=== PATIENT | female | born 1990 | race Caucasian/White ===

== ENCOUNTER 2021-11-27 08:00 | Outpatient (RCR) | payer OTHER, MEDICAID, SELFPAY ==
--- NOTE | 2021-11-27 10:10 | BH.SGPN.GN ---
Behaviors/Verbalizations/Mental Status: [] Eye contact is good. Motor activity is appropriate. Appearance is casual. Speech is Appropriate. Mood is anxious. Affect is congruent. Thoughts are linear and logical. No evidence of psychosis. Client Response/Progress/Benefit: [] Pt did not participate in group discussions. Attentive AEB by note taking during psychoeducation on the types cognitive distortions, the CBT triangle, and automatic thoughts. This group was very information heavy as group was introduced to the various cognitive distortions. Attentive during interactive discussions amongst peers in which they gave examples of certain cognitive distortions. Benefited from increased awareness and education on cognitive distortions and how they impact mental health. Will continue in IOP to prevent decompensation, maintain safety, and improve functioning. Narrative Note: []
--- NOTE | 2021-11-27 11:10 | BH.SGPN.GN ---
Behaviors/Verbalizations/Mental Status: []Eye contact is fair. Motor activity is appropriate. Appearance is casual. hygiene is fair. Speech is Appropriate. Mood is anxious. Affect is constricted. Thoughts are linear and logical. No evidence of psychosis. Client Response/Progress/Benefit: []Pt was semi-engaged participant AEB lmited contributions throughout group, but did appear to listen attentively to psychoeducation and others.Questions were posed in the fashion of Jeopardeshawn and the categories included; Identifying the Cognitive Distortion, Ways to reframe cognitive distortions, Examples of cognitive distortions, and other areas related to cognitive distortions. This was an engaging way to help reinforce psychoeducation and to help client retain the information through examples and practicing. Pt was more passive in the coming up with answers to the questions, but did appear to listen to the material. Benefited from rehearsing ways to challenge/reframe cognitive distortions and by gaining increased insight into examples/definitions of 10 most common cognitive distortions. Will continue in IOP to increase healthy coping, increase socialization, and prevent decompensation.
--- NOTE | 2021-11-27 12:15 | BH.COMM ---
Communication Note - Communication with Client Communication Note: Met with patient after IOP today to address and concerns. Pt is very hesitant to meet with program psychiatrist Dr. Wong this week. Meeting with an unfamiliar psychiatrist is trigger for patient as she is fearful psychiatrist will diagnose her with something new and disrupt her current treatment with established providers (new dx or try to change medications). Pt is aware that meeting with program psychiatrist is requirement for the program. Due to this causing significant distress pt's concerns were discussed with treatment team and we problem-solved ways to adjust requirements so as not to cause decompensation and encourage continued participation in the program. Pt agrees to meet with program psychiatrist for initial assessment only.
--- NOTE | 2021-11-27 14:00 | BH.COMM_ITS ---
Communication Note - Communication with Client Communication Note: Met with patient to complete initial paperwork. No sig nificant changes since pre-admission screening. Completed [place] Suicide Screening. Moderate risk. Pt has hx of one prior suicide attempt, resulting in hospitalization approx. 12 years ago in which pt attempted to overdose on her psychiatric medications. Hx of prior preparatory behavior in which pt gathered her pills with plans to overdose, but denies this happening in the past 2-3 years. Endorses passive thoughts of not caring if something happened to her or if she did not wake up, but not for the past 2 weeks. Denies any current plan or intent and reports ?I?ve worked really hard on getting into a good place with that. I?m doing really well in that area right now?. Hx of self-harm via superficial lacerations, last occurring 5 years ago. Denies access to lethal means and reports her mother helps to cyber security manager her medications. Pt denies hx of HI, plan or intent. Case discussed with Dr. Fitzgerald with plan to admit to IOP level of care with dx of Bipolar 2 disorder F31.81
--- NOTE | 2021-11-27 14:08 | BH.MTP_ITS ---
[facility] Treatment Plan - Patient Information Program Physician:: Dr. Tammie Fitzgerald Primary Therapist:: SHRUTHI Lua - Psychiatric Diagnoses Psychiatric Diagnoses:: Bipolar II Disorder Diagnosis Code(s):: F31.81 - Estimated LOS Estimated LOS (in weeks):: 6 Problem/Goal #1 - Problem/Goal #1 Stated Goal:: Client will reduce depression and worthlessness due to Bipolar Disorder through IOP Services. Description of Barriers: Client's negative thinking, distorted thoughts, difficulties opening up to others, anhedonia, and suspicion of others are potential barriers to treatment. Functional Impact: The patient is a 31-year-old single, female with a history of bipolar 2 disorder and post-concussion syndrome who was referred to the [facility] intensive outpatient program by her current therapist due to intrusive, negative thoughts, depression and anxiety. Pt reports difficulty trusting new providers, though reports trusting her current providers and is satisfied with their care. She has fear of talking about her past as it triggers bad memories, and therefore provided limited information. At time of intake, pt endorsed hopelessness, worthlessness, isolation, loss of enjoyment, low energy and concentration, ruminating thoughts, anxiety, fleeting, passive suicidal ideation but denies active suicidal ideation, plan for suicide, homicidal ideation, hallucinations or delusions. She denies a history of OCD, eating disorder and is not comfortable discussing trauma or possible PTSD. Pt reports current sx are impacting occupational and social functioning. - Objectives Objective #1 Stated Objective: Client will learn and utilize 2-3 healthy coping strategies to manage depressive symptoms as shown by reduced DSM-5 cross-cutting symptom measure score. Interventions: Therapist will utilize CBT techniques to assist client with understanding the connection between thoughts, feelings and behaviors. Education will be provided on behavioral activation. Therapist will assist client in learning internal coping strategies to manage depressive symptoms, along with helping client identify triggers. Discharge Criteria: Client will have achieved this goal when can verbalize and has practiced at least 2 healthy coping strategies and pt?s score on the DSM 5 cross cutting measure for depression has been decreased and per pt?s report daily functioning has improved. Target Date: 01/08/22 Review Date: 12/18/21 Objective #2 Stated Objective: Client will identify and replace 2-3 negative thinking patterns that reinforce depressive symptoms. Interventions: Therapist will assist client in developing an awareness of the cognitive messages that reinforce depressive thinking. Therapist will also assist client in challenging negative thinking patterns. Discharge Criteria: Client will have achieved this goal when can identify at least 2 negative thinking patterns, replace negative thinking with more positive, affirmative messages. Target Date: 01/08/22 Review Date: 12/18/21 Problem/Goal #2 - Problem/Goal #2 Stated Goal:: Stabilize anxiety level while increasing ability to function on a daily basis. Description of Barriers: Client's negative thinking, distorted thoughts, difficulties opening up to others, anhedonia, and suspicion of others are potential barriers to treatment. Functional Impact: The patient is a 31-year-old single, female with a history of bipolar 2 disorder and post-concussion syndrome who was referred to the [facility] intensive outpatient program by her current therapist due to intrusive, negative thoughts, depression and anxiety. Pt reports difficulty trusting new providers, though reports trusting her current providers and is satisfied with their care. She has fear of talking about her past as it triggers bad memories, and therefore provided limited information. At time of intake, pt endorsed hopelessness, worthlessness, isolation, loss of enjoyment, low energy and concentration, ruminating thoughts, anxiety, fleeting, passive suicidal ideation but denies active suicidal ideation, plan for suicide, homicidal ideation, hallucinations or delusions. She denies a history of OCD, eating disorder and is not comfortable discussing trauma or possible PTSD. Pt reports current sx are impacting occupational and social functioning. - Objectives Objective #1 Stated Objective: Client will increase social interactions and learn 2-3 strategies to improve interpersonal effectiveness skills. Interventions: Therapist will use cognitive restructuring techniques and help client gain awareness of negative thoughts that reinforce avoidance behaviors and fear of judgement. Therapist will help client incorporate mindfulness, opposite action, and self-talk strategies to manage anxiety. Discharge Criteria: Pt will report increased social interactions and use of at least two interpersonal effectiveness skills to reduce anxiety in these situations. Target Date: 01/08/22 Review Date: 12/18/21 Objective #2 Stated Objective: Pt will decrease anxious symptoms AEB pt?s score on the DSM 5 cross-cutting measure improve pt?s daily functioning. Interventions: Through groups and individual therapy, pt will be provided education about anxiety?s impact on body and common physiological reaction to anxiety. Therapist will teach pt appropriate breathing techniques and build healthy coping skills to manage daily anxieties. Discharge Criteria: Pt will have met this goal when pt?s score on the DSM 5 cross cutting measure for anxiety has been decreased and per pt?s report daily functioning has improved. Target Date: 01/08/22 Review Date: 12/18/21
--- NOTE | 2021-11-27 14:08 | BH.MDN ---
Multi-Disciplinary Note - Note 30-min Individual Time Started:: 08:53 Date: 11/27/21 Purpose of session/treatment goals addressed:: To gather information on client's current stressors, symptoms, triggers, and tx goals. Another goal was to build rapport, provide psychoeducation, and provide emotional support. Eye Contact:: Good Motor Activity:: Appropriate, Restless Appearance:: Casual Speech:: Pressured Mood:: Anxious, Depressed Affect:: Constricted Thoughts:: Linear, Logical, Racing, No evidence of hallucinations/delusions noted Staff Interventions:: psychoeducation on: - learned behaviors, coping skill development, rapport building, strengths perspective, treatment planning, goal setting Client Response:: Pt responded well to session, open to meeting with therapist. Pt reports she has been struggling with her mental health for much of her life, but that her symptoms have gotten much worse in the past two years. Shared struggling to cope throughout the pandemic and found that she spent a majority of her time isolated, watching television, or stress eating. Pt noted that she has struggled with maintaining healthy supports as she engages in social activities but does not remember or think about keeping in touch with the people she meets. States she does have on friend she made through an [employer] group help by her outpatient mental health providers, [facility] in [place]. Pt has worked with this agency for the last 2 years and was in counseling for 10 years at another agency prior to that. Reports counseling has been helpful in learning to better manage her emotions and cope with depression and suicidal thoughts in the past. Pt stated her primary stressor is coping with post-concussion syndrome as well as developing more independence. Pt has had 2 concussions in the past year with the first requiring hospitalization. She noted struggling to decipher whether her fatigue is mental health or physical health related at times and would like to develop strategies for better checking-in with herself. Pt would also like to improve self-confidence, improve social network, and better manage her anxiety. She indicated not wanting to focus on her depressive sx as she is working on this in outpatient tx and finds it upsetting to revisit past depressive episodes. Reports feeling encouraged and excited to begin the IOP tx process. Risks/Concerns:: Pt denies any active suicidal ideations, plan, or intent as of 11/27/21. denies any HI. future oriented and motivated. Progress Toward Goals/Plan:: Pt's first day of IOP tx. Pt shared she has social anxiety, so group therapy is out of her comfort zone, but pt is hoping to improve anxiety and find skills through the groups?. Pt currently endorses a depressed mood, low confidence, racing and ruminating thoughts, anxiety, guilt, and history of fleeting passive SI. Pt reports her symptoms are causing her to rely heavily on supports and she would like to improve her ability to cope independently. Pt has outpatient counseling at [facility] services already established. Pt will continue IOP tx to prevent decompensation, increase healthy coping skills, and improve overall functioning. Time Stopped:: 09:30
--- NOTE | 2021-11-29 08:55 | BH.SGPN.GN ---
Behaviors/Verbalizations/Mental Status: []Eye contact fair to good, casually dressed, motor activity appropriate, speech normal rate and tone, mood anxious and depressed, constricted affect, thoughts linear and intact, no evidence of delusions or hallucinations. Reviewed pt's symptom tracker, denies suicidal ideation, plan, or intent as of this date 11/29/21. Client Response/Progress/Benefit: []Pt responded well to session, attentive and nodding at times as other?s shared throughout. Pt reports feeling irritated this morning and shared that she has recently had an influx in physical health sx. Noted that her physical health has been taking longer than she had expected to heal and that this has been impacting her mood in turn. Noted trying to remind herself to slow down and continue to practice gratitude daily which has been helpful. Benefited from structure and support of group setting. Recommended continued IOP tx to continue to improve healthy coping skills, reduce depressive sx, and further improve mood stability. Narrative Note: []
--- NOTE | 2021-11-29 10:00 | BH.SGPN.GN ---
Behaviors/Verbalizations/Mental Status: []Pt alert and oriented, neatly dressed and groomed. Eye contact stares. Motor activity appropriate. Speech within normal limits. Affect constricted, mood anxious. Thoughts linear, logical, no signs of hallucinations or delusions. Client Response/Progress/Benefit: []Pt responded well to session AEB sharing when prompted and listening attentively to others. Pt ?was quiet throughout group, but she appeared to be taking notes and nodding at times. Pt appeared to connect to psychoeducation on types of boundaries, including physical, emotional, and intellectual. Pt listened attentively and nodding throughout discussion in which group members shared personal examples of different types of boundaries. Pt appeared to benefit from increased knowledge of the types of boundaries and increased self-awareness of personal boundaries. Will continue IOP tx to prevent decompensation, reduce intensity of symptoms, and improve daily functioning. ? Narrative Note: []
--- NOTE | 2021-11-29 10:10 | BH.NA_ITS ---
Physical Data - Vital Signs Pulse Rate: 86 Blood Pressure: 122/81 - Height/Weight Height: 1.7 m Weight:: 71.214 kg Weight in Pounds: 157.0 lbs Current Medication Compliance - Medication Compliance Do you take your medication as prescribed?: Yes Nutritional History - Appetite Nutritional Instructions:: If client shows signs of a swallowing problem, weight change of 10 pounds or more in the last month, or is on a diabetic diet, the physician will review and request a dietitian consult, as appropriate. All unintentional weight loss will be referred to the physician for decision on need for dietitian consult. Describe your appetite:: Good - Client states she gained weight during COVID lockdown but states she has since lost it all. Functional Assessment - Sleep Pattern Describe any problems with sleeping: Client states she prioritizes sleep and sleeps about 8 hours per night. - Activities Motor Activity:: Functional Sensory/Communication Assess - Communication Problems Do you have difficulty understanding what people are saying?: No Medical Problems/History - Neurological Conditions Neurological: Other (See comments) - had concussions in 2019 and 2020 and had post-concussive syndrome - Pain Assessment Do you have acute or chronic pain?: No Surgical History - Surgical History Have you had any surgeries? If so, list type and date:: Yes - wisdom teeth removal Substance Abuse - Substance Abuse Please describe substance abuse in the last 30 days:: Client reports past social alcohol use but denies at this time. Client denies tobacco or substance use. Client reports rare caffeine use. Mental Status Summary - Mental Status Significant Findings/Observations on Appearance and Mood:: Client is alert and oriented x 4. Client is cooperative with assessment and makes fair eye contact. Client is casually groomed with good hygiene. Client's voice has normal rate and volume. Client has normal processing and makes logical associations. Client denies delusions/hallucinations. Client reports some passive SI, denies intent/plan at this time, but does states sometimes SI worsens around when her menstrual cycle starts. Suicide Assessment - Suicidal Ideation Are you currently or have you been suicidal in the past?: Yes - passive SI at times, denies at this time Suicidal Intentional Rating Scale (SIRS): Suicidal thoughts (past) Physician Notification: If Active suicidal thoughts/Will not contract for safety is checked, contact physician and document in the Physician Notification section below. Assault History/Potential Past Psychiatric History - MH Treatment Hx Past Psychiatric Medications:: Client states lots Age of first mental health symptoms: Client was diagnosed with bipolar 2 at age 19 and has been on medication for mental health since then. Describe (age, circumstance, etc) any past hospitalizations: Several hospitalizations, but none since 2011. Client had a suicide attempt by overdose in 2009. Current providers for mental health treatment (counselor, psychiatrist, medical case manager, etc.): counselor Nehemias Wick at [facility]. Psychiatrist- Dr. Archie House in [place]. Fall Risk Assessment - Age Age: Less than 60 - Mental Status Mental Status: Willing & able to ask for assistance when needed - Physical Status Physical Status: No problems - Impairments Impairments: None - Elimination Elimination: Continent AND independent - Gait or Balance Gait or Balance: Walks independently - Hx of Falls History of falls in the past 6 months: No known history - Medications/Substances Psychotropics:: Antidepressants, Antipsychotics Medications/substances used within the past 24 hours or ordered to administer: 1-2 of the medications/substances listed above - Total Score Total Points:: 1 RN Summary of Impressions - Impressions Recommendations: Include psychiatric and medical issues, treatment planning recommendations, and discharge planning needs. Impressions: Psychiatric Issues: bipolar 2 disorder - Level of Care How do the client's current symptoms and functional deficits support need for this level of care?: Client was referred to IOP by therapist for worsening intrusive thoughts and fleeting SI. Client states her anxiety and depression have worsened since her concussions in 2019 and 2020 and having post-concussive syndrome and COVID happening with a lockdown which increased her isolation. Client states since 2019, she has found it harder to cope with things. Client also reports a lot of intrusive negative thinking and feeling hopeless. Client reports passive SI at times, stating she feels she has more SI thoughts around when her menses cycle starts. IOP will promote gains and prevent further decompensation while providing social support and skills training.
[2021-11-29 10:30] VITALS: BP 122/81; PULSE 86
--- NOTE | 2021-11-29 11:05 | BH.SGPN.GN ---
Behaviors/Verbalizations/Mental Status: [] Client alert and oriented, casually dressed and fairly groomed. Eye contact fair. Motor activity normal. Speech within normal limits. Affect constricted, mood anxious. Thoughts linear and intact. no signs of delusions or hallucinations. Client Response/Progress/Benefit: [] Client passive participant AEB no contributions throughout group discussion. However, client did appear to listen to psychoeducation about boundary styles and listen attentively to others. Group discussed the different boundary setting styles which included rigid, porous, and flexible. Client worked in small group discussion of identifying the pros and cons of each boundary setting style. As a group discussed various strategies to set boundaries. Client did not share which boundary style she connects with the most. Seemed to benefit from increased awareness of how different boundary styles can impact mental health. Client will continue IOP tx to increase ability to regulate emotions, challenge distortions, and increase application of learned skills.
--- NOTE | 2021-11-29 12:27 | BH.PSY.EVA_ITS ---
Psychiatric Evaluation Initial Evaluation Initial Evaluation: History of Present Illness: [] The patient is a 31-year-old single, female with a history of bipolar 2 disorder who was referred to the [facility] intensive outpatient program by her current therapist due to intrusive, negative thoughts, depression and anxiety. Records were reviewed including a letter from the patient's therapist and the patient has a history of negative past experience with psychiatric providers inpatient and outpatient and has difficulty trusting new providers. She trusts her current providers and is very satisfied with their care. She has fear of talking about her past as it triggers bad memories. In the past talk of the patient's deficits has often led to decompensation. For this reason the patient was given the option of refusing to discuss certain topics during the evaluation. The patient endorses being somewhat down and sad. She endorses hopelessness, worthlessness but denies guilt. She had some decompensation and extreme isolation during the COVID pandemic and has been continuing to isolating herself. She describes a history of 2 concussions in 2019 in 2020 which did not involve loss of consciousness. The patient states that she was diagnosed with postconcussive syndromes after those and this has caused her mental health symptoms to also worsen. She spends a lot of time worrying and ruminating negatively fully about the possibility of postconcussive syndrome worsening. Her appetite is okay and she is sleeping 8 hours a night. She enjoys a few things she does but not many. Energy level is low and concentration has been decreased since her concussions in 2019. She is a worrier by nature and worries a lot. She is fearful that her mental health symptoms could worsen. She has had panic attacks but she has not had any had any for several years now. She does have a history of self-harm but she does not wish to elaborate any further on that. She denies a history of OCD, eating disorder and is not comfortable discussing trauma or possible PTSD. She admits to passive thoughts that she would not care if she . She admits to fleeting, passive suicidal ideation but denies active suicidal ideation, plan for suicide, homicidal ideation, hallucinations or delusions. She has had hypomania in the past but she states that it is not very often and has not had it recently. Primary support she has her mom and her sister. Current Psychiatric Medications: [] Seroquel 100 mg p.o. nightly and 25 mg p.o. 3 times daily as needed; Wellbutrin XL 150 mg p.o. every morning; Lamictal 300 mg p.o. nightly Past Psychiatric History: [] The patient has had several prior psychiatric admissions with the most recent one being at [facility] in 2011. She had a suicide attempt in 2009 but does not wish to go into detail about this. She has a counselor or therapist name Nehemias Wick and gets weekly counseling which she feels has been helpful. She also has a psychiatrist currently. Substance Use History: [] She is a non-smoker and no vaping. No marijuana use. No alcohol use and no drug use. No rehab ever. Allergies: [] No known allergies Medications: [] Vitamins and psych meds as dictated above. Past Medical History: [] History of concussions where the patient stood up in a car and hit her head on the ceiling in 2019. No loss of consciousness ever. Patient describes postconcussive syndrome being diagnosed with decreased concentration and other symptoms including worsening of her mental health symptoms since the concussion. [place] teeth surgery and no other surgery. She is a 0 para 0 female with regular menstrual periods and is not on any control. She does have some symptoms of PMS. Family Psychiatric History: [] Mother and father both in their 60s. Paternal grandfather and paternal aunt have a history of depression. No completed suicides in the family. No substance issues in the family. Personal/Social History: [] The patient refuses to give a developmental or social history as talking about her past sometimes triggers her to feel worse. Legal History: [] No arrests. 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 No DUIs. Review of Systems: [] Negative except as noted in present illness but could be incomplete as the patient did not want to elaborate on certain questions. Vital Signs: [] Vital signs and exam were reviewed in the records and in the nurses notes and updated and the patient is deemed medically able to participate in the IOP program. Mental Status Examination: [] The patient is a 31-year-old female who appears normal for stated age and is casually dressed and groomed with good hygiene. She is ambulatory with a normal gait and has no psychomotor agitation or retardation. She is cooperative but somewhat reticent during the interview. Speech is normal rate and rhythm and fluent with no pressure. Eye contact is somewhat poor as the patient looks down or away during most of the interview. Mood is depressed. Affect is constricted. Thought process is goal-directed and organized. Thought content: There is evidence of passive thoughts of and fleeting, passive suicidal ideation. There is evidence of mistrust of psychiatric providers. There is no evidence of active suicidal ideation, plan for suicide, homicidal ideation, hallucinations, delusions or symptoms of elise. Reality testing is intact. Intelligence is average or above. Judgment is in tact. Insight is fair to good. Impulsivity is moderate. Diagnoses: [] 1. Bipolar 2 disorder Plan: [] The patient will start the IOP program at [facility] as the structure, support, education and group therapy will hopefully prevent worsening of the patient's symptoms which could lead to hospitalization. She felt safe during the interview and if it anytime she does not feel safe she will let us know or go to the emergency room. The risk, options and possible complications and side effects of the medications were discussed with the patient and she understands and accepts these. The patient had questions about possible symptoms of PMS and the various treatments of PMS were discussed with the patient and she understands the options and possible side effects of those treatments including control pills or taking a low-dose of an SSRI in the luteal phase of her menstrual cycle. This was not discussed with the patient but Lamictal can cause cognitive symptoms at 300 mg and possibly could be considered to be decreased to possibly help with some of the postconcussive symptoms or prevent their exacerbation. No medication changes were made today. The patient wishes to have her outpatient providers to manage her medications. The patient will continue to follow-up with outpatient providers and I will see the patient in follow-up as needed and on a regular basis while she is in the IOP program.
--- NOTE | 2021-11-29 12:39 | BH.DR.ITP ---
Initial Treatment Plan Patient Information Visit Information: ADMISSION DATE: EXPECTED LOS: 4-6 weeks Problems/Symptoms Problem #1:: Depression Symptom:: Sadness, hopelessness, worthlessness, anhedonia, low energy, decreased concentration, passive thoughts of , fleeting, passive suicidal ideation Problem #2:: Anxiety Symptom:: Worry, rumination
--- NOTE | 2021-12-01 09:05 | BH.SGPN.GN ---
Behaviors/Verbalizations/Mental Status: [] Eye contact is poor. Motor activity is appropriate. Appearance is casual. Speech is Appropriate. Mood is anxious. Affect is congruent. Thoughts are linear and logical. No evidence of psychosis. Reviewed daily check in sheet and no reports of SI. Client Response/Progress/Benefit: [] Pt participated at times during the group discussion. Attentive. Daily symptom tracker notes / for anxiety and irritability. He check-in was very brief and concise. States that a mental health win was increased awareness and insight identifying when she is using the cognitive distortion of ?mental filter?. Discussed how this is helpful to her mental health. Also shared that she called support when it was appropriate. Stressor is ?relationship conflict? which she did not elaborate. Emotion for today is ?tired and anxious?. Benefited from group support, encouragement, and feedback. Will continue in IOP to prevent decompensation, increase healthy coping, and decrease negative thoughts. Narrative Note: []
--- NOTE | 2021-12-01 10:13 | BH.SGPN.GN ---
Behaviors/Verbalizations/Mental Status: []Client alert and oriented, casually dressed and groomed. Eye contact good. Motor activity WNL. Speech appropriate rate/tone, providing limited input unless prompted. Affect congruent, mood dysthymic and anxious. Thoughts linear, logical, no signs of hallucinations or delusions.?? Client Response/Progress/Benefit: []Pt responded well to session, provided input when prompted and listening attentively throughout. Pt participated in group discussion regarding mental health benefits of change. Noted that change can result in improved perspective. Pt identified three small personal changes to improve their mental health as: increased confidence, decreased all or nothing thinking, and more gratitude. Identified current barriers keeping pt from making those changes to be avoidance. Pt appeared to benefit from gaining awareness of personal changes that would improve mental health and the barriers keeping client stuck. Progress noted in pt increased comfort and engagement in the group setting. Pt to continue IOP tx to further increase healthy coping skills, improve anxiety management, and maintain current gains.? Narrative Note: []
--- NOTE | 2021-12-01 11:14 | BH.SGPN.GN ---
Behaviors/Verbalizations/Mental Status: []Client alert and oriented, casually dressed and groomed. Eye contact good. Motor activity appropriate. Speech within normal limits, quiet. Affect congruent, mood anxious. Thoughts linear, logical, no signs of hallucinations or delusions. Client Response/Progress/Benefit: []Pt responded well to session, participating in activity, and providing input when prompted. Did well to process the activity and identify how barriers and skills used in accomplishing the task related to making healthy changes in one?s own life. Pt selected one change they would like to make and created a SMART goal to help make this change. Shared she wants to work on increasing her ability to have more of an ?attitude of gratitude?. Discussed that this change would help client have more confidence and hope. Client?s goal was to start actively identifying small positives she notices throughout the day and writing these down. Client benefited from working with group to identify strategies to overcome barriers to change and create a plan for implementing one small change promoting personal growth. Client recommended to continue IOP tx to reduce anxiety and improve interpersonal effectiveness skills. Narrative Note: []
--- NOTE | 2021-12-04 09:05 | BH.SGPN.GN ---
Behaviors/Verbalizations/Mental Status: [] Client alert and oriented, casually dressed and groomed. Eye contact normal. Motor activity appropriate. Speech normal. Affect congruent, mood euthymic. Thoughts linear, logical, no signs of hallucinations or delusions. Reviewed client?s symptom tracker, no risk for suicidal ideation, plan, or intent as of 12/04/21 Client Response/Progress/Benefit: [] Client responded well to session, offering ideas to peers and providing encouragement. Client reports feeling overwhelmed this morning with indicated that she cannot pin point the cause for her feeling this wa, but experiencing a general sense of it. Client shared her recent wins which included confronting conflict she had with a friend prosocially with positive communication. Cient indicated that felt freeing to be able to deal with conflict in a healthy way that ended positively for her. Client also shared reaching out to a support instead of ruminating on her thoughts. Client appeared to benefit from reflecting on her growth. Client will continue IOP tx to increase overall functioning. Narrative Note: []
--- NOTE | 2021-12-04 10:10 | BH.SGPN.GN ---
Behaviors/Verbalizations/Mental Status: [] Client alert and oriented, casually dressed and groomed. Eye contact good. Motor activity appropriate. Speech within normal limits. Affect congruent, mood euthymic. Thoughts linear, logical, no signs of hallucinations or delusions. Client Response/Progress/Benefit: [] Client responded well to session, attentive and providing input throughout. Participated in discussion of things that can keep people feeling trapped or stuck in life including; avoidance, unhealthy coping, isolation, inconsistent boundaries, and surrounding self with toxic people. Group discussed the connection between thoughts, emotions, and behaviors as well as how negative thinking can keep a person stuck. Client attentive during psychoeducation on maintenance cycles. Client able to identify negative thoughts that have kept client stuck which included ?I am broken. =Client identified these thoughts lead her to be afraid of constant failure. Appeared to benefit from gaining awareness of how negative thoughts reinforce mental health symptoms and keep people stuck. Will continue IOP tx to prevent decompensation and increase overall functioning. Narrative Note: []
--- NOTE | 2021-12-04 11:10 | BH.SGPN.GN ---
Behaviors/Verbalizations/Mental Status: []Client alert and oriented, casually dressed and groomed. Eye contact good. Motor activity appropriate. Speech within normal limits. Affect congruent, mood euthymic and anxious. Thoughts linear, logical, no signs of hallucinations or delusions. Client Response/Progress/Benefit: [] Client responded well to session, contributing to discussion and providing supportive feedback. Client identified a negative thought that has kept her stuck. Client's thought was I can't do it. Client reported when she thinks this way, she becomes overly dependent on others, avoids, and is in denial. Client worked to reframe the thought by finding more rational, realistic ways to look at the thoughts and then processed within group setting. Client reframed the thought to ?I can do some thing well, I can learn how and it's okay to need support? Client stated she will use positive self-talk to continue challenging negative self-talk. Client appeared to benefit from practicing challenging negative thinking. Client will continue IOP tx to increase self worth and utalize postive coping skills.
--- NOTE | 2021-12-06 09:00 | BH.SGPN.GN ---
Behaviors/Verbalizations/Mental Status: [] Eye contact is good. Motor activity is appropriate. Appearance is casual. Speech is Appropriate. Mood is anxious. Affect is congruent. Thoughts are linear and logical. No evidence of psychosis. Reviewed daily check in sheet and no reports of SI Client Response/Progress/Benefit: [] pt was an active participant in group discussions on skills to combat negative thoughts. Attentive. Provided appropriate feedback. Daily symptom tracker notes 3/5 for irritability and 2/5 for depression. Mental health wins include going for a walk for self-care and following through with an appt yesterday. Improved communication with support. She briefly discussed stressors in her life. Emotion for today is ?stressed?. Able to identify skills to utilize today to manage emotions and stress. Benefited from group support, encouragement, and feedback. Will continue in IOP to maintain safety, increase healthy coping, and prevent decompensation. Narrative Note: []
--- NOTE | 2021-12-06 10:05 | BH.SGPN.GN ---
Behaviors/Verbalizations/Mental Status: [] Client alert and oriented, neatly dressed and groomed. Eye contact good. Motor activity appropriate. Speech within normal limits. Affect congruent, mood euthymic. Thoughts linear, logical, no signs of hallucinations or delusions. Client Response/Progress/Benefit: [] Client was an active participant in group discussions. Attentive during psychoeducation on 4 types of conflict styles (Competing, Collaborating, Avoiding, and Accommodating). Worked with group to define conflict and identify how conflict is helpful. With peers identified barriers to addressing or managing conflict which included: wanting to avoid difficult feelings/emotions, lack of communication skills, and cognitive distortions. Client believes they use the cooperative style the most. Client discussed how they used to use the avoidance, but sees more benefit in being cooperative.. Benefited from group due to increase insight and awareness of benefits to conflict, conflict styles, and obstacles to managing conflict. Will continue in IOP to prevent decompensation, increase self esteem, and increase positive coping skills. Narrative Note: []
--- NOTE | 2021-12-06 14:45 | BH.MDN_ITS ---
Multi-Disciplinary Note - Note 30-min Individual Time Started:: 11:25 Date: 12/06/21 Purpose of session/treatment goals addressed:: To work on goal #1 of pt's treatment plan. Another goal was to discuss radical acceptance and self- compassion. Eye Contact:: Good - at times tearful when discussing self-talk Motor Activity:: Appropriate Appearance:: Casual Speech:: Appropriate Mood:: Anxious, Depressed Affect:: Congruent Thoughts:: Linear, Logical, No evidence of hallucinations/delusions noted Staff Interventions:: thought challenging, motivational interviewing, psychoeducation on: - dialectical thinking and self-gratitude, strengths perspective, taught coping skills - rehearsed reframing skills Client Response:: Pt responded well to session, open to meeting with therapist. Pt reports feeling kind of stressed out and overwhelmed lately, citing a resurgence of post-concussive sx as the cause. Pt shared struggling to accept her physical limitations related to her post-concussive dx and often tell herself she?s ?making things seem worse than they are? or ?it?s just all in my head and I should be doing better by now?. Expressed increased frustration and negative self-talk following a physical therapy appointment as she was not able to meet with her regular provider and felt her sx were being dismissed and invalidated by the provider who was filling in. Reports struggling to advocate for herself during the exercise portion of the appt. when believing she was being pushed past her physical limitations, resulting in pt collapsing from dizziness. Shared increased negative self-talk and hopelessness afterward, i dentifying thoughts of ?Now I?m disabled both with physical and mental health? and ?When am I ever going to be back to ?normal??. Receptive of discussion regarding her expectations for herself and her idea of what ?normal? and ?successful? look like. Pt appeared to connect well with components of radical acceptance and developing a ?new normal?. Worked to identify people she knows or has heard of who have been successful and maintained ?normal? lives despite physical or mental health issues, which pt reports was helpful. Reported interest in developing more gratitude for herself and what she is capable of doing and accomplishing rather than focusing on self-critical thoughts. Receptive of creating a daily self-gratitude practice and journaling at least one thing she about herself that she is grateful for or has accomplished. Risks/Concerns:: Pt denies any suicidal ideations, plan, or intent as of 12/06/21. Pt denies any HI. Progress Toward Goals/Plan:: Pt continues to report stressors with managing and accepting her post-concussion syndrome, Appears to struggle with negative self- talk and unrealistic expectations of what she ?should? be capable of doing which is impacting her mood and self-esteem. Reports increased irritability, depression, and anxiety as a result. Can identify distortions she is struggling with and receptive of discussion on radical acceptance. Reports continuing to engage in healthy coping and self-care skills on a consistent basis. Pt is progressing AEB her self-report of improved mood overall, however, pt continues to struggle with confidence. Pt will continue IOP tx to promote emotional regulation skills, increase self-confidence, and improve ability to challenge negative thoughts. Time Stopped:: 11:58
--- NOTE | 2021-12-11 10:10 | BH.SGPN.GN ---
Behaviors/Verbalizations/Mental Status: [] Client alert and oriented, casually dressed and appropriately groomed. Eye contact fair. Motor activity appropriate. Speech within normal limits. Affect constricted, mood anxious.. Thoughts linear, logical, no signs of hallucinations or delusions. Client Response/Progress/Benefit: [] Client connected with topic of anxiety and participated throughout, providing input and taking notes. Attentive during psychoeducation on different anxiety disorders and participated throughout interactive discussion defining anxiety and identifying cognitive and physiological symptoms of anxiety. Common cognitive symptoms identified by group included: ?what if thoughts?, all or nothing thinking, and predicting the future type thoughts. Physiological symptoms reported by patient included: tension, upset stomach, fidgety, holding breath, and shaking. Benefited from increased awareness and insight on anxiety and its impact. Will continue IOP tx to increase healthy coping and thought challenge skills and prevent decompensation.
--- NOTE | 2021-12-11 11:15 | BH.SGPN.GN ---
Behaviors/Verbalizations/Mental Status: []Pt alert and oriented, neatly dressed and groomed. Eye contact good. Motor activity appropriate. Speech within normal limits. Affect constricted, mood anxious. Thoughts linear, logical, no signs of hallucinations or delusions. Client Response/Progress/Benefit: []Pt was an active participant in group discussion and providing good insight to peers. Reviewed safety behaviors she engages in that reinforce anxiety. Attentive during psychoeducation on mindfulness coping skills and their impact on mental health wellness. The group worked together to brainstorm anxiety reduction strategies. Pt participated as group practiced two mindfulness strategies. Pt selected using deep breathing today to practice mindfulness. Pt seemed to benefit from increased repertoire of anxiety reduction skills. ?Pt will continue IOP tx to improve daily functioning, reduce negative thinking patterns, and increase self-confidence. ? Narrative Note: []
--- NOTE | 2021-12-13 09:05 | BH.SGPN.GN ---
Behaviors/Verbalizations/Mental Status: []Pt alert and oriented, neatly dressed, hair appeared unwashed. Eye contact good. Motor activity appropriate. Speech within normal limits. Affect constricted, mood calm. Thoughts linear, logical, no signs of hallucinations or delusions. Reviewed pt?s symptom tracker, no risk for suicidal ideation, plan, or intent as of 12/13/21 Client Response/Progress/Benefit: [] Pt responded well to session, asking for feedback and ideas. Pt reports feeling hopeful this morning after hearing ideas and encouragement from peers. Pt has a wedding this weekend and pt feels anxious to be in a social situation. Pt asked peers for advice and pt expressed gratitude for the ideas. Pt identified her mental health wins today as consistently reaching out to her support person and consistently writing in her gratitude journal. Pt appeared to benefit from advice and reflecting on her wins. Pt will continue IOP tx to improve emotional regulation skills, increase self-confidence, and reduce avoidance. Narrative Note: []
--- NOTE | 2021-12-13 11:10 | BH.SGPN.GN ---
Behaviors/Verbalizations/Mental Status: []Pt alert and oriented, casually dressed and appropriately groomed. Eye contact fair. Motor activity appropriate. Speech within normal limits. Affect constricted, mood anxious. Thoughts linear, logical, no signs of hallucinations or delusions. Client Response/Progress/Benefit: []Pt responded well to session as evidenced by Pt listening attentively to others and providing strategies during discussion.? Pt identified personal warning signs for crisis and gained further awareness of earliest warning signs. Pt created a crisis action plan to help better manage warning signs for crisis. Pt able to create action plan for warning sign of decrease in self-care. Pt's action plan included: set small goals, remind self of positive outcome, reach out to support person, and positive affirmations. Pt appeared to benefit from creating a crisis action plan and increasing self-awareness. Pt will continue IOP tx to improve emotion regulation, increase healthy coping and prevent decompensation.
--- NOTE | 2021-12-13 12:00 | BH.MDN_ITS ---
Multi-Disciplinary Note - Note 45-min Individual Time Started:: 10:16 Date: 12/13/21 Purpose of session/treatment goals addressed:: To work on goal #2 of pt's treatment plan. Another goal was to create a plan for managing social anxiety at an upcoming event. Eye Contact:: Good Motor Activity:: Appropriate Appearance:: Casual Speech:: Appropriate Mood:: Euthymic, Anxious Affect:: Congruent Thoughts:: Linear, Logical, No evidence of hallucinations/delusions noted Staff Interventions:: thought challenging, CBT techniques, strengths perspective, taught coping skills - socialization skill building Client Response:: Pt receptive of session, actively engaged in discussion and providing insights throughout. Shared feeling she is making progress in treatment and has learned several coping and thought challenge skills she has f ound helpful. Pt discussed continuing to work on improving her view of self through the use of positive affirmations. Pt went on to discuss a current stressor as her cousin?s upcoming wedding. Shared anxiety about driving their with her parents as her father struggles with road rage, as well as worrying about socializing with other guests. Pt discussed not knowing what to say during times she is supposed to engage in small talk, or how to respond when asked the question ?What have you been up to?. Expressed several negative self-talk messages and distorted thoughts associated with her current state in life. Did well to work with therapist on identifying and challenging related distortions, as well as recognizing positive responses she could give/activities she deserves credit for engaging in right now. Discussed strategies for managing anxiety while at the wedding, which included walking around the venue, having something to do with her hands, engaging in conversation with her mother, and deep breathing. Session was additionally focused on coping strategies for the car. Pt identified listening to music or inspirational podcasts, not engaging with her father when he appears upset, looking out the window, and beep breathing. Risks/Concerns:: Pt denies any suicidal ideations, plan, or intent as of 12/13/21. Pt denies any HI. Progress Toward Goals/Plan:: Pt continues to report stress related to navigating social situations; however, is improving in her ability to identify appropriate responses/coping skills she can use in these moments. Reports an overall improved mood and more positive outlook. Continues to struggle with negative self-talk and unrealistic expectations of self, which pt has insight into. Pt will continue IOP tx to promote independent decision making and healthy coping, reduce distortions, and prevent decompensation. Time Stopped:: 11:05
--- NOTE | 2021-12-20 11:15 | BH.SGPN.GN ---
Behaviors/Verbalizations/Mental Status: []Pt alert and oriented, neatly dressed and groomed. Eye contact good. Motor activity appropriate. Speech within normal limits. Affect constricted, mood anxious. Thoughts linear, logical, no signs of hallucinations or delusions Client Response/Progress/Benefit: []Pt responded well to session, engaged in the experiential activity and attentive throughout group processing. Pt reported fear of failure has kept pt from trying to be social. ?Pt completed fear of failure worksheet and was able to identify thoughts and behaviors that reinforce personal fear of failure including negative thinking, avoidance, and relying on motivation from others. ?Pt participated in small group discussion regarding strategies to overcome fear of failure. Identified wanting to work on setting realistic goals and thinking through what would happen if she failed. Appeared to benefit from increased knowledge of strategies to combat fear of failure and gaining self-awareness. Pt will continue IOP tx to improve interpersonal effectiveness skills, improve self-esteem, and reduce negative self-talk. ? Narrative Note: []
--- NOTE | 2021-12-20 14:19 | BH.MDN_ITS ---
Multi-Disciplinary Note - Note 60-min Individual Time Started:: 08:38 Date: 12/20/21 Purpose of session/treatment goals addressed:: To review progress made in IOP tx, address current stressors, and review new strategies to improve self- compassion and reduce anxiety in group social settings. Eye Contact:: Good Motor Activity:: Appropriate Appearance:: Neat, Casual Speech:: Appropriate Mood:: Anxious Affect:: Congruent Thoughts:: Linear, Logical, No evidence of hallucinations/delusions noted Staff Interventions:: thought challenging, motivational interviewing, strengths perspective, reviewed DSM-5, goal setting - small self-compassion goals Client Response:: Pt responded well to session, reports feeling she has made some improvements overall, but is struggling with continuing to criticize her progress and feel pressure that she ?should? be doing better in tx. Discussed struggling with beliefs that her mental health would take 1-2 years to address and that she would then go ?back to normal?, but that it has been 12 years and she is still struggling. Progress continues to be impacted by pt?s post- concussion syndrome and difficulties in accepting the ongoing physical limitations she is experiencing associated with that. Able to challenge unfair expectations of self and recognize distortions reinforcing negative self-talk. Worked with therapist to identify specific areas of progress pt deserves credit for. Pt identified improved ability to challenge negative thoughts, more consistent use of affirmations, and an overall reduction in duration of anxious thoughts. Discussed working to improve socialization as well and has recently developed a new friendship with someone from her [employer]. Shared this is a positive but has recently been a stressor as she is anxious about maintaining the friendship and irritated that they may have different expectations for the friendship. Receptive of using a DBT ?isaacs mind? approach to challenging and reframing thoughts associated. Additionally, pt discussed wanting to improve her comfort engaging in social settings where she is interacting with multiple people at a time. Shared anxiety about knowing what to say or who to speak to and often finds it easier to interact one-on-one as a result, but would like to develop improved group social skills to improve her comfort levels when in small groups within her outside support groups. Reports wanting to work on applying the skills she learns in the IOP group setting to continue to increase overall comfort levels. Risks/Concerns:: Pt denies any suicidal ideations, plan, or intent as of 12/20. Pt denies any HI. Progress Toward Goals/Plan:: Pt is progressing in IOP AEB self-report of improved mood and sense of accomplishment regarding application of the skills s he is learning. Pt DSM-5 scores for anxiety, depression, and irritability saw an overall increase. Pt indicates this is related to frustrations related to trying to navigate expanding her social network and developing new adult friendships. Pt discussed anxiety about ?messing up? or embarrassing herself, which has resulted in feeling more agitated and hopeless at times. Pt overall positive and encouraged by the progress she has made and recognizes she is capable of continuing to see improvements with her mental health. Additional increased DSM scores may be related to ongoing difficulties with accepting her physical limitations associated with post concussion syndrome. Pt continues to endorse distorted thoughts, negative self-talk, and moderate depressive and anxiety symptoms. Pt will continue IOP tx to promote gains, further improve self-esteem, and improve overall functioning.
--- NOTE | 2021-12-20 15:30 | BH.MTP_ITS ---
Treatment Plan Review Date of Admission:: 11/27/21 Date of Treatment Plan Review:: 12/20/21 Admitting Diagnoses:: Bipolar II Current Diagnoses:: F31.81 Patient's Response to Treatment:: Pt has had consistent attendance while in IOP. She is engaged in both individual and group counseling. Appears motivated and reports implementing skills learned in the program. Self-reports decrease in panic anxiety and improved confidence in her skills. Denies any suicidal ideations in the past two week. Reports decreased intensity, frequency, and duration of depressive sx. Pt has had a recent stressor impacting her anxiety and irritability levels but is actively working to better manage these. This may contribute to recent influx in DSM-5 scores. Reports continued difficulties in challenging self-critical statements, but has seen some progress in overall ability to do so. Reports improved socialization as well. Pt verbalized that she is learning new coping skills and insight which has been helpful. Status of Current Problems and Symptoms: Pt continues to report daily negative and self-critical thoughts reinforcing her depression, as well as distorted thoughts about physical health and progress she believes she ?should? be making which reinforces anxiety. She reports that on days she needs to take additional rest periods due to her post-concussion syndrome she struggles with guilt and worthlessness. Recognizes these are distortions but reports struggling significantly with self-criticism. She does however report improved ability to identify and work on challenging and replacing self-critical thoughts with more positive statements. Reports improved socialization as well. Problem #1 Problem Name:: Depression Status of Goals:: Ob1- (In progress) pt has reported learning internal and external coping skills in group counseling to implement when overwhelmed emotionally. While she is able to identify skills, she continues to struggle with active, consistent application and depressive sx are often maintained by negative thought patterns. Ob2- Not complete (in progress). Pt reports improved awareness of her negative and self-critical thoughts; however, continues to struggle with effectively challenging and replacing these thoughts with affirmations and more self-compassionate language. Team Recommendations:: Continue with current goals. The more we get to know patient it is evident her depression is often related to unrealistic expectations of herself and self-criticism. Will continue to focus on self- compassion. Problem #2 Problem Name:: Anxiety Status of Goals:: Pt reports increased socialization and has started attending two new support groups, however continues to struggle with second guessing herself or feeling awkward in social settings. This often reinforces feelings of irritability and negative self-talk. obj2- (in progress). Pt can list several coping skills, mindfulness skills, and CBT skills to utilize in times of distress; however, continues to struggle with consistent application. Team Recommendations:: Continue with current plan.
--- NOTE | 2021-12-21 10:10 | BH.SGPN.GN ---
Behaviors/Verbalizations/Mental Status: []Pt alert and oriented, casually dressed and groomed. Eye contact good. Motor activity appropriate. Speech within normal limits. Affect constricted, mood dysthymic. Thoughts linear, logical, no signs of hallucinations or delusions. Client Response/Progress/Benefit: []Pt responded well to session AEB contributing to discussion, taking notes, and listening attentively to others. Group discussed the benefits of managed anger and anger as a secondary emotion. Pt shared perspective on negatives from acting out in anger as stress and more mental health issues.? Pt completed worksheet on anger triggers and personal warning signs of anger. Pt identified her biggest triggers as being disrespected, driving, and having to talk on the phone about insurance. Appeared to benefit from increased knowledge of the anger cycle as well as personal triggers. Will continue IOP tx to improve distress tolerance skills, reduce depressive symptoms, and improve overall functioning. Narrative Note: []
--- NOTE | 2021-12-21 11:10 | BH.SGPN.GN ---
Behaviors/Verbalizations/Mental Status: []Client alert and oriented, casually dressed and groomed. Eye contact fair. Motor activity appropriate. Speech within normal limits. Affect constricted, mood anxious. Thoughts linear, logical, no signs of hallucinations or delusions. Client Response/Progress/Benefit: []Pt was engaged throughout AEB her taking notes and listening attentively to others. Did share when elicited by therapist.. Group finished processing cues to anger worksheet. Pt identified behavioral cues to anger include: dirty look/glare, aggressive body language, cursing a lot, passive aggressive, throwing things, and raising voice.. Pt contributed as group brainstormed healthy coping skills for better managing anger which included: music, walking/exercise, changing the environment, communicating with supports, and journaling. Pt appeared to benefit from identifying different techniques to manage anger as well as gaining awareness of potential consequences of unmanaged anger. Will continue IOP tx to continue use of healthy coping, challenge distorted thoughts, and prevent decompensation.
== END 2021-12-25 23:59 ==
LOC: BHIOP 08:00
PROVIDERS: Referring Provider Psychiatry & Neurology Psychiatry; Visit Provider Psychiatry & Neurology Psychiatry
DX: F31.81 Bipolar II disorder (principal)
CPT/HCPCS: S9480; 90832; 90834; 90837; 90853

== ENCOUNTER 2021-12-26 08:09 | Outpatient (RCR) | payer OTHER, MEDICAID, SELFPAY ==
[2021-12-26 00:40] VITALS: BP 122/81; PULSE 86
--- NOTE | 2021-12-26 09:00 | BH.SGPN.GN ---
Behaviors/Verbalizations/Mental Status: []Eye contact fair casually dressed, motor activity appropriate, speech normal rate and tone, mood anxious, constricted affect, thoughts linear and intact, no evidence of delusions or hallucinations. Reviewed pt's symptom tracker pt denies any SI plan, or intent as of this date 12/26/21. Client Response/Progress/Benefit: [] Pt responded well to session, contributing and offering supportive statements. Pt reports feeling anxious this morning as pt wants to address a conflict within a relationship and this requires pt to communicate rather than avoid. Pt has made progress with conflict resolution skills and she is avoiding much less, and pt was reminded of this growth. Pt acknowledged that she has been able to break the cycle of anxiety and depression more quickly since being in IOP. Pt has also been going to yoga and reaching out to healthy supports. Pt appeared to benefit from reflecting on her growth and using this to combat anxiety. Pt will continue IOP tx to reinforce healthy coping skills and establish aftercare. Narrative Note: []
--- NOTE | 2021-12-26 10:05 | BH.SGPN.GN ---
Behaviors/Verbalizations/Mental Status: [] Eye contact is good. Motor activity is appropriate. Appearance is casual. Speech is Appropriate. Mood is anxious. Affect is flat. Thoughts are linear and logical. No evidence of psychosis. Client Response/Progress/Benefit: [] Pt did not participate in group discussions however was attentive during psychoeducation on SMART goals (Specific, Measurable, Achievable, Realistic, and Time-bound) Engaged in group experiential activity. Attentive while peers participated in an interactive discussion with peers in which they worked together to define what a goal is and the benefits of having goals. Benefits identified included; something to look forward too, needed for growth, keeps one motivated, helps us track our progress, given one a sense of purpose, and keeps one busy and engaged. Attentive while peers participated inan interactive discussion in which group identified barrier to setting goals and following through with goals. Barriers identified included; too much time and effort, criticism from self/others, unrealistic expectations, outside stressors, and fear of failure. Benefited from increased awareness of benefits and strategies for goal-setting. Will continue in IOP to prevent decompensation/-re-admission, provide support, and stabilize mood. Narrative Note: []
--- NOTE | 2021-12-26 11:10 | BH.SGPN.GN ---
Behaviors/Verbalizations/Mental Status: []Eye contact is fair. Alert and oriented. Motor activity is appropriate. Appearance is casual. grooming is appropriate. Speech is Appropriate. Mood is anxious. Affect is constricted. Thoughts are linear and logical. No evidence of psychosis or hallucinations. Client Response/Progress/Benefit: []Client was engaged during discussion, did well to complete activity and process with the group. Client was willing to complete the worksheet in which was challenged to develop a personal SMART goal. Client chose the goal of writing three things she is thankful for each day for one week. Client stated this will benefit her by helping her focus on the positives each day. Client identified barriers which included: procrastination and negative mood. Client receptive to identifying solutions for these barriers and willing to begin working on this goal. Benefited from this group by developing a short-term SMART goal related to mental health. Will continue IOP tx to continue use of healthy coping, challenge negative thinking and prevent decompensation.
--- NOTE | 2021-12-28 09:16 | BH.MDN_ITS ---
Multi-Disciplinary Note - Note 45-min Individual Time Started:: 11:10 Date: 12/28/21 Purpose of session/treatment goals addressed:: To work on goal #1 & #2 of pt's treatment plan. Another goal was to discuss healthy conflict resolution and communication to address a recent stress impacting pt?s mental health. Eye Contact:: Good Motor Activity:: Appropriate Appearance:: Casual Speech:: Appropriate Mood:: Anxious, Dysthymic Affect:: Congruent Thoughts:: Linear, Logical, No evidence of hallucinations/delusions noted Staff Interventions:: thought challenging, psychoeducation on: - healthy communication and conflict resolution, CBT techniques, strengths perspective Client Response:: Pt receptive of session, actively engaged and openly discussing current stressors impacting her mental health. Pt shared noticing an influx in depressive sx this week and believes this may be connected with her menstrual cycle. Shared previously discussing possible premenstrual dysphoric disorder and options for hormonal balancing with program psychiatrist at the start of her IOP. Pt noted she has plans to speak further with her outpatient providers about this. Pt discussed creating a plan for practicing increase self- care and compassion when experiencing these sx moving forward. Remainder of session focused on addressing a current interpersonal relationship stressor impacting pt?s mood and anxiety levels. Pt explained that at the start of the pandemic in 2019 she had been struggling with significant depression and isolation and began meeting weekly with the airplane flight attendant at her [employer] for guidance and support. Shared this has been a positive and helpful experience, noting improvements in her overall mood and outlook as a result. Pt described recently receiving an email from the airplane flight attendant indicating he would no longer be able to meet with pt weekly. Expressed feelings of disappointment, confusion, and rejection as she felt this had come ?out of nowhere? and upset that he had communicated this via email rather than in person. Shared wanting to address her frustrations and ask for clarity from the airplane flight attendant in order to prevent damaging the relationship or pt pulling away from the [employer] as a result. Pt is unsure how to communicate this and expressed anxiety associated with the potential conflict. Receptive of discussion reviewing healthy communication and conflict resolution skills. Pt connected with the idea of asking for clarity on the expectations and boundaries between a airplane flight attendant and member of the [employer], as well as what to expect moving forward. Risks/Concerns:: Pt denies any suicidal ideations, plan, or intent as of 12/28/21. Pt denies any HI. Progress Toward Goals/Plan:: Pt continues to report stress related to navigating social situations; specifically when it involves potentially difficult topics of conflict. Pt has been working on improving her use of assertive communication as well as challenging herself to practice more consistent use of social skills in the group environments. She often struggles with anxiety related to not knowing what to say or how to navigate a conversation and seeks reassurance in order to feel more secure in her approach. Pt reports overall feeling she is making progress in tx, but would benefit from continued IOP tx to further improve anxiety management, reduce avoidance in social situations, and prevent decompensation. Time Stopped:: 11:56
--- NOTE | 2021-12-28 10:05 | BH.SGPN.GN ---
Behaviors/Verbalizations/Mental Status: [] Eye contact is good. Motor activity is appropriate. Appearance is casual. Speech is Appropriate. Mood is anxious. Affect is congruent. Thoughts are linear and logical. No evidence of psychosis. Client Response/Progress/Benefit: [] Pt participated at times during group discussions. Attentive during psychoeducation on Communication Styles (Passive, Passive-Aggressive, Aggressive, and Assertive). Participated during interactive discussion on obstacles to effective communication which included; assumptions, unmanaged emotions, minimizing symptoms, resentment, etc. Participated during interactive discussion on benefits to effective communication which included; getting needs met, increased trust, improved relationships, ability to better manage conflict, decreased stress, increased self-worth, and decreased anxiety. Pt was placed in small group and was engaged in identifying benefits and consequences of each communication style. Benefited from increased understanding of communication styles and the impact they have on mental wellness. Will continue in IOP to prevent decompensation, stabilize mood, and to increase healthy coping. Narrative Note: []
--- NOTE | 2022-01-02 09:00 | BH.SGPN.GN ---
Behaviors/Verbalizations/Mental Status: []Pt alert and oriented, casually dressed and groomed. Eye contact fair. Motor activity appropriate. Speech within normal limits. Affect constricted, mood tired and hopeful. Thoughts linear, logical, no signs of hallucinations or delusions. Reviewed pt?s symptom tracker, no risk for suicidal ideation, plan, or intent as of 01/02/22 Client Response/Progress/Benefit: [] Pt responded well to session, attentive and providing supportive statements. Pt reports feeling tired this morning and a little stressed about some apartment issues but pt did not want to go in detail. Pt shared she has been consistently writing in her gratitude journal and she is proud of herself for addressing a conflict in a healthy way. Pt has been working on not avoiding things that make her anxious. Pt appeared to benefit from reflecting on her use of healthy coping skills. Pt will continue IOP tx to further increase mood stability, improve self-confidence, and combat distortions. Narrative Note: []
--- NOTE | 2022-01-02 09:16 | BH.MDN_ITS ---
Multi-Disciplinary Note - Note 30-min Individual Time Started:: 08:29 Date: 01/02/22 Purpose of session/treatment goals addressed:: To work on goal #1 & #2 of pt's treatment plan. Another goal was to address a ongoing stressor impacting pt?s mental health and causing increased irritability. Eye Contact:: Good Motor Activity:: Appropriate Appearance:: Casual Speech:: Appropriate Mood:: Euthymic, Anxious, Irritable Affect:: Congruent Thoughts:: Linear, Logical, No evidence of hallucinations/delusions noted Staff Interventions:: thought challenging, CBT techniques, discharge planning, strengths perspective Client Response:: Pt responded well to session, willing to meet prior to IOP group for the day. Shared feeling mixed emotions today as she has had several positives over the past week but is continuing to struggle with an ongoing stressor related to her apartment. Pt shared that the tenant below her has been smoking marijuana in their apartment and that the smell has been impacting pt?s physical health and in turn her mental health as well. Reports increased stress, anxiety, irritability, and discomfort in her own apartment as a result. Pt noted that she has reached out the landlord on multiple occasions to no avail. Described using assertive communication to advocate for her needs and send a letter to have written documentation of her concerns. Expressed frustration as despite her efforts, the situation has not yet changed. Identified disappointment and hopelessness. Pt provided insight on the importance of continuing to advocate for her needs, but also begin to accept and identify strategies to learn to tolerate her current reality as she does not want to move. Shared that she has looked into options for improving the ventilation in the apartment, keeps windows open when noticing the smell, and is finding more self-care activities she can engage in away from her apartment building. Noted use of thought challenging and calming skills when recognizing she is becoming increasingly stressed or irritated by the situation. Pt shared that she plans to continue with [employer] classes following IOP d/c next week, which should aid in continued emotion regulation and healthy activities outside of the apartment. Remainder of session spent reviewing aftercare and discharge plans. Risks/Concerns:: Pt denies any suicidal ideations, plan, or intent as of 01/02/22. Pt denies any HI. Progress Toward Goals/Plan:: Pt continues to report stress related to navigating social situations, though has seen recent improvements in her ability to navigate difficult conversations and potential confrontation. Noted positive experience in addressing a miscommunication with her slasher operator recently. Pt shared improved ability to engage in activities she enjoys and continues to make gains in her ability to practice self-compassion. She reports ongoing stress and irritability related to external stressors but is continuing to manage these in healthy ways. Pt to discharge from IOP next week and will begin the aftercare program at that time. Additionally discussed interest in the [facility] as well as potential support groups focus on life skill building in her area. Time Stopped:: 09:06
--- NOTE | 2022-01-02 11:10 | BH.SGPN.GN ---
Behaviors/Verbalizations/Mental Status: []Client alert and oriented, casually dressed, hygiene appeared to be tended to. Eye contact fair. Motor activity appropriate. Speech within normal limits. Affect flat, mood anxious. Thoughts linear, logical, no signs of hallucinations or delusions. Client Response/Progress/Benefit: []Client engaged participant AEB client taking notes during discussion and listened attentively to peers. Participated in group discussion on the various areas of self-care, benefits, and types of self-care activities for each area. Client completed worksheet in which client identified current self-care practices and what self-care activities client wants to start using. Client able to complete provided worksheet in which she identified self-care ideas for each area of self-care. Client identified for financial self-care she would like to make a budget, pay bills on time, organize her bills, and maybe take a class on money management. Appeared to benefit from reflecting on the area of self-care client can improve. Client to continue IOP to continue use of healthy coping, challenge negative thinking, and prevent decompensation.
--- NOTE | 2022-01-04 09:00 | BH.SGPN.GN ---
Behaviors/Verbalizations/Mental Status: [] Eye contact is good. Motor activity is appropriate. Appearance is casual. Speech is Appropriate. Mood is euthymic. Affect is full. Thoughts are linear and logical. No evidence of psychosis. Reviewed daily check in sheet and no reports of suicidal ideations or intent. Client Response/Progress/Benefit: [] Pt participated when prompted. Attentive. Daily symptom tracker notes 04/29 for depression and anger. Mental health wins include following through with responsibilities, tasks, and appointments. Keeping up with her gratitude journal. She briefly discussed what this journal entails and how it has been beneficial to her. She asked for feedback from the group related to anxiety about taking classes for a skill. Group was supportive and offered feedback which was beneficial. Also benefited from encouragement and support. Will continue in IOP to maintain gains and prevent decompensation. Narrative Note: []
--- NOTE | 2022-01-04 10:10 | BH.SGPN.GN ---
Behaviors/Verbalizations/Mental Status: [] Client alert and oriented, casually dressed and groomed. Eye contact good. Motor activity appropriate. Speech within normal limits. Affect congruent, mood content. Thoughts linear, logical, no signs of hallucinations or delusions Client Response/Progress/Benefit: [] Client responded well to session AEB sharing and listening attentively to others. Client was engaged throughout group discussion defining fixed mindset and what it can look like. Group identified several aspects of fixed mindset which included; negative outlook, fear of failing, absolute thinking, and inability to grow your intelligence. Group discussed how fixed mindset affects mental health and why we use fixed thoughts. Client participated in experiential activity encouraging client to find solutions to a seemingly impossible task. Client identified personal fixed thoughts in session which included ?I can't do this and I will never get better.? Client gained insight to how these fixed thoughts reduce motivation and keep client stuck in unhealthy cycles. Client appeared to benefit from increased knowledge of fixed mindset and self-awareness of personal fixed thoughts. Will continue IOP treatment to reduce negative self-talk and increase overall functioning. Narrative Note: []
--- NOTE | 2022-01-04 11:10 | BH.SGPN.GN ---
Behaviors/Verbalizations/Mental Status: [] Client alert and oriented, casually dressed and groomed. Eye contact good. Motor activity appropriate. Speech within normal limits. Affect constricted, mood euthymic Thoughts linear, logical, no signs of hallucinations or delusions. Client Response/Progress/Benefit: [] Client engaged during activity and discussion AEB providing some input, connecting with peers, as well as taking notes throughout. Client did well to engage as group worked on identifying characteristics and benefits of adopting a growth mindset. Worked with fellow participants in reframing the example fixed thoughts into growth mindset thoughts. Reframed personal fixed thought of ?I can't do this? with growth mindset thought of ?I can try again? Benefitted from discussing benefits of growth mindset and brainstorming strategies for prompting growth-mindset. Will continue IOP tx to prevent decompensation and increase overall functioning. Narrative Note: [] Narrative Note: []
--- NOTE | 2022-01-09 09:05 | BH.SGPN.GN ---
Behaviors/Verbalizations/Mental Status: [] Eye contact is good. Motor activity is appropriate. Appearance is casual. Speech is Appropriate. Mood is anxious. Affect is congruent. Thoughts are linear and logical. No evidence of psychosis. Reviewed daily check in sheet and no reports of suicidal ideations or intent. Client Response/Progress/Benefit: [] pt participated at times during the group discussions. Attentive. Daily symptom tracker notes /5 for anxiety and 3/5 for depression. Mental health wins include attending a local support group. Shared the reasons for attending the group as well as its benefits. Decreased isolation over the weekend. She asked for feedback from the group on knowing what the appropriate amount is to share. She reports hx of oversharing however believes that she has overcompensated and currently doesn?t share enough. Benefited from group support, encouragement, and feedback. Will continue in IOP to maintain gains. Narrative Note: []
--- NOTE | 2022-01-09 10:15 | BH.SGPN.GN ---
Behaviors/Verbalizations/Mental Status: [] Eye contact is fair. Motor activity is appropriate. Appearance is casual. Speech is Appropriate. Mood is anxious. Affect is constricted. Thoughts are linear and logical. No evidence of psychosis. Client Response/Progress/Benefit: [] Client was mostly passive participant AEB no contributions, however did appear to be taking notes and appeared attentive to others comments. Attentive during psychoeducation on the six types of boundaries (physical, emotional, intellectual, sexual, time, and material) AEB note-taking. Appeared to listen as group contributed to interactive discussion on defining what a boundary is in mental health. Client listened as group identified challenges to setting boundaries which included: fear of other's response, guilt, fear of losing relationships, and lack of confidence. Worked with peers to identify the benefits to setting boundaries such as increased control, benefit to mental health, and increased confidence. Client benefited from increased awareness and insight on the importance/benefit to setting health boundaries. Will continue in IOP to increase healthy coping, challenge distorted thoughts, and prevent decompensation.
--- NOTE | 2022-01-09 11:18 | BH.SGPN.GN ---
Behaviors/Verbalizations/Mental Status: []Client alert and oriented, casually dressed and groomed. Eye contact good. Motor activity appropriate. Speech within normal limits. Affect constricted, mood anxious, euthymic. Thoughts linear, logical, no signs of hallucinations or delusions. Client Response/Progress/Benefit: []Client responded well to session AEB listening attentively to peers and providing input when prompted. Client engaged during psychoeducation on the different boundary styles. Noted she has healthier boundaries now compared to her boundaries in the past. Went on to indicate improved ability to say no if uncomfortable, as well as recognize and ask for her needs to be met. Client worked in a small group to identify strategies for healthy boundary setting. Client identified wanting to work on pausing and ask self-reflection questions before she responds to setting a boundary. Progress noted in self-report of improved boundaries and communication with supports. Will continue IOP tx to prevent decompensation, improve overall functioning, and learn healthy coping skills. Narrative Note: []
--- NOTE | 2022-01-11 09:00 | BH.SGPN.GN ---
Behaviors/Verbalizations/Mental Status: []Pt alert and oriented, casually dressed and groomed. Eye contact poor. Motor activity appropriate. Speech within normal limits. Affect constricted, mood euthymic and anxious. Thoughts linear, logical, no signs of hallucinations or delusions. Reviewed pt?s symptom tracker, no risk for suicidal ideation, plan, or intent as of 01/11/22 Client Response/Progress/Benefit: [] Pt responded well to session, attentive and providing supportive statements. Pt reports feeling hopeful this morning on her last day of IOP tx. Pt reflected on her growth and identified her ability to challenge negative thinking and communicate more with supports. Pt reported she has been more consistent with catching negative thoughts, going to yoga, and focusing on the positives. Pt shared she has some stressors right now, but I don't want to focus on those today. Pt appeared to benefit from reflecting on her progress in IOP. Pt will discharge today as pt has met her treatment goals and no longer meets criteria for IOP level of care. Narrative Note: []
--- NOTE | 2022-01-11 10:10 | BH.SGPN.GN ---
Behaviors/Verbalizations/Mental Status: []Pt alert and oriented, casually dressed and appropriately groomed. Eye contact fair. Motor activity appropriate. Speech within normal limits. Affect constricted, mood anxious. Thoughts linear, logical, no signs of hallucinations or delusions. Client Response/Progress/Benefit: []Pt was an engaged participant AEB providing input, listening to others, and taking notes. Participated in interactive group discussion on internal and external barriers to mental health progress. Pt described current reality as starting to feel more balanced and stable but still experiencing occasional thoughts that race. Reported desired reality is to feel more balanced, use skills to feel more stable, increased social connections, and set goals to give vision for future. Client shared personal barriers to desired realty include: lack of motivation, cognitive distortions, negative thinking, fear, and avoidance. Benefited from increased awareness of current barriers to progress as well as current/desired realities. Pt has made treatment progress since starting IOP and will discharge today.
--- NOTE | 2022-01-11 14:15 | BH.MDN ---
Multi-Disciplinary Note - Note 45-min Individual Time Started:: 08:22 Date: 01/11/22 Purpose of session/treatment goals addressed:: To address current stressors and discuss strategies to help cope with these stressors. Another goal was to discuss discharge and aftercare. Eye Contact:: Good Motor Activity:: Appropriate Appearance:: Casual Speech:: Appropriate Mood:: Euthymic, Anxious Affect:: Congruent Thoughts:: Linear, Logical, No evidence of hallucinations/delusions noted Staff Interventions:: motivational interviewing, discharge planning, strengths perspective, reviewed DSM-5 Client Response:: Pt responded well to session, open to meeting with therapist. Pt shared she has been doing well to manage her emotions and focus on an ?attitude of gratitude?, despite ongoing stressors with her apartment. Pt stated she feels much more confident managing stressors and using assertive communication, as well as reaching out to supports, to advocate for herself and her needs. Pt continues to set goals for her future and she is looking forward to getting involved with [employer] [facility] and returning to weekly yoga and rajat chi classes. Pt reflected on her progress including managing stress better, improved self-compassion and expectations, and feeling more confident in communicating her needs and boundaries with others. Pt wants to do IOP aftercare and will continue seeing her outpatient therapist after discharge. Risks/Concerns:: Pt denies any suicidal ideations, plan, or intent as of 01/11/22. Progress Toward Goals/Plan:: Progress maintained from last session including reduced distorted thinking, improved mood stability, improved assertive communication, and learning to focus more on her strengths. Pt self-reports managing stressors and moments of increased frustration much better than she has in the past few months. Pt is still working on regulating her emotions and communicating with her supports, but this is improving. Pt continues to endorse unrealistic expectations of self, anxiety, and irritability, but over reports improved mood. Pt will d/c from IOP and begin aftercare starting 01/25/22, following the . Pt will also continue with outpatient providers and is planning to begin attending groups at [employer] [facility] each week as well. Time Stopped:: 09:02
--- NOTE | 2022-01-11 15:13 | BH.DS ---
Discharge Summary - Demographics Date of Admission:: 11/27/21 Discharge Date: 01/11/22 Presenting Problems at Admission:: The patient is a 31-year-old single, female with a history of bipolar 2 disorder and post-concussion syndrome who was referred to the [facility] intensive outpatient program by her current therapist due to intrusive, negative thoughts, depression and anxiety. Pt reports difficulty trusting new providers, though reports trusting her current providers and is satisfied with their care. She has fear of talking about her past as it triggers bad memories, and therefore provided limited information. At time of intake, pt endorsed hopelessness, worthlessness, isolation, loss of enjoyment, low energy and concentration, ruminating thoughts, anxiety, fleeting, passive suicidal ideation but denies active suicidal ideation, plan for suicide, homicidal ideation, hallucinations or delusions. She denies a history of OCD, eating disorder and is not comfortable discussing trauma or possible PTSD. Pt reports current sx are impacting occupational and social functioning. Discharge Diagnoses:: Bipolar 2 disorder Reason for Discharge:: Pt has met her treatment goals AEB her reduction of DSM-5 scores, specifically in the areas of not knowing who she is or what she wants in life and OCD. Pt also reports improved emotional regulation, thought challenging, and functioning. Pt no longer meets criteria for [facility] level of tx and will continue with outpatient counseling and IOP aftercare. - Treatment Progress During Treatment & Response: Pt has made several strides since starting IOP as shown by her improved mood, reduced symptoms by 11% overall, and increased ability to manage new and ongoing stressors, as well as negative thinking. When Pt started IOP she was experiencing significant anxiety and depression that was keeping pt from feeling engaged in life and interacting with supports. Now, Pt can better catch and manage thoughts that reinforced negative core beliefs and self-doubt, use healthy coping skills more easily, and she feels more confident in her abilities. Additionally reports improved acceptance and self-compassion related to her post-concussion syndrome, which pt reports has improved her ability to manage this as well. Pt is focusing on developing a gratitude practice, she is setting healthy boundaries, and she is being more social. Pt was engaged in both group and individual therapy sessions. Pt contributed to group discussions when prompted, asked for feedback from peers, and consistently followed through with her goals. In individual sessions, Pt was receptive to feedback, consistent with homework, and willing to push herself despite anxiety. Pt?s high motivation, willingness to challenge her own perspective, and curiosity were likely the reason for progress. Pt plans to attend IOP aftercare as well as follow up with her outpatient providers. Issues Still to be Addressed:: Negative core beliefs, ongoing difficulties in managing communication and conflict resolution with others, setting/maintaining boundaries and realistic expectations, and self-confidence. Discharge Recommendations/Instructions:: Pt will follow up with her outpatient providers at [facility]. Pt sees Dr. Roca for medication management and was just seen for follow-up last week. Pt has an individual counseling appointment on 01/16/22. Pt will start IOP aftercare group on 01/25/22 which lasts eight weeks. Discharge Handout: Complete Discharge Handout with client on aftercare options and continuity of care.
== END 2022-01-11 12:27 | disposition home or self-care (01) ==
LOC: BHIOP 08:09
PROVIDERS: Referring Provider Psychiatry & Neurology Psychiatry; Visit Provider Psychiatry & Neurology Psychiatry
DX: F31.81 Bipolar II disorder (principal)
CPT/HCPCS: S9480; 90832; 90834; 90853

== ENCOUNTER 2022-01-25 13:00 | Outpatient (RCR) | payer OTHER, MEDICAID, SELFPAY ==
--- NOTE | 2022-01-25 14:00 | BH.SGPN.GN ---
Behaviors/Verbalizations/Mental Status: []Client alert and oriented, casually dressed and groomed. Eye contact good. Motor activity appropriate. Speech within normal limits. Affect congruent, mood anxious. Thoughts linear, logical, no signs of hallucinations or delusions. Client Response/Progress/Benefit: []Receptive of session, reports feeling ?blank? today but did well to identify skills she has been using to help cope which included: opposite action, communicating with supports, and consistent gratitude practice to keep her mental health in a positive place. Attentive during discussion of vulnerability and benefits of practicing vulnerability. Reports connecting with reasons we avoid being vulnerable as identified by the group. Group discussed ways we avoid feeling vulnerable and how this negatively affects mental health and relationships. Appeared to benefit from group support and discussion reflecting on the positive impact vulnerability can have on mental health. Shared she could try to more consistently check-in with herself about what she is feeling to practice being vulnerable in the next week. Will continue IOP aftercare to promote gains and reinforce healthy coping skills. Narrative Note: []
--- NOTE | 2022-01-25 14:05 | BH.COMM ---
Communication Note - Communication with Client Communication Note: Presented completed IOP and presents today to starting relapse prevention group which meets once weekly (1.5 hours) for 10 weeks. Case discussed with Dr. De Dios with plan to admit with dx of F31.81
--- NOTE | 2022-01-25 14:12 | BH.MTP ---
Master Treatment Plan - Patient Information Program Physician:: Dr. Tammie Ortiz Primary Therapist:: Natty HAWKINS - Psychiatric Diagnoses Psychiatric Diagnoses:: Bipolar 2 disorder Diagnosis Code(s):: F 31.81 - Estimated LOS Estimated LOS (in weeks):: 8 Problem/Goal #1 - Problem/Goal #1 Stated Goal:: client will maintain or see a reduction in symptoms AEB client score on the DSM 5 cross-cutting measure and improve client's daily functioning. - Objectives Objective #1 Stated Objective: Client will continue to consistently apply healthy coping skills to maintain progress made in IOP tx. Interventions: Through group therapy, client will review warning signs and triggers as well as healthy coping skills learned in IOP tx to successfully maintain gains while transitioning into outpatient therapy. Discharge Criteria: Client will have accomplished this goal when client's score on the DSM-5 cross-cutting measure has maintained or reduced over a 8 week period. Target Date: 03/22/22 Review Date: 02/22/22 Status: open Objective #2 Stated Objective: Client will learn and utilize 2-3 maintenance strategies to prevent decompensation from original IOP DSM-5 scores. Interventions: Through group therapy, client will be provided with education on healthy maintenance behaviors, relapse prevention techniques, and healthy coping strategies. Discharge Criteria: Client will have accomplished this goal when can report using at least 2 maintenance skills to prevent decompensation compared to original IOP DSM-5 scores Target Date: 03/22/22 Review Date: 02/22/22 Status: open
--- NOTE | 2022-02-01 14:00 | BH.SGPN.GN ---
Behaviors/Verbalizations/Mental Status: []Pt alert and oriented, casually dressed and groomed. Eye contact fair. Motor activity appropriate. Speech within normal limits. Affect constricted, mood content. Thoughts linear, logical, no signs of hallucinations or delusions. Client Response/Progress/Benefit: []Pt responded well to session AEB sharing and listening attentively to others. Pt has been consistent with her outpatient mental health appointments and medications. Pt reports using journaling, mindfulness, and check-ins to help with her mental health symptoms. Pt participated in group discussion defining affirmations and why they are important. Pt provided insight throughout clinician?s presentation of tips for writing personal affirmations. Pt wrote own affirmations, including ?progress not perfection.? Pt appeared to benefit from increased knowledge of affirmation writing and increased self-awareness. Will continue aftercare treatment to reinforce healthy coping skills and promote gains. ? Narrative Note: []
--- NOTE | 2022-02-08 14:00 | BH.SGPN.GN ---
Behaviors/Verbalizations/Mental Status: []Pt alert and oriented, casually dressed and groomed. Eye contact fair. Motor activity appropriate. Speech within normal limits. Affect congruent, mood anxious. Thoughts linear, logical, no signs of hallucinations or delusions. Client Response/Progress/Benefit: []Pt responded well to session, Pt reports she has been consistent with going to therapy, seeing her psychiatrist, and taking her medications.?Pt shared she noticed some warning signs of depression and used crafts, gratitude, and opposite action to cope. Pt shared ?I was really surprised how well it changed my mood.? Pt engaged well during the discussion of the components of self-compassion. Pt connected with the benefits of self-compassion and participated in the activity of reframing a recent setback using self-compassion. Pt used self-compassion to combat negative self-talk and self-judgement.?Pt appeared to benefit from practicing self-compassion and connecting with peers. Will continue aftercare to promote mood stability and reinforce healthy coping skills.? Narrative Note: []
--- NOTE | 2022-02-22 15:25 | BH.TPR ---
Treatment Plan Review Date of Admission:: 01/25/22 Date of Treatment Plan Review:: 02/22/22 Admitting Diagnoses:: Bipolar 2 disorder Current Diagnoses:: Bipolar 2 disorder Patient's Response to Treatment:: Pt responding well to treatment AEB pt's consistent attendance, active engagement in group discussions, follow up with outpatient providers, and reporting use of skills outside treatment environment. Pt utilizes IOP aftercare to process current stressors, practice giving herself credit for daily accomplishments, continue to work on self-compassion, and identify coping strategies. Status of Current Problems and Symptoms: Ongoing stressors include maintaining progress made in IOP, stress with continuing to struggle with problems in her apartment building and difficulties in resolving the conflict/advocating for her needs with the landlord, and trying to find additional social supports in her area. Pt self-reports she has moments of negative thinking and depression, but it is still manageable. Problem #1 Problem Name:: Pt will maintain or decrease symptoms from IOP admission data. Status of Goals:: Obj 1 - complete with ongoing work encouraged- Pt has been able to maintain gains made in IOP as pt?s DSM-5 scores are 78% lower than they were at IOP admission. 100% decrease in depressive symptoms and 33% decrease in anxiety when compared to IOP admission scores. Obj 2 - complete with ongoing work encouraged. Pt has been consistently reporting self-care, thought challenging, and using healthy coping skills. Team Recommendations:: Recommended client continue IOP aftercare group to show maintenance of progress. Will continue to encourage client to attend regular outpatient counseling and psychiatry appointments as well. Will continue to aid client in looking for additional social support resources in her area.
== END 2022-02-24 23:59 ==
LOC: BHOG 13:00
PROVIDERS: Referring Provider Psychiatry & Neurology Psychiatry; Visit Provider Psychiatry & Neurology Psychiatry
DX: F31.81 Bipolar II disorder (principal)
CPT/HCPCS: 90853

== ENCOUNTER 2022-02-27 07:26 | Outpatient (RCR) | payer OTHER, MEDICAID, SELFPAY ==
--- NOTE | 2022-03-01 14:00 | BH.SGPN.GN ---
Behaviors/Verbalizations/Mental Status: []Client alert and oriented, casual in appearance. Eye contact good.? Motor activity appropriate. Speech within normal limits. Affect congruent. Mood anxious and euthymic. Thoughts linear, logical, no signs of hallucinations or delusions Client Response/Progress/Benefit: []Pt responded well to session AEB providing input throughout and listening attentively to others. Pt reported she has appointments scheduled with her outpatient counselor tomorrow and psychiatrist next week. Reports she is taking his medications as prescribed. Identified using thought challenging and ?self-compassion to help with mental health maintenance over the past week. Noted successfully adjusting her mindset when frustrated as a result. Pt connected with self-reflection discussion and activity. Worked with group to identify the benefits of self-reflection. Seemed to benefit from identifying how to incorporate self-reflection more consistently into daily living. Identified a self-reflection goal of beginning to check-in with her self-talk and intentionally try to incorporate positive affirmations daily. Pt to continue aftercare to maintain gains and prevent decompensation. Narrative Note: []
--- NOTE | 2022-03-15 15:17 | BH.TPR ---
Treatment Plan Review Date of Admission:: 01/25/22 Date of Treatment Plan Review:: 03/15/22 Admitting Diagnoses:: Bipolar 2 disorder Current Diagnoses:: Bipolar 2 disorder Patient's Response to Treatment:: Pt continuing to respond well to treatment AEB pt's consistent attendance, active engagement in group discussions, and ongoing follow up with outpatient providers. Pt continues to report use of skills outside treatment environment and indicates ongoing improvements in ease and consistency of skill use. Pt continues to challenge herself to utilize IOP aftercare to process current stressors, acknowledging her personal growth and progress, continue to work on self-compassion, and further identify any additional coping strategies she can utilize to maintain gains made. Status of Current Problems and Symptoms: Ongoing stressors include maintaining progress, stress with continued housing issues though she does report improved ability to accept and manage these, ongoing physical health issues continuing to make completing daily tasks more difficult at times, and trying to find additional social supports in her area. Pt self-reports she has moments of negative thinking and unrealistic expectations of herself, but it is still manageable and she is continuing to progress in overall ability to address and cope with these. Problem #1 Problem Name:: Pt will maintain or decrease symptoms from IOP admission data. Status of Goals:: Obj 1 - complete with ongoing work encouraged- Pt has been able to maintain gains made in IOP per self-report, dsm scores not collected as pt scheduled to d/c on this date but group was cancelled, there pt to d/c in March instead. Obj 2 - complete with ongoing work encouraged. Pt has been consistently reporting self-care, grounding, reaching out to additional social support resources, thought challenging, and using healthy coping skills. Team Recommendations:: Recommended client continue IOP aftercare group to show maintenance of progress. Will continue to encourage client to attend regular outpatient counseling and psychiatry appointments as well.
== END 2022-03-27 23:59 ==
LOC: BHOG 07:26
PROVIDERS: Referring Provider Psychiatry & Neurology Psychiatry; Visit Provider Psychiatry & Neurology Psychiatry
DX: F31.81 Bipolar II disorder (principal)
CPT/HCPCS: 90853

== ENCOUNTER 2022-03-28 07:27 | Outpatient (RCR) | payer OTHER, MEDICAID, SELFPAY ==
--- NOTE | 2022-04-05 14:00 | BH.SGPN.GN ---
Behaviors/Verbalizations/Mental Status: []Client alert and oriented, casually dressed. Eye contact good. Motor activity appropriate. Speech within normal limits. Affect congruent, mood euthymic and anxious. Thoughts linear, logical, no signs of hallucinations or delusions. Client Response/Progress/Benefit: []Client receptive of session, engaged and providing supportive feedback throughout group. Reports feeling ?upset but trying to practice self-compassion? today as she has recently had several stressors which she felt more upset about that she had hoped, however, feels she is coping with these in healthy ways. Reports meeting consistently with outpatient therapist, sees psychiatry regularly, and is taking medication as prescribed. Identified skills she has been using as positive self-talk, going for regular walks, and maintaining a consistent yoga practice. Client engaged in the discussion about self-love and worked with the group to identify strategies for increasing self-love. Reports wanting to work on self-love by reminding herself to ?be mindful of what you think, feel, and want?. Seemed to benefit from reviewing treatment progress and strategies for managing current stressors, as well as learning about how to increase self-love. Client to discharge from treatment given progress and program completion. Will continue with individual outpatient counseling. Narrative Note: []
--- NOTE | 2022-04-12 08:32 | BH.DS ---
Discharge Summary - Demographics Date of Admission:: 01/25/22 Discharge Date: 04/12/22 Presenting Problems at Admission:: Client discharged from IOP tx and transitioned to IOP aftercare to maintain gains client made in IOP and to reinforce healthy coping skills. At admission to [facility] aftercare, client reported experiencing mild to moderate symptoms of anxiety, depression, and irritability. Client was reporting ongoing issues with prioritizing self-care, managing intrusive thoughts and grief associated with changes in physical ability, and consistently managing daily stressors. Ongoing difficulties in maintaining consistent with emotion regulation skills, self-compassion, as well as challenging distorted thought patterns. Discharge Diagnoses:: Bipolar 2 disorder Reason for Discharge:: Pt has completed the aftercare program and reports that she has met the maximum benefit of aftercare tx and will continue with outpatient counseling and psychiatry for ongoing maintenance. - Treatment Progress During Treatment & Response: Pt did well with attendance and engagement. Pt contributed well during individual sessions and group discussions, often providing insight and supportive feedback. Pt was able to challenge negative thinking more easily than before and pt reported increased consistency with their ability to manage anxiety and irritability related sx which is progress. Pt additionally reports improvements in her use of self-compassion. Issues Still to be Addressed:: Intrusive thoughts and ongoing issues with emotion regulation behaviors, negative core beliefs and self-talk, avoidance, ruminations, difficulty setting boundaries and communicating needs, and constantly feeling overwhelmed. Discharge Recommendations/Instructions:: Pt will follow up with her outpatient providers at [facility]. Pt sees Dr. Roca for medication management. Discharge Handout: Complete Discharge Handout with client on aftercare options and continuity of care.
== END 2022-04-06 07:03 | disposition home or self-care (01) ==
LOC: BHOG 07:27
PROVIDERS: Referring Provider Psychiatry & Neurology Psychiatry; Visit Provider Psychiatry & Neurology Psychiatry
DX: F31.81 Bipolar II disorder (principal)
CPT/HCPCS: 90853

== ENCOUNTER 2022-07-02 08:00 | Outpatient (RCR) | payer OTHER, MEDICAID, SELFPAY ==
--- NOTE | 2022-07-02 09:05 | BH.SGPN.GN ---
Behaviors/Verbalizations/Mental Status: [] Eye contact is poor. Motor activity is discheveled. Appearance is casual. Speech is Appropriate. Mood is depressed/anxious. Affect is flat. Thoughts are linear and logical. No evidence of psychosis Client Response/Progress/Benefit: [] Pt participated when prompted. Attentive. This was pt's first day in PHP. She briefly introduced herself to the group and reports that she entered PHP to improve her mood. She did not shared much. Group was empathetic and provided feedback and advice for her first day in PHP which was beneficial. Will continue in PHP to maintain safety, prevent decompensation/re-admissin to psych, and to improve functioning. Narrative Note: []
--- NOTE | 2022-07-02 10:15 | BH.SGPN.GN ---
Behaviors/Verbalizations/Mental Status: []Pt alert and oriented, disheveled appearance. Eye contact fair. Motor activity appropriate. Speech within normal limits. Affect flat, mood depressed Thoughts linear, logical, no signs of hallucinations or delusions. Client Response/Progress/Benefit: []Pt was an active participant in group discussions. Attentive during psychoeducation. Contributed during interactive discussions in which peers attempted to define crisis. Pt identified several examples of potential crisis. Group also worked together to identify unhealthy responses to crisis which included; isolation, self-harm, overuse of distraction, avoidance, and lashing out. Pt identified personal warning signs as lack of self-care, eating too much and staying in bed too long, and loss of motivation with increased negative thinking. Benefited from increased understanding of crisis and awareness of personal responses to crisis. Pt will continue PHP tx to prevent decompensation and rehospitalization. Narrative Note: []
--- NOTE | 2022-07-02 11:15 | BH.SGPN.GN ---
Behaviors/Verbalizations/Mental Status: []Client alert and oriented, casually dressed and groomed. Eye contact fair. Motor activity appropriate. Speech within normal limits. Affect congruent. Mood anxious and dysthymic. Thoughts linear, logical, no signs of hallucinations or delusions. Client Response/Progress/Benefit: []Client engaged throughout group session AEB providing contributions to discussion and working within the small groups. Client identified their personal warning signs for crisis and gained further awareness of earliest warning signs. Client created a crisis action plan to help client better manage personal crisis warning signs. Client shared an action plan for their warning sign of increased irritability which included: look back at her journal to remind herself she has felt positive on other days, talk to a positive support, use positive affirmations, and reach out to his providers for additional help. Client appeared to benefit from creating a crisis action plan and increasing self-awareness. Client to continue PHP tx to improve use of healthy coping skills, reduce depressive sx, and prevent decompensation. Narrative Note: []
--- NOTE | 2022-07-02 14:24 | BH.PSA ---
Suicide Assessment Treatment Plan Recommendations
--- NOTE | 2022-07-02 14:25 | BH.MTP_ITS ---
Master Treatment Plan - Patient Information Program Physician:: Dr. Tammie Fitzgerald Primary Therapist:: SHRUTHI Lua - Psychiatric Diagnoses Psychiatric Diagnoses:: 1. Bipolar 2 disorder (currently depression). 2. Generalized anxiety disorder. 3. Strong cluster B traits. 4. Anxiety about postconcussion syndrome Diagnosis Code(s):: F 31.81 - Estimated LOS Estimated LOS (in weeks):: 1 Problem/Goal #1 - Problem/Goal #1 Stated Goal:: Client will reduce overall frequency, intensity, and duration of the anxiety so that daily functioning is not impaired. Description of Barriers: Client states struggles with opening up to others about her thoughts and feelings which could be potential barrier to treatment. Additional potential barriers include: current change in living environment, distorted thoughts, limited social support, difficulty trusting others, post- concussion syndrome, and negative thoughts. Functional Impact: The patient is a 32-year-old single female with a history of bipolar 2 disorder who is known to the [facility] program as she completed our program on April 12, 2021. The patient was referred after being admitted to [facility] inpatient unit from June 15-2022 due to depression with a self-interrupted suicide attempt (by hanging) when the patient was premenstrual. Patient states that her symptoms worsened several months ago due to ongoing stressors. Current stressors included her apartment complex being torn down and having to move back in with her parents. In addition, pt reports believes that she was recently changed to generic Wellbutrin and added control and she feels that these changes made her get more depressed and suicidal. Pt also had a resurgence in post-concussion syndrome sx impacting ability to function as she was only able to isolate herself in a dark room in order to feel okay. Patient is not working and last worked in and is on disability for bipolar disorder. The patient has a history of cutting for self- harm and she last cut herself on June 15, 2022 but had not cut herself for a year prior to that. She endorses depressed mood, hopelessness, worthlessness, low energy, decreased concentration and passive, fleeting suicidal ideation about every other day. She denies plan for suicide, active suicidal ideation, homicidal ideation, hallucinations, delusions, current symptoms of elise, anhedonia, and guilt. She still enjoys going for walks and doing rajat chi. She is a worrier by nature but has not had any panic attacks since 2019. She denies also OCD, eating disorder, PTSD and is uncertain about trauma. - Objectives Objective #1 Stated Objective: Client will learn and implement 2-3 calming skills to reduce overall anxiety and manage anxiety symptoms. Interventions: Therapist and group sessions will help client identify physiological warning signs of anxiety, increase awareness of thoughts that increase anxiety, and identify behaviors that reinforce anxious symptoms. Group and individual counseling will teach client calming skills to help manage anxious symptoms. Discharge Criteria: Client will have achieved this goal when can verbalize at least 2 calming skills and reports skills successfully help reduce anxious symptoms. Target Date: 07/09/22 Problem/Goal #2 - Problem/Goal #2 Stated Goal:: Client will reduce depressive symptoms, feelings of worthlessness, and suicidal thoughts due to Bipolar 2 Disorder through Partial Hospitalization Program. Description of Barriers: Client states struggles with opening up to others about her thoughts and feelings which could be potential barrier to treatment. Additional potential barriers include: current change in living environment, distorted thoughts, limited social support, difficulty trusting others, post- concussion syndrome, and negative thoughts. Functional Impact: The patient is a 32-year-old single female with a history of bipolar 2 disorder who is known to the [facility] program as she completed our program on April 12, 2021. The patient was referred after being admitted to [facility] inpatient unit from June 15-2022 due to depression with a self-interrupted suicide attempt (by hanging) when the patient was premenstrual. Patient states that her symptoms worsened several months ago due to ongoing stressors. Current stressors included her apartment complex being torn down and having to move back in with her parents. In addition, pt reports believes that she was recently changed to generic Wellbutrin and added control and she feels that these changes made her get more depressed and suicida l. Pt also had a resurgence in post-concussion syndrome sx impacting ability to function as she was only able to isolate herself in a dark room in order to feel okay. Patient is not working and last worked in and is on disability for bipolar disorder. The patient has a history of cutting for self-harm and she last cut herself on June 15, 2022 but had not cut herself for a year prior to t hat. She endorses depressed mood, hopelessness, worthlessness, low energy, decreased concentration and passive, fleeting suicidal ideation about every other day. She denies plan for suicide, active suicidal ideation, homicidal ideation, hallucinations, delusions, current symptoms of elise, anhedonia, and guilt. She still enjoys going for walks and doing rajat chi. She is a worrier by nature but has not had any panic attacks since 2019. She denies also OCD, eating disorder, PTSD and is uncertain about trauma. - Objectives Objective #1 Stated Objective: Client will learn and utilize 2-3 healthy coping strategies to manage depressive symptoms and reduce SI and self-harming urges. Interventions: Therapist will utilize CBT techniques to assist client with understanding the connection between thoughts, feelings and behaviors. Education will be provided on behavioral activation. Therapist will assist client in learning internal coping strategies to manage depressive symptoms, along with helping client identify triggers. Client will learn and implement healthy alternative to self-harming behaviors. Discharge Criteria: Client will have achieved this goal when can verbalize and has practiced at least 2 healthy coping strategies that successfully manage depressive symptoms, reports reduced SI and self-harming urges. Target Date: 07/09/22
--- NOTE | 2022-07-02 14:25 | BH.MDN ---
Multi-Disciplinary Note - Note 45-min Individual Time Started:: 08:15 Date: 07/02/22 Purpose of session/treatment goals addressed:: Met with pt to build rapport, gather information on current sx/triggers leading to hospitalization, and to begin to work on treatment plan goals. Eye Contact:: Good Motor Activity:: Appropriate Appearance:: Casual Speech:: Appropriate Mood:: Anxious, Depressed Affect:: Constricted Thoughts:: Linear, Logical, No evidence of hallucinations/delusions noted Staff Interventions:: motivational interviewing, psychoeducation on: - negative core beliefs, rapport building, strengths perspective, treatment planning, completed risk assessment / safety planning, goal setting Client Response:: Pt receptive of session and willing to arrive early to meet with therapist prior to groups for the day. Discussed some feelings of anxiety and embarrassment regarding the need for hospitalization. Appeared to benefit from discussion normalizing pt feelings and the need for additional mental health help at various times throughout life, especially when faced with unexpected stressors. Expressed relief and discussed that although it was uncomfortable, she is glad she made the decision to seek a higher level of care. Pt shared she has been struggling to identify concrete triggers for her recent self-interrupted suicide attempt via hanging and psychiatric admission from 06/15/22 ? 06/21/22 at [facility]. Shared that she feels her symptoms of anger/irritability, depression, and bitterness increase significantly around the time of her menstrual cycle and would like to discuss this further with program psychiatrist. Upon further discussion, pt did identify current stressors to include feeling helpless and insecure about her current circumstances in life. Shared struggling with shame and embarrassment surrounding living with her parents, being unemployed, and struggling with acceptance of her mental health diagnosis. Reports thoughts of ?not contributing enough? and feeling worthless. Pt noted that she has been trying to practice self-compassion and gratitude when these thoughts arise, as well as engage in activities she enjoys. Insight that she rationally knows she is doing the best she can and that other people are in similar situations, however reports struggling with unrealistic or unfair expectations of herself. Appeared to connect with discussion on negative core beliefs reports wanting to work more on identifying and replacing her own negative core belief patterns. Additionally shared a resurgence of post-concussion symptoms which has further reduced her ability to engage in activities she enjoys as well as increased irritability. Pt stated goals for treatment are to get back into more consistently utilizing healthy coping skills, to increase socialization skills, reduce self-harm urges, and continue to improve her relationship with herself. Pt identified coping skills she has found effective as journaling, going for walks, yoga and Jeramie Chi, reading, positive affirmations, and spending time with supports. Wants to get back involved with these activities as well as improve her ability to make new connections with others. Risks/Concerns:: Denies active suicidal ideations, plan, or intent. Future-oriented. Reports ability to maintain safety and shared she will be spending the afternoon with her family which are protective factors. Long-standing fleeting SI for the past 2-3 months with most recent ideation occurring prior to hospitalization. Shared increased SI up to 10 days before her menstrual cycle and will work with therapist to complete a safety plan for this timeframe. For additional risk information please see communication note for this date. Progress Toward Goals/Plan:: Limited progress noted as this was pt's first day in tx. She presents as motivated to engage in both individual and group therapy. Feeling she is lacking a sense of direction, recent change in housing, resurgence of post-concussion syndrome sx, and managing her emotions surrounding her menstrual cycle are currently a stressor. She has been able to begin taking small steps in these areas and is actively getting back into her journaling, mindfulness, and self-compassion practices. Able to identify healthy coping skills however struggles to utilize when overwhelmed, angry, or helpless. Rommel continue in tx to prevent decompensation/prevent re-admission to psych unit, increase healthy coping, and to maintain safety. Time Stopped:: 09:00
--- NOTE | 2022-07-02 14:27 | BH.COMM ---
Communication Note - Communication with Client Communication Note: Met with pt to complete initial paperwork. Pt admitted inpatient at [facility] for suicidal ideation with an interrupted attempt via hanging herself which is new since pre-admission screening. Pt hospitalized from 06/15/22-06/21/22. Completed [facility] with moderate-high risk. Endorses passive wishes of within the last 2 weeks, with a recent hospitalization on 06/15/22-06/21/22 in which pt had attempted suicide by hanging herself with her belt. Pt reports chronic passive SI, last occurring prior to hospitalization. Shared these thoughts are worse around the time of menstrual cycle. Pt denies any current active SI, plan, or intent today. Does have a history of SI in her lifetime with 1 suicide attempt in 2009 and several self-interrupted overall. Reports multiple methods including cutting her wrist, walking infront of a train, hanging, and overdosing on medication. Does not have access to weapons or stockpiles of medication. Reports checking in with a support daily. Does not present as imminent danger to herself due to no active SI, plan, intent, or access to leathal means. Future-oriented. Reports hx of self-harming behaviors via cutting, which last occurred prior to inpatient hospitalization. Future oriented and reports her familt are primary protective factors. Pt to be admitted to [facility] level of care under diagnosis of Bipolar II Disorder, F31.81
--- NOTE | 2022-07-03 09:05 | BH.SGPN.GN ---
Behaviors/Verbalizations/Mental Status: [] Eye contact is poor. Motor activity is appropriate. Appearance is casual. Speech is Appropriate. Mood is depressed. Affect is congruent. Thoughts are linear and logical. No evidence of psychosis. Client Response/Progress/Benefit: [] Pt participated when prompted. Attentive. Mental health win was that she ?reached out? to people. Understands that communicating her thoughts and feelings is beneficial. Insight on the benefits of being vulnerable with others. She reports that she is working on accepting her mental health diagnosis and not blaming herself. She often believes that her mental illness is the result of her not trying hard enough. The group emphasized and provided feedback and support which was beneficial. Will continue in [facility] to maintain safety, prevent decompensation/re-admission, and to improve coping skills. Narrative Note: []
--- NOTE | 2022-07-03 15:08 | BH.MDN ---
Multi-Disciplinary Note - Note 60-min Individual Time Started:: 11:10 Date: 07/03/22 Purpose of session/treatment goals addressed:: The check-in with pt as she reported increased post-concussion sx during group and asked to lie down, worked to develop small self-care goals for the day. Additionally, reviewed negative core belief homework and discussed strategies for creating more balanced beliefs. Eye Contact:: Fair Motor Activity:: Appropriate Appearance:: Casual Speech:: Appropriate Mood:: Anxious, Depressed Affect:: Congruent Thoughts:: Linear, Logical, No evidence of hallucinations/delusions noted Staff Interventions:: thought challenging, motivational interviewing, psychoeducation on: - negative core beliefs, CBT techniques, strengths perspective, goal setting, taught coping skills - worked to challenge and replace negative core beliefs with healthier more balanced beliefs. Client Response:: Pt receptive of session and initially spent session laying on counch in therapist office due to ongoing physical symptoms related to her post-concussion syndrome. Pt noted that since she had a nurse touch her head to take her temperature while inpatient her post-concussion symptoms have intensified. Reported frustration and fear as her symptoms are often unpredictable and prevent pt from being able to engage in daily activities in a way she would like to. Shared a story of experiencing unexpected post-concussion symptoms while attending an outdoor jainism service she had never been to before. Described becoming confused and unsteady which led to pt receiving help from individuals she had never met and resulted in her feeling vulnerable and embarrassed. Shared trying to ?be more positive and accepting? of her change in physical ability but continues to struggle with anxiety and anger about it. Reports she has done better to advocate more actively for herself and ask for accommodation. Indicating this has been a process as she feels like a ?burden? or ?weak? for doing so at times. Reported experiencing a lot of ?shame? and ?embarrassment? surrounding her current state in life, sharing that this likely goes back to her negative core beliefs as discussed in previous session. Pt and therapist spent remainder of session reviewing pt?s negative core beliefs assessment given for homework. Pt identified core beliefs of ?My worth is dependent on my performance or achievements.?, ?I have to be perfect? or ?It?s not okay to make mistakes.?. Pt processed with therapist and identified these beliefs likely stem from learning from a young age that doing well in school or being talented was rewarded. Shared going through life with very high expectations of herself and what success looks like. Reports this has made it difficult to accept and express self-compassion for herself and where she is currently at in life. Identified that she would not expect more of anyone else in her situation but has always struggled with feeling she is ?weak? or ?broken? for struggling with her mental health and not going to college or currently working. Shared ?I need to 4learn how to give myself credit for doing the best I can?. Receptive of discussion gently challenging the negative core beliefs she identified and creating beliefs that contradict those belief using pt personal values and a self-compassionate approach. Identified ways she can begin to take steps to model her values of kindness, integrity, and authenticity in her own life. Created a goal to begin daily positive affirmations and starting an accomplishment log to begin focusing on what she is doing rather than what she has not accomplished. Risks/Concerns:: Denies active suicidal ideations, plan, or intent as of this date 07/03/22. Future-oriented. Denies any self-harming behaviors since prior to hospital d/c. Progress Toward Goals/Plan:: Some progress noted as pt reports no suicidal ideation since hospitalization and reduced feelings of hopelessness and helplessness. Reports an overall improved sense of hope. Pt receptive of taking time to begin addressing negative core beliefs as well. Continues to report depression and difficulties accepting her diagnoses and physical limitations, guilt, anxiety, and irritability. Pt will continue in [facility] tx to prevent decompensation/prevent re-admission to psych unit, increase self-confidence and healthy coping, and to maintain safety. Time Stopped:: 12:05
--- NOTE | 2022-07-04 07:59 | BH.COMM ---
Communication Note - Communication with Client Communication Note: Pt cancelled PHP this AM due to illness. She was scheduled to meet with psychiatry today for initial assessment. Due to the acuity of her symptoms she will remain in PHP (recent psych admission for SI with plan last week). She was discharged from psych unit last week and has been evaluated by psychiatry in the past 30 days.
--- NOTE | 2022-07-05 09:01 | BH.SGPN.GN ---
Behaviors/Verbalizations/Mental Status: []Pt alert and oriented, casually dressed and groomed. Eye contact poor. Motor activity appropriate. Speech within normal limits. Affect constricted, mood depressed and anxious. Thoughts linear, logical, no signs of hallucinations or delusions. Reviewed pt?s symptom tracker, no risk for suicidal ideation, plan, or intent. Client Response/Progress/Benefit: []Pt responded well to session, attentive and receptive to feedback. Client shared mental positive as continuing to come to treatment despite feeling a bit burned out with therapy recently. Client shared she realizes she needs to come here because healthy and helpful. Client reported additional mental positive as starting to journal with a focus of being kind to herself. Client stated in counseling she has come to realize with the help of the therapist that she tends to speak negatively toward herself and is trying to counteract that with her journaling. Client stated she did not want to discuss her current stressor at this time. Seemed to benefit from support from peers. Pt will continue PHP tx to increase healthy coping skills, challenge negative thinking, and prevent decompensation.
--- NOTE | 2022-07-05 10:10 | BH.SGPN.GN ---
Behaviors/Verbalizations/Mental Status: [] Eye contact is poor. Motor activity is appropriate. Appearance is casual. Speech is Appropriate. Mood is anxious/depressed. Affect is congruent. Thoughts are linear and logical. No evidence of psychosis. Client Response/Progress/Benefit: [] Pt did not participate in group discussion or experiential activity. Attentive during psychoeducation on stages of change AEB note-taking. Interactive group discussion in which she was attentive on why change is difficult in which group verbalized that change involves the unknown, is scary, leads to uncertainly, makes one feel vulnerable, leads to fear of failure, and challenges one's comfort zone. Pt states change is exciting. Group discussion on how emotions such as loneliness, confusion, happy, frightened, hopeful, and guilt impact or prevent change. Benefited from increased awareness of stages of changes and how emotions impact change. Will continue in IOP to prevent decompensation/re-admission to psych unit, maintain safety, and to improve functioning. She reported to this therapist after group that she was have 'post-concussive symptoms and was hoping to lie down on couch in quiet area. Accommodations were made. Resurgence of post-concussive symptoms have been an obstacle to mental health treatment this week. Narrative Note: []
--- NOTE | 2022-07-05 10:46 | BH.MDN ---
Multi-Disciplinary Note - Note 45-min Individual Time Started:: 08:03 Date: 07/05/22 Purpose of session/treatment goals addressed:: The purpose of this session was to address tx plan goal #1 and continue to work with pt on small selfcare and compassion goals. Eye Contact:: Good Motor Activity:: Appropriate Appearance:: Casual Speech:: Appropriate Mood:: Anxious, Dysthymic Affect:: Congruent Thoughts:: Linear, Logical, Other - at times appearing distracted or struggling with concentration which may be associated with increase in post-concussion sx, No evidence of hallucinations/delusions noted Staff Interventions:: thought challenging, motivational interviewing, psychoeducation on: - self-compassion, strengths perspective, taught coping skills - loving-kindness self-compassion Client Response:: Pt receptive of session, willing to engage and openly discuss current sx and stressors with therapist. At times pt appeared to struggle with focus which may be related to increased post-concussion symptoms. Pt did not attend PHP tx the previous date due to these symptoms and reports she is ?still not feeling great? this morning. Shared trying to practice self-care and balance resting with appropriate movement/tasks throughout the day yesterday. Reports this has been somewhat difficult as she is still adjusting to living with her parents and being in a different environment, which has changed what self-care can look like for her. Noted difficulties tuning out environmental noises to rest which pt believes may be why she still isn?t feeling great today. Did well however to identify several self-care activities she did complete, such as: listening to sermons, journaling, playing with the family dog, and spending time with her dad. Shared struggling however to complete several of the self-care goals she had previously been doing prior to hospitalization. Identified wanting to get back to regular exercise and more consistent with her personal hygiene. Reviewed small steps to begin working towards this which included hanging up her habit tracker sheets and creating an outline of her day. Expressed she successfully completed her 3 goals from previous session: to identify when she handles something in a more positive/empathetic way, do or say something kind to herself, and speak to herself in a way shed speak with others. Expressed accomplishing these through her journaling, noting embarrassment and shame regarding the content of her journal entry. Pt disclosed using her writing to practice being kind to herself about feels she has for a friend who is . Reports taking a loving/kindness approach was helpful, but she is still struggling with feeling her emotions are ?wrong? or morally ?bad?. Receptive of reviewing a self-compassionate approach via taking a non-judgmental acceptance and common humanity approach. Able to recognize she did not choose her emotions/feelings and is likely not the first person to have feelings for someone unavailable. Reflected that feeling safe and comfortable with this person is a possible factor influencing these emotions. Did well to identify that how she chooses to respond to her emotions and thoughts is more important and has a greater potential impact. Reports wanting to take a common humanity approach to herself/her emotions more often. Risks/Concerns:: Denies active suicidal ideations, plan, or intent as of this date 07/05/22. Future-oriented. Denies any self-harming behaviors since prior to hospital d/c. Progress Toward Goals/Plan:: Progress noted as pt continues to report reduction in suicidal ideation and depressive sx. She has been making progress in increased use of self-compassion and engaging in self-care activities, but reports a desire to continue to grow in these areas. Reports not engaging in physical activities such as yoga and Tia Chi as much as she would like or being as consistent with her personal hygiene self-care. Pt reports doing well to use positive self-talk and encouragement when struggling with focusing on what she is not doing, but continues to report shame and difficulties accepting her limitations at times. Pt overall sx are improving and she is reporting more daily enjoyment; however, continued PHP tx recommended to maintain safety and stability, continue to promote self-care, and reduce overall symptom severity. Time Stopped:: 08:53
--- NOTE | 2022-07-06 11:29 | BH.COMM ---
Communication Note - Communication with Client Communication Note: Pt called to cancel PHP group and individual sessions scheduled for this date due to illness. Pt has struggled significantly with being able to fully engage in the tx process due to ongoing physical limitations related to her post-concussion syndrome. Since beginning PHP tx on Saturday, Pt has left group twice due to physical symptoms and called to cancel twice. This presents a concern for pt ability to make progress and get the full treatment benefit. Therapist contacted pt outpatient individual therapist to discuss concerns further and is awaiting a return call.
--- NOTE | 2022-07-11 09:00 | BH.SGPN.GN ---
Behaviors/Verbalizations/Mental Status: []Pt alert and oriented, casually dressed and groomed. Eye contact fair. Motor activity WNL. Speech within normal limits. Affect constricted, mood anxious. Thoughts linear, logical, no signs of hallucinations or delusions. Reviewed pt?s symptom tracker and pt reports 1/5, with 5 being severe, for suicidal ideation and a 0/5 for suicidal intention. Pt does not appear imminent risk to harm self or others. Will be meeting with [facility] psychiatrist today. Client Response/Progress/Benefit: []Client responded well to session AEB listening attentively to peers and sharing thoughts and feelings. Client reported mental health positive as recognizing how well she handled being given a 30 days notice to move out of her apartment after living there for seven years. Client stated it was a shock to be given such a short notice but realizes she did well with communicating to the landlord and managing her emotions. Client stated additional positive is going to support group yesterday in which she felt comfortable and enjoyed it. Client noted current stressors adjusting to moving. Client seemed to benefit from support from peers. Will continue IOP tx to Increase consistent use of healthy coping skills, increase confidence, and prevent decompensation. Narrative Note: []
--- NOTE | 2022-07-11 09:36 | BH.DS_ITS ---
Discharge Summary - Demographics Date of Admission:: 07/02/22 Discharge Date: 07/11/22 Presenting Problems at Admission:: The patient is a 32-year-old single female with a history of bipolar 2 disorder who is known to the [facility] program as she completed our program on April 12, 2021. The patient was referred after being admitted to [facility] inpatient unit from June 15-2022 due to depression with a self-interrupted suicide attempt (by hanging) when the patient was premenstrual. Patient states that her symptoms worsened several months ago due to ongoing stressors. Current stressors included her apartment complex being torn down and having to move back in with her parents. In addition, pt reports believes that she was recently changed to generic Wellbutrin and added control and she feels that these changes made her get more depressed and suicidal. Pt also had a resurgence in post-concussion syndrome sx impacting ability to function as she was only able to isolate herself in a dark room in order to feel okay. Patient is not working and last worked in and is on disability for bipolar disorder. The patient has a history of cutting for self-harm and she last cut herself on June 15, 2022 but had not cut herself for a year prior to that. She endorses depressed mood, hopelessness, worthlessness, low energy, decreased concentration and passive, fleeting suicidal ideation about every other day. She denies plan for suicide, active suicidal ideation, homicidal ideation, hallucinations, delusions, current symptoms of elise, anhedonia, and guilt. She still enjoys going for walks and doing rajat chi. She is a worrier by nature but has not had any panic attacks since 2019. She denies also OCD, eating disorder, PTSD and is uncertain about trauma. Discharge Diagnoses:: 1. Bipolar 2 disorder (currently depression). 2. Generalized anxiety disorder. 3. Strong cluster B traits. 4. Anxiety about postconcussion syndrome Reason for Discharge:: Client has made progress while in PHP as shown by her report of no suicidal thoughts and report of using coping skills when experiencing triggers or feeling emotionally overwhelmed. Client additionally has been unable to attend daily as is recommended for [facility] level due to physical health issues and would be a more appropriate fit for [facility] level of care at this time. Client to step down to [facility] level of care to promote mood stability, improve functioning, and further reduce symptoms. - Treatment Progress During Treatment & Response: Client responded well to PHP treatment as she was an attentive participant in both group and individual sessions. Client did struggle with several physical health issues related to her post concussion syndrome which impeded tx participation and attendance throughout PHP tx. Client missed 4 of the 8 php day she was scheduled for. Client was consistent with completing homework and reported more actively using healthy coping skills and self-compassion outside of group in the past few days. Client continues to express motivation to improve her mental health and reduce reliance on unhealthy coping behaviors. Client was receptive to learning new skills, increasing self- awareness into warning signs and triggers, gaining insight into her mistaken beliefs and begin implementing increased self-compassion to begin creating healthier beliefs for herself and her view of the world. Client has demonstrated progress during PHP as client reports no longer experiencing active suicidal ideations, reduction in depressive symptoms, increased self-awareness, some improvement in mood symptoms, and some improvement in ability to challenge negative thoughts. Client has been practicing working on self-compassion and acceptance of her mental health and physical health diagnoses. Issues Still to be Addressed:: Client can continue to benefit from utilizing coping skills learned to manage warning signs and triggers for anxiety and depression. Client would like to continue to work on reducing increasing distress tolerance skills for during her menstrual period, decreasing negative thoughts of self, healthy boundaries, and improving independent coping skill application. Client can benefit from ongoing work on emotion regulation skills, communication with supports, and reinforcing healthy coping skills. Lastly, client can benefit from IOP level of care to promote gains made in PHP and improve daily functioning. Discharge Recommendations/Instructions:: Recommended to step down to IOP level of care to maintain gains, promote daily functioning, and further stabilize mood. Client reports reduced intensity of symptoms as well as improvement with utilizing coping skills. Client would benefit from IOP to continue working on treatment goals, improve confidence in symptom management, and further increase mood stability. Discharge Handout: Complete Discharge Handout with client on aftercare options and continuity of care.
--- NOTE | 2022-07-11 09:36 | BH.MDN_ITS ---
Multi-Disciplinary Note - Note 45-min Individual Time Started:: 12:10 Date: 07/11/22 Purpose of session/treatment goals addressed:: To work on goal #2 of pt tx plan Eye Contact:: Good Motor Activity:: Appropriate Appearance:: Casual Speech:: Appropriate Mood:: Anxious, Dysthymic Affect:: Congruent Thoughts:: Linear, Logical, No evidence of hallucinations/delusions noted Staff Interventions:: motivational interviewing, psychoeducation on: - communication and social skills, began discussion on healthy boundaries, CBT techniques, strengths perspective, other - created several topics pt can refer to for small talk in social situations Client Response:: Pt responded well to session, open to meeting with therapist. Pt shared she has been able to see improvements in her ability to manage her physical health sx over the past week and feels more confident in her overall ability to engage in tx activities as a result. Shared she is glad to have stepped down to the [facility] level of care as she would like to engage in more activi ties in her community now as well. Discussed plans to ease back into [employer] classes and recently attended a [employer] support group in her area. Pt shared that she had enjoyed the group the first time she attended; however, felt uncomfortable upon returning for a second time. Provided insight that she had struggled to adjust to a change in group participants. Reports expecting it to be a female only atmosphere and was caught off guard by the presence of a male participant. Shared feeling less comfortable sharing and found herself experiencing more automatic negative thoughts as a result. Able to identify that unexpected changes and new people can be triggering for her; however, shared wanting to work on this as well as improve her ability to better communicate in social interactions. Identified struggling with ?small talk? and not knowing how to respond to unsolicited advice or comments from fellow participants. Receptive of discussion reviewing ?safe? or neutral conversation starters and pt shared plans to write down a few general small talk ideas to refer to if feeling anxious or unsure of what to say. Went on to review strategies for responding to unsolicited advice without creating conflict or offending the other person. Pt identified that just because someone gives her advice does not mean she has to adhere to or agree with it. Identified several responses she could potentially give in these situations. Pt additionally shared wanting to review healthy emotional boundaries and appropriate disclosure in social settings. Pt was provided with a handout on healthy boundaries for homework and will review with therapist in next session. Risks/Concerns:: Pt denies any active suicidal ideations, plan, or intent as of this date. Pt is future oriented. No access to weapons. Progress Toward Goals/Plan:: Pt reports recent progress with less intensity of overall mental and physical health sx. Pt stated she continues to feel anxious in social settings and at times struggles with negative thoughts about herself and her place in the world/accomplishments; however, is doing better to challenge these thoughts and give herself more credit. Reports doing better to manage her sx during her menstrual cycle which has been an ongoing concern as well. Pt reports recently getting back into local support groups and plans to return to her regular [employer] practice. Pt's mood is still depressed, but pt is actively taking steps to address her depression. Pt is receptive to working on healthy boundaries and social skills to expand pt support network. Pt will continue IOP tx to prevent decompensation, increase consistent application of skills, and improve ability to manage anxiety. Time Stopped:: 12:50
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
--- NOTE | 2022-07-11 11:12 | BH.SGPN.GN ---
Behaviors/Verbalizations/Mental Status: []Eye contact is good. Motor activity is appropriate. Appearance is casual. Speech is WNL. Mood is anxious and dysthymic. Affect is congruent. Thoughts are linear and logical. No evidence of psychosis. Client Response/Progress/Benefit: []Pt engaged participant AEB providing input during small group discussion and engaging in activity. Activity involved working with peers to answer questions related to psychoeducation on cognitive distortions and practicing reframing distorted thoughts. Pt collaborated with the group to determine the answers. Identified cognitive distortions pt personally struggles with the most as emotional reasoning, mental filter, and all or nothing thinking. Able to identify the impact distortions has on pt?s mental health. Benefited from rehearsing ways to challenge/reframe cognitive distortions and by gaining increased insight into examples/definitions of 10 most common cognitive distortions. Will d/c from PHP tx and continue in IOP to improve emotion regulation, challenge negative perspective, and prevent decompensation. Narrative Note: []
[2022-07-11 11:49] VITALS: BP 134/85; PULSE 79
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
--- NOTE | 2022-07-11 12:25 | BH.DR.ITP ---
Initial Treatment Plan Patient Information Visit Information: ADMISSION DATE: EXPECTED LOS: 4-6 weeks Problems/Symptoms Problem #1:: Depression Symptom:: Sadness, hopelessness, worthlessness, low energy, decreased concentration, passive, fleeting suicidal ideation, biological disruption of sleep Problem #2:: Anxiety Symptom:: Worry, rumination, avoidance
--- NOTE | 2022-07-11 12:26 | BH.DR.ITP ---
Initial Treatment Plan Patient Information Visit Information: ADMISSION DATE: EXPECTED LOS: 4-6 weeks
== END 2022-07-11 14:56 | disposition home or self-care (01) ==
LOC: BHPHP 08:00
PROVIDERS: Referring Provider Psychiatry & Neurology Psychiatry; Visit Provider Psychiatry & Neurology Psychiatry
DX: F31.81 Bipolar II disorder (principal); F41.1 Generalized anxiety disorder; Z91.51 Personal history of suicidal behavior
CPT/HCPCS: H0035; 90834; 90837; G0410

== ENCOUNTER 2022-07-13 09:17 | Outpatient (RCR) | payer OTHER, MEDICAID, SELFPAY ==
--- NOTE | 2022-07-13 09:05 | BH.SGPN.GN ---
Behaviors/Verbalizations/Mental Status: []Pt alert and oriented, casually dressed and groomed. Eye contact fair. Motor activity appropriate. Speech within normal limits. Affect constricted, mood depressed. Thoughts linear, logical, no signs of hallucinations or delusions. Reviewed pt?s symptom tracker, no risk for suicidal ideation, plan, or intent as of 07/13/22 Client Response/Progress/Benefit: []Pt responded well to session, attentive and engaged. Pt reports feeling fatigued this morning due to her post concussion syndrome. Pt also is noticing more negative thought patterns recently as well which pt thinks could be from the post concussion syndrome. Pt's mental health wins today include journaling to try and challenge perspective, going for walks, and trying to practice self-compassion. Pt receptive to feedback on challenging negative thoughts. Pt appeared to benefit from peer feedback and social connection. Pt will continue IOP tx to prevent decompensation, combat distortions, and improve daily functioning. Narrative Note: []
--- NOTE | 2022-07-13 09:45 | BH.MTP_ITS ---
Master Treatment Plan - Patient Information Program Physician:: Dr. Tammie Fitzgerald Primary Therapist:: SHRUTHI Lua - Psychiatric Diagnoses Psychiatric Diagnoses:: 1. Bipolar 2 disorder (currently depression). 2. Generalized anxiety disorder. 3. Strong cluster B traits. 4. Anxiety over postconcussion syndrome Diagnosis Code(s):: F 31.81 - Estimated LOS Estimated LOS (in weeks):: 6 Problem/Goal #1 - Problem/Goal #1 Stated Goal:: Client will reduce depressive symptoms, worthlessness and guilt, and hopelessness due to Bipolar 2 disorder. Description of Barriers: Client states struggles with opening up to others about her thoughts and feelings which could be potential barrier to treatment. Additional potential barriers include: current change in living environment, distorted thoughts, limited social support, difficulty trusting others, post- concussion syndrome, and negative thoughts. Functional Impact: The patient is a 32-year-old single female with a history of bipolar 2 disorder who is known to the [facility] program as she completed our program on April 12, 2021. The patient was referred for [facility] level of care after being admitted to [facility] inpatient unit from June 15-2022 due to depression with a self-interrupted suicide attempt (by hanging) when the patient was premenstrual, which she believes worsened her sx. She does continue to endorse passive SI, but is able to manage these thoughts and notes reduction in severity and frequency. Denies any active SI, plan, or intent. Client completed 1 weeks of PHP and did well with improving ability to utilize coping skills, manage post-concussion sx, practice more consistent self- care and self-compassionate self-talk, as well as continue to work on communicating more openly with supports which has resulted in symptom reduction. Client does however continue to report issues with guilt, worthlessness, depressive sx, social anxiety and difficulties making connections with others, difficulties applying independent coping skills, mood swings, and anxiety. Client?s functioning is improving, but it is still not at her baseline, therefore resulting in client transitioning to the [facility] level of care. Goal Relevant Strengths/Supports: Pt is open to giving tx a try, open and willing to share in individual session and is getting more comfortable within the group environment, appears to have some insight into barriers maintaining current mental health sx, pt is resilient - Objectives Objective #1 Stated Objective: Client will learn and utilize 2-3 healthy coping strategies to better manage depressive symptoms as shown by a reduced DSM-5 scores for depression. Interventions: Through group and individual sessions, therapist will help client identify triggers and warning signs of depression and emotional dysregulation including emotional, physical, and behavioral changes. Therapist will teach client various coping skills to manage her symptoms and give client tangible resources to use to regulate emotions. Therapist will use cognitive restructuring techniques and help client gain awareness of negative thoughts that reinforce guilt and depression. Therapist will provide psychoeducation on maintenance cycles and help client learn ways to break unhealthy maintenance cycles. Therapist will help client incorporate behavioral activation and assist client in setting SMART goals. Discharge Criteria: Client will have met this goal when he can report learning and using at least 2 coping skills to manage depressive symptoms. Additionally, client will have met this goal when his depressive symptoms have reduced on the DSM-5 scale. Target Date: 08/17/22 Review Date: 07/25/22 Objective #2 Stated Objective: Client will reduce depression and feelings of being hopelessness by accomplishing and giving herself credit for accomplishing 1-2 small goals a week. Interventions: Through group and individual sessions, client will learn how to set small SMART goals to promote mood stability. Therapist will teach client the different kinds of self-care as well as the benefits of self-care. Therapist will help client problem-solve barriers and identify ways to increase accountability. Therapist will provide psychoeducation on the importance of recognizing one's accomplishments and identify strategies for improving pt ability to acknowledge her accomplishments. Discharge Criteria: Client will have accomplished this goal when can report accomplishing at least one small goal a week and give herself credit for these accomplishments. Target Date: 08/17/22 Review Date: 07/25/22 Problem/Goal #2 - Problem/Goal #2 Stated Goal:: Client will reduce anxiety and rumination while increasing ability to function on daily basis. Description of Barriers: Client states struggles with opening up to others about her thoughts and feelings which could be potential barrier to treatment. Additional potential barriers include: current change in living environment, distorted thoughts, limited social support, difficulty trusting others, post- concussion syndrome, and negative thoughts. Functional Impact: The patient is a 32-year-old single female with a history of bipolar 2 disorder who is known to the [facility] program as she completed our program on April 12, 2021. The patient was referred for [facility] level of care after being admitted to [facility] inpatient unit from June 15-2022 due to depression with a self-interrupted suicide attempt (by hanging) when the patient was premenstrual, which she believes worsened her sx. She does continue to endorse passive SI, but is able to manage these thoughts and notes reduction in severity and frequency. Denies any active SI, plan, or intent. Client completed 1 weeks of PHP and did well with improving ability to utilize coping skills, manage post-concussion sx, practice more consistent self- care and self-compassionate self-talk, as well as continue to work on communicating more openly with supports which has resulted in symptom reduction. Client does however continue to report issues with guilt, worthlessness, depressive sx, social anxiety and difficulties making connections with others, difficulties applying independent coping skills, mood swings, and anxiety. Client?s functioning is improving, but it is still not at her baseline, therefore resulting in client transitioning to the [facility] level of care. Goal Relevant Strengths/Supports: Pt is open to giving tx a try, open and willing to share in individual session and is getting more comfortable within the group environment, appears to have some insight into barriers maintaining current mental health sx, pt is resilient - Objectives Objective #1 Stated Objective: Client will identify 2-3 anxiety triggers and 2 coping skills to use when feeling anxious to manage anxiety as shown by decreasing her DSM-5 scores for anxiety. Interventions: Therapist will provide education on anxiety, avoidance behaviors, and maintenance cycles. Therapist will help client explore personal symptoms and warning signs of anxiety. Therapist will teach client coping skills to improve emotional regulation, mindfulness, and distress tolerance to help client cope with anxiety in the moment. Discharge Criteria: Client will have accomplished this goal when she can identify at least 2 triggers and report using 2 coping skills to manage anxiety. Additionally, client will have accomplished this goal when her DSM-5 scores show a reduction in symptoms. Target Date: 08/17/22 Review Date: 07/25/22 Objective #2 Stated Objective: Client will identify 2-3 cognitive distortions that lead to rumination and learn 2-3 ways to challenge these thoughts to better manage anxiety as shown by reduced DSM-5 scores for anxiety. Interventions: Therapist will provide education on the most common cognitive distortions and teach client the connection between thoughts, emotions, and feelings. Therapist will assist client in identifying, challenging, and replacing dysfunctional thoughts with positive, more realistic and self- compassionate thoughts. Discharge Criteria: Pt will be able to identify and replace or reframe distortions on a consistent basis. Target Date: 08/17/22 Review Date: 07/25/22
--- NOTE | 2022-07-13 10:15 | BH.SGPN.GN ---
Behaviors/Verbalizations/Mental Status: []Pt alert and oriented, neatly dressed and groomed. Eye contact good. Motor activity appropriate. Speech within normal limits. Affect constricted, mood depressed. Thoughts linear, logical, no signs of hallucinations or delusions. Client Response/Progress/Benefit: []Pt was sometimes an active participant in group discussions and activities. Attentive during psychoeducation. Pt engaged during interactive discussion in which the group defined self-care and discussed its benefits. ?Worked with peers in a small group to identify myths related to self-care. Pt identified personal barrier of feeling like self-care is not productive and that she does not deserve it which prevents pt from practicing self-care. Pt participated in small groups where they worked to bust these self-care myths. Benefited from increased awareness of self-care, its benefits, and the consequences of not utilizing self-care strategies. Will continue IOP tx to prevent decompensation, improve daily functioning, and increase emotional regulation skills. Narrative Note: []
--- NOTE | 2022-07-13 11:10 | BH.SGPN.GN ---
Behaviors/Verbalizations/Mental Status: []Pt alert and oriented, casually dressed and groomed. Eye contact fair to good. Motor activity appropriate. Speech within normal limits. Affect constricted, mood anxious. Thoughts linear, logical, no signs of hallucinations or delusions. Client Response/Progress/Benefit: []Pt engaged participant AEB providing input at times and listening attentively to others. Participated in group discussion on the various areas of self-care. Pt completed worksheet identifying current self-care practices and what self-care activities pt wants to start using. Pt selected spiritual self-care to begin practicing more consistently. Pt plans to do this by spending time each day with God. Appeared to benefit from completing the self-care evaluation and gaining insights into current self-care practices, as well as identifying areas in which pt would like to improve upon.?Pt is to increase consistent use of healthy coping, challenge negative thinking, and prevent decompensation.
--- NOTE | 2022-07-16 09:00 | BH.SGPN.GN ---
Behaviors/Verbalizations/Mental Status: []Pt alert and oriented, casually dressed and groomed. Eye contact fair. Motor activity appropriate. Speech within normal limits. Affect congruent, mood anxious. Thoughts linear, logical, no signs of hallucinations or delusions. Reviewed pt?s symptom tracker indicates a, 2/5, with 5 being severe, for suicidal thoughts and a 1/5 for suicidal intention. This is clients baseline for suicidal thoughts. Does not appear to be imminent risk to harm self. future oriented. Client Response/Progress/Benefit: []Pt responded well to session, attentive and receptive to feedback. Client reported mental positive as spending time with her family over the weekend. Client stated additional months of positive as going on a walk. Client stated she has been doing well with taking her medications consistently which she noted some improvement in her mood and is following through with journaling consistently. Client shared she has been struggling with how to figure out what healthy and appropriate boundaries are within various social connections. Client shared she feels like she is never been taught that when she was younger and now is struggling with knowing what is appropriate. Client identified current stressor as figuring out next steps for her life since losing her apartment recently. Seemed to benefit from support from peers. Pt will continue IOP tx to challenge negative thinking, increase use of healthy coping skills, and prevent decompensation.
--- NOTE | 2022-07-16 10:10 | BH.SGPN.GN ---
Behaviors/Verbalizations/Mental Status: []Pt alert and oriented, casually dressed and groomed. Eye contact good. Motor activity appropriate. Speech within normal limits. Affect constricted, mood anxious and depressed. Thoughts linear, logical, no signs of hallucinations or delusions. Client Response/Progress/Benefit: []Pt was an active participant in group discussion and activity. Attentive during psychoeducation. Along with peers, pt was able to identify barriers to taking action. Identified several symptoms and stressors that she feels are holding her back from progress such as negative thoughts, indecision, stress, and feeling overwhelmed.? Stated these things have kept pt from self-compassion and not knowing what to do to start to make healthy changes. Pt shared that she wants to begin addressing the impact negative thoughts have had on her ability to take action. Benefited from increased self-awareness of obstacles. Will continue IOP tx to maintain mood stability, promote consistent skill application, and further reduce negative thinking. Narrative Note: []
--- NOTE | 2022-07-16 11:05 | BH.SGPN.GN ---
Behaviors/Verbalizations/Mental Status: []Pt alert and oriented, casually dressed and groomed. Eye contact good. Motor activity appropriate. Speech within normal limits. Affect constricted, mood depressed. Thoughts linear, logical, no signs of hallucinations or delusions. Client Response/Progress/Benefit: []Pt responded well to session, taking notes and participating in worksheet discussion. Pt connected with the zones of action/change and that making sustainable change comes from stepping out of one?s comfort zone into the learning zone. Pt set a goal to gain control over her negative self-talk. Pt reported plans to challenge herself to recognize at least one good thing she does each day. Pt identified using supports and skills like journaling, positive affirmations, and making a calendar to help with this goal. Appeared to benefit from identifying a small goal to benefit mental health. Will continue IOP tx to prevent decompensation, gain healthy coping skills, and improve daily functioning. Narrative Note: []
--- NOTE | 2022-07-18 11:10 | BH.SGPN.GN ---
Behaviors/Verbalizations/Mental Status: []Pt alert and oriented, casually dressed and groomed. Eye contact good. Motor activity appropriate. Speech within normal limits. Affect congruent, mood dysthymic and anxious. Thoughts linear, logical, no signs of hallucinations or delusions. Client Response/Progress/Benefit: []Pt was an active participant during activity and discussion AEB providing some input, connecting with peers, as well as taking notes throughout. Pt did well to engage as group worked on identifying characteristics and benefits of adopting a growth mindset. Worked with fellow participants in reframing the example fixed thoughts into growth mindset thoughts. Reframed personal fixed thought of ?I am too broken? with growth mindset thought of ?Everyone has challenges in life and I am a valuable person just like every other human being.? Benefitted from discussing benefits of growth mindset and brainstorming strategies for prompting growth-mindset. Pt appeared to benefit from working in small groups to challenge own thoughts and help peers. Pt will continue IOP tx to improve mood stability, reinforce healthy coping skills, and further prevent decompensation. Narrative Note: []
--- NOTE | 2022-07-18 11:42 | PCM.BH.PN ---
Progress Note Progress Note: History of Present Illness/Interim History: The patient is a 32-year-old single female with a history of bipolar 2 disorder and anxiety who is seen in follow-up at the [facility] behavioral health IOP program. The patient was last seen 1 week ago and at that time no medication changes were made as they were recently changed when she was inpatient. The patient states that she feels she is learning valuable skills in the IOP program and feels she is doing well as can be expected overall. She states that her mood seems to be a little better. She denies any thoughts of self-harm and has not engaged in any cutting. She still has a somewhat depressed mood and occasional hopelessness. She still has passive, fleeting suicidal ideation about every other day but denies active suicidal ideation, plan for suicide, homicidal ideation, hallucinations or delusions. She is still enjoying going for walks and doing rajat chi. The patient feels that taking the Vistaril is really helping her anxiety. Current Psychiatric Medications: [] Wellbutrin XL 300 mg p.o. every morning; Prozac 20 mg p.o. daily (x4 weeks); Lamictal 300 mg p.o. nightly; Seroquel 150 mg p.o. nightly; BuSpar 5 mg p.o. twice daily; Vistaril 50 mg up to 3 times a day as needed. Mental Status Examination: [] The patient is a 31-year-old female who is casually dressed and groomed with good hygiene and appears normal for stated age. She is ambulatory with a normal gait and has no psychomotor agitation or retardation. She is less reticent than 1 week ago during the interview and less vague in her history. Eye contact contact is fair as she looks down at times but also looks at the interviewer at times during the interview. Speech is normal rate and rhythm and fluent with no pressure. Mood is depressed. Affect is mildly constricted. Thought process is goal-directed and organized. Thought content: There is evidence of passive thoughts of and passive, fleeting suicidal ideation about every other day. There is no evidence of plan for suicide, active suicidal ideation, homicidal ideation, hallucinations, delusions or symptoms of elise. Reality testing is intact. Judgment is intact. Insight is fair to good. Impulsivity is moderate. Diagnoses: [] 1. Bipolar 2 disorder (currently depression) 2. Generalized anxiety disorder 3. Strong cluster B traits 4. Anxiety over postconcussion syndrome Plan: [] The patient will continue the IOP program at [facility] as the structure, support, education and group therapy will hopefully prevent worsening of the patient's symptoms which might require rehospitalization. She felt safe during the interview and if it anytime she does not feel safe she will let us know or go to the emergency room. The risk, options, possible complications and side effects of the medications were again discussed with the patient and she understands accepts these. No medication changes were made today as the medications were changed when she was in the hospital 3 weeks ago. She will continue to follow-up with her outpatient providers and we will decrease the patient stepdown from [facility] to the IOP program. I will see the patient in follow-up while in the program.
--- NOTE | 2022-07-18 15:05 | BH.MDN_ITS ---
Multi-Disciplinary Note - Note 60-min Individual Time Started:: 09:03 Date: 07/18/22 Purpose of session/treatment goals addressed:: Purpose of session was to address recent triggers impacting pt anxiety and triggering past trauma memories. Identified several skill for managing unexpected trauma triggers. Eye Contact:: Good Motor Activity:: Appropriate Appearance:: Casual Speech:: Appropriate Mood:: Anxious, Depressed Affect:: Congruent Thoughts:: Linear, Logical, No evidence of hallucinations/delusions noted Staff Interventions:: thought challenging, psychoeducation on: - isaacs mind, dichotmous thinking, reviewed healthy emotional boundary setting, strengths perspective, taught coping skills - reviewed skills for managing environmental trauma triggers Client Response:: Pt receptive of session and remained an active participant throughout. Shared having a concern she wanted to discuss prior to reviewing boundaries homework from last session. Discussed that one of the primary stressors associated with living with her parents means she is again residing in her childhood hometown and is now frequently exposed to people and places that she associated with past negative experiences and difficult memories. Provided an example of recently going for a walk with her mother and walking past a house where pt had witnessed something traumatic as a child. Became tearful in discussing and shared wanting to find healthy ways to manage these triggers so that she can continue to do things in the community without fear of unexpectedly being triggered. Shared additional fears of seeing someone she knows and being judged for being back home. Receptive of discussion on finding ways to make the environment more comfortable and begin creating new, more positive memories to associate some of these places with. Discussed using positive self-talk to help encourage herself and remind her that she is safe and that she is no longer in the same place mental [facility] [place] as she had been when experiencing some of these past memories. Identified several self-compassionate statements pt could use to help if feeling unexpectedly triggered as well. Went o to review boundaries homework and pt reflected beliefs she struggles at times with understanding healthy boundaries due to the varying nature of healthy vs. unhealthy depending on person, relationship, setting, ect. Shared she often works best with more concrete concepts and guidelines. Identified wanting to work on adopting a more growth or flexible mindset as she shared believing this would help her mental health and ability to practice self-compassion. Reviewed DBT concept of dichotomous thinking and discussed how pt can begin practicing seeing multiple viewpoints as well as thinking in ?the alcantara? more often. Risks/Concerns:: Pt denies any active suicidal ideations, plan, or intent as of this date. Pt is future oriented. No access to weapons. Progress Toward Goals/Plan:: Pt reports continued progress with less intensity of overall mental and physical health sx. Specifically feels she is making improvements in re-engaging in activities she enjoys, reaching out to her supports, and practicing self-compassion. Pt stated she continues to struggle with transitioning back to living with her parents and house found her hometown to be triggering. Shared although she has been tempted to isolate and avoid, she has been using opposite action to continue to go out into the community despite fears of what others may think or going past places she associates with prior negative experiences. Receptive of using several skills for managing triggers as discussed in session. Continues to struggle with socialization and understanding appropriate social behaviors, though continues to want to work on improving these skills. Pt will continue IOP tx to prevent decompensation, increase consistent application of skills, and continue to improve ability to manage anxiety. Time Stopped:: 09:56
--- NOTE | 2022-07-25 15:25 | BH.MTP_ITS ---
Treatment Plan Review Date of Admission:: 07/11/22 Date of Treatment Plan Review:: 07/25/22 Admitting Diagnoses:: 1. Bipolar 2 disorder (currently depression). 2. Generalized anxiety disorder. 3. Strong cluster B traits. 4. Anxiety over postconcussion syndrome Current Diagnoses:: 1. Bipolar 2 disorder (currently depression). 2. Generalized anxiety disorder. 3. Strong cluster B traits. 4. Anxiety over postconcussion syndrome Patient's Response to Treatment:: Pt has responded well to treatment AEB pt consistently taking notes and improving consistency in attendance since her post-concussion symptoms have improved. Pt contributes well during individual sessions and remains actively engaged during group sessions; however, does appear to struggling with some anxiety in group setting and often remains passive as a result. Pt is improving upon her ability to apply self-care and coping skills outside of IOP tx and reports overall improved engagement in activities she enjoys, though reports ongoing difficulties with independent engagement. Status of Current Problems and Symptoms: Pt's symptoms are still present but resolving in several areas. Pt's overall DSM-5 scores have seen a 2 point increase since admission, which may be related to ongoing difficulties in accepting her mental health diagnosis and struggles with guilt and regarding her mental health needs. Pt reports significant negative core beliefs about her worth and feeling she is a burden kimbrough to her mental health issues. Shared improving upon use of self-compassion and wants to reduce self-stigma and better accept her diagnosis. Pt reports reduced irritability and some reduction of anxiety. However, since returning to her parent?s home, pt has expressed increased trauma triggers and feelings of reduced independence which may be contributing to increased reports of not knowing who she is/what she enjoys. Problem #1 Problem Name:: Depression Status of Goals:: Objective 1-in progress, ongoing work encouraged. Pt?s DSM-5 scores for depression have remained the same since admission. Pt can identify healthy coping skills including opposite action, grounding skills, thought challenging, self-compassion, and self-care. Pt struggles with implementing thought challenging, positive self-talk, and compassion when struggling with negative core beliefs, self-criticism, or unrealistic expectations of herself Objective 2- in progress. Pt is gaining more awareness of her self-critical talk and recognizes the importance of giving herself credit for where she is making progress; however, pt struggles to consistently follow-through with keeping an accomplishment log. Team Recommendations:: Treatment team recommends pt continue working on challenging negative self-talk. Also encourage pt to continue working on self- compassion and encourage accomplishment log. Problem #2 Problem Name:: Anxiety Status of Goals:: Objective 1-complete with ongoing work encouraged. Pt can identify some triggers for anxiety. Pt reports using some skills for challenging anxious thoughts and feels medication changes have aided in reducing overall anxiety as well; however, pt struggles with consistent skill application and self-reports difficulties managing ruminating thoughts when they occur. Pt's DSM-5 scores for anxiety decreased by 14% since admission. Objective 2- in progress. Pt is currently working on learning to better identify her own distortions and fixed thinking patterns that contribute to maintaining anxiety and often reinforce ruminating thoughts. Team Recommendations:: Maintain current treatment plan
== END 2022-07-25 23:59 ==
LOC: BHIOP 09:17
PROVIDERS: Referring Provider Psychiatry & Neurology Psychiatry; Visit Provider Psychiatry & Neurology Psychiatry
DX: F31.81 Bipolar II disorder (principal); F41.1 Generalized anxiety disorder
CPT/HCPCS: S9480; 90837; 90853

== ENCOUNTER 2022-07-26 07:42 | Outpatient (RCR) | payer OTHER, MEDICAID, SELFPAY ==
--- NOTE | 2022-07-26 09:05 | BH.SGPN.GN ---
Behaviors/Verbalizations/Mental Status: [] Eye contact is poor. Motor activity is appropriate. Appearance is casual. Speech is Appropriate. Mood is anxious. Affect is congruent. Thoughts are linear and logical. No evidence of psychosis. Reviewed daily check in sheet and no reports of suicidal ideations or intent. Client Response/Progress/Benefit: [] Pt participated when prompted. Attentive. Emotion for today is ?tired and overwhelmed?. Mental health wins include journaling and ?Tracking good habits?. She is attempting to highlight positives and accomplishments. Due to her depression and mental health struggles she has been focusing on a great deal of set-back and perceived failures. She continues to report post-concussive symptoms which impact her energy, socialization, mood, and overall functioning. These symptoms include dizziness and brain fog. Benefited from group support and encouragement. Will continue in IOP to maintain safety, prevent decompensation/re-admission, and to improve functioning. Narrative Note: []
--- NOTE | 2022-07-26 10:10 | BH.SGPN.GN ---
Behaviors/Verbalizations/Mental Status: []Client alert and oriented, casually dressed and groomed. Eye contact fair. Motor activity appropriate. Speech within normal limits. Affect constricted, mood anxious. Thoughts linear, logical, no signs of hallucinations or delusions. Client Response/Progress/Benefit: []Client was an active participant in group discussions and activity. Attentive during psychoeducation. Client engaged in activity in which group was able to make connections about how can be easier to find positives in others compared to self. Engaged in interactive discussion on the definition of perspective, how perspective is formed, and why perspective is important in treatment. Client shared his perspective towards treatment today is positive. Will continue in IOP to challenge distorted thoughts, increase healthy coping, and prevent decompensation.
--- NOTE | 2022-07-30 09:00 | BH.SGPN.GN ---
Behaviors/Verbalizations/Mental Status: [] Eye contact is poor. Motor activity is appropriate. Appearance is casual. Speech is Appropriate. Mood is depressed. Affect is congruent. Thoughts are linear and logical. No evidence of psychosis. Reviewed daily check in sheet and pt reports 1/5 for suicidal thoughts and 0/5 for intent. Client Response/Progress/Benefit: [] Pt participated when prompted. Attentive. Daily symptom tracker notes 2/5 for depression/anxiety. Mental health win is I'm being more social. She is spending time with her family. Stressor related to her post-concussive symptom impacting her mental health and overall functioning. Due to post-concussive symptoms she feels increased fatigue, brain fog, and overall struggles to be active which leads to isolating and laying down. Hopeless that her symptoms will improve I really have to talk to me neurologist. She asked for feedback from the group on the appropriate use of gut-feeling vs being open-minded. Had an initial gut-feeling which was negative however is unsure if this is her being closed-minded. Benefited from group support, encouragement, and feedback. Will continue in IOP to maintain safety, prevent decompensation/re-admission, and to improve overall functioning. Narrative Note: []
--- NOTE | 2022-07-30 10:10 | BH.SGPN.GN ---
Behaviors/Verbalizations/Mental Status: [] Client alert and oriented, neatly dressed and groomed. Eye contact good. Motor activity appropriate. Speech within normal limits. Affect constricted, mood anxious. Thoughts linear, logical, no signs of hallucinations or delusions. Client Response/Progress/Benefit: [] Client not active in group discussions, indicated not feeling well and leaving after group. Attentive during psychoeducation on 4 types of conflict styles (Competing, Collaborating, Avoiding, and Accommodating) by taking notes. Worked with group to define conflict and identify how conflict is helpful. With peers identified barriers to addressing or managing conflict which included:not wanting to hurt others, lack of communication skills, and cognitive distortions. Benefited from group due to increase insight and awareness of benefits to conflict, conflict styles, and obstacles to managing conflict. Will continue in IOP to prevent decompensation, gain healthier core beliefs, and increase overall functioning. Narrative Note: []
--- NOTE | 2022-07-30 14:47 | BH.MDN ---
Multi-Disciplinary Note - Note 45-min Individual Time Started:: 09:23 Date: 07/30/22 Purpose of session/treatment goals addressed:: To work on goal #1 and #2 of pt's tx plan. Eye Contact:: Good Motor Activity:: Appropriate Appearance:: Casual Speech:: Appropriate Mood:: Anxious, Dysthymic Affect:: Congruent Thoughts:: Linear, Logical, No evidence of hallucinations/delusions noted Staff Interventions:: psychoeducation on: - bipolar disorder, CBT techniques, strengths perspective, goal setting - to begin accomplishment journal, taught coping skills - reviewed in the moment distress tolerance skills Client Response:: Pt responded well to session, open to meeting therapist. Pt shared she is struggling some with focus today due to a resurgence of post-concussive sx. Pt met with another therapist last session due to this therapist being out. Shared they spent session working self-acceptance of pt?s mental health diagnosis. Pt shared that although she has ?made a lot of progress? with accepting she needs help with managing her mental health, she continues to experience shame and fear surrounding it. Described fear of experiencing psychosis again and noted at times struggling with whether her anthony is verging on orthodoxy pre-occupation. Receptive of further discussion and exploring potential warning signs for preoccupation versus healthy levels of engagement in her anthony. Pt connected with discussion on the importance of balancing time invested in each of her values and areas of interest to prevent preoccupying herself with one specific interest or value. Identified plans to engage more consistently in other areas of interest/self-care by going on independent walks, continuing to attend the [employer] support group, joining her protestant?s choir, and trying to more consistently attend yoga/[employer] classes. Shared an additional concern regarding recent increased irritability within social settings. Provided an example of becoming agitated with the lead laying and gluing machine operator at a recent medical appointment when she was informed that her provider was running behind. Pt provided insight that unexpected changes and unmet expectations often causes pt to feel more anxious and results in irritability/becoming short with others. Remainder of session spent discussing healthy coping/distress tolerance skills for managing unexpected changes in the moment. Pt reports wanting to work on using deep breathing techniques prior to responding to stressors/irritants in the moment. Risks/Concerns:: Pt denies active suicidal ideations, plan, or intent as of 07/30/22. Pt is future oriented. Progress Toward Goals/Plan:: Pt continues to make progress towards tx goals AEB her consistent engagement and improved implementation of skills learns, specifically self-compassion. Pt continues to report anxiety and depression, but shared coming to group is helping and she is beginning to make progress with reengaging in activities she enjoys outside of the group environment. Pt connected with the importance of balanced self-care to continue to improve depressive sx and reduce risk of orthodoxy preoccupation. Continues to report issues with irritability however is receptive of beginning mood tracker and practicing distress tolerance skills discussed. Pt will continue IOP tx to prevent decompensation, reduce negative thinking patterns, and improve overall functioning. Time Stopped:: 10:16
--- NOTE | 2022-08-02 09:00 | BH.SGPN.GN ---
Behaviors/Verbalizations/Mental Status: [] Eye contact is fair. Motor activity is appropriate. Appearance is casual. Speech is Appropriate. Mood is anxious. Affect is constricted. Thoughts are linear and logical. No evidence of psychosis. Reviewed daily check in sheet and no reports of suicidal ideations or intent. Client Response/Progress/Benefit: [] Pt engaged in group session AEB sharing thoughts and feelings and listening attentively to others. Pt reported mental health positive as going to her other healthcare appointments. Reported additional win as taking a walk with her dad which she stated was enjoyable. Pt stated she also has been doing a better job with staying off the internet to avoid unnecessary triggers. Pt stated no current stressor. Reported feeling calm today. Seemed to benefit from support from peers. Will continue in IOP to continue use of healthy coping skills, challenge distorted thoughts, and prevent decompensation.
--- NOTE | 2022-08-02 10:10 | BH.SGPN.GN ---
Behaviors/Verbalizations/Mental Status: [] Eye contact is good. Motor activity is appropriate. Appearance is casual. Speech is Appropriate. Mood is anxious. Affect is congruent. Thoughts are linear and logical. No evidence of psychosis. Client Response/Progress/Benefit: [] Pt did not participate in group discussions however was attentive. Participated in and was engaged during experiential activity. Attentive during interactive discussion on what failure means to the group in which peers identified that failure is ... not meeting expectations, not having a desired outcome, and not succeeding in a task. Group was able to identify how fear of failure can lead to inaction, not trying, avoiding, giving up, lowering expectations, and remaining stuck. Attentive during interactive discussion on the role that FOF plays in mental wellness, depression, anxiety, and growth. Able to connect the experiential activity to FOF. Benefited from increased awareness of how the role that FOF plays in mental health and decision-making. Will continue in IOP to maintain safety, prevent decompensation/re-admission, and to improve functioning. Narrative Note: []
--- NOTE | 2022-08-02 11:10 | BH.SGPN.GN ---
Behaviors/Verbalizations/Mental Status: []Client alert and oriented, casually dressed and groomed. Eye contact good. Motor activity appropriate. Speech within normal limits. Affect congruent, mood anxious and dysthymic. Thoughts linear, logical, no signs of hallucinations or delusions. Client Response/Progress/Benefit: []Client responded well to session, engaged in the experiential activity and attentive throughout group processing. Client reported fear of failure has kept client from meeting new people and developing new friendships. Client completed fear of failure worksheet and was able to identify thoughts and behaviors that reinforce personal fear of failure including: past experiences, unrealistic expectations, and indecision. Client participated in small group discussion regarding strategies to overcome fear of failure. Identified wanting to work on positive affirmations, keeping an accomplishment log, and reaching out to supports. Appeared to benefit from increased knowledge of strategies to combat fear of failure and gaining self-awareness. Client will continue IOP tx to increase self-confidence, improve throughout challenging, and to reduce anxiety. Narrative Note: []
--- NOTE | 2022-08-08 09:00 | BH.SGPN.GN ---
Behaviors/Verbalizations/Mental Status: [] Eye contact is good. Motor activity is appropriate. Appearance is casual. Speech is Appropriate. Mood is anxious. Affect is congruent. Thoughts are linear and logical. No evidence of psychosis. Reviewed daily check in sheet and no reports of suicidal ideations or intent. Client Response/Progress/Benefit: [] Pt participated when prompted however was attentive. Daily symptom tracker notes 03/01 for depression, anxiety, and irritability. Emotion for today is tired. Mental health wins include walking her dog Its so helpful for my mental health. Shared that she has also stepped away from the internet. I found that it was not helpful for my post-concussive symptoms and it kept me away from other activities. Shared how the internet can negatively impact her motivation and mental health further. In the past week has been more engaged and spending more time outside however her post-concussive symptoms are still obstacle to progress. Benefited from group support, encouragement, and feedback. Will continue in IOP to maintain safety, prevent decompensation/readmission, and to increase healthy coping. Narrative Note: []
--- NOTE | 2022-08-08 10:18 | BH.SGPN.GN ---
Behaviors/Verbalizations/Mental Status: []Eye contact is good. Motor activity is appropriate. Appearance is casual. Speech is Appropriate. Mood is anxious. Affect is congruent. Thoughts are linear and logical. No evidence of psychosis. Client Response/Progress/Benefit: []Pt was an a mostly passive but attentive participant in group discussions. Attentive during psychoeducation. Engaged and provided feedback along with peers on defining anxiety. Group worked together to identify the benefits of anxiety which included; motivates us, helps us prepare, helps us perform, helps us identify danger, and can keep us safe. Participated with prompting during interactive discussion on how anxiety impacts one physically (increased heart rate, sweaty hands, etc), cognitively (poor concentration, fogginess, catastrophizing, etc), and behaviorally (avoidance, anger, safety behaviors, etc). Shared commonly experiencing physical anxiety symptoms of irritability, muscle tension, increased sensitivity to environment, and crying spells. Benefited from increase insight into anxiety's benefits and detriments. Will continue in IOP to prevent decompensation, maintain mood stability, increase healthy coping, and improve functioning. Narrative Note: []
--- NOTE | 2022-08-09 10:05 | BH.SGPN.GN ---
Behaviors/Verbalizations/Mental Status: []Pt alert and oriented, casually dressed and groomed. Eye contact fair. Motor activity appropriate. Speech within normal limits. Affect constricted, mood euthymic. Thoughts linear, logical, no signs of hallucinations or delusions. Client Response/Progress/Benefit: []Pt mostly passive participant AEB no contributions to discussion, however did appear to be taking notes and listen attentively to peers. Group discussed the benefits of managed anger and anger as a secondary emotion. Pt completed worksheet on anger triggers and personal warning signs of anger. Pt did not share her anger triggers with the group. Appeared to benefit from increased knowledge of the anger cycle as well as personal triggers. Pt to continue IOP to continue use of healthy coping skills, challenge distorted thoughts, and prevent decompensation.
--- NOTE | 2022-08-09 10:36 | BH.MDN_ITS ---
Multi-Disciplinary Note - Note 45-min Individual Time Started:: 09:13 Date: 08/09/22 Purpose of session/treatment goals addressed:: Purpose of session was to address current symptoms and stressors. Additionally, discussed upcoming discharge plans. Eye Contact:: Good Motor Activity:: Appropriate Appearance:: Casual Speech:: Appropriate Mood:: Euthymic, Anxious Affect:: Congruent Thoughts:: Linear, Logical, No evidence of hallucinations/delusions noted Staff Interventions:: motivational interviewing, psychoeducation on: - mindfulness and brain-body connection, mindfulness skills, discharge planning, strengths perspective Client Response:: Pt receptive of session, actively engaged and openly discussed thoughts, feelings, and current stressors. Shared feeling a little disappointed that her insurance did not approve tx beyond next week, but has ultimately accepted and feels ready to transition to individual outpatient treatment. Pt will additionally begin the IOP aftercare program. Shared overall feeling more positive and present in her daily life. Shared beliefs this is a result of reducing screen time, mindfulness practices, and spending more time outdoors. Expressed improved mood when in nature and plans to continue with daily walks and gardening as a result. Reports plans to join the [employer] as well and indicated that this would present more opportunities to connect with others and expand her current support network. Pt identified her primary stressor at this time as finding other things to fill her time post IOP d/c. Expressed interest in exploring different therapy options and inquired whether any therapeutic modalities discuss the management of physical tension in the body brought on by emotion dysregulation and learning to process past trauma. Pt shared that she recognized more tension in her body in times she experiences flashbacks or difficult memories associated with past negative experiences. Therapist normalized and provided psychoeducation on mind-body connection and introduced the therapeutic process of Mindfulness-based stress reduction. Pt reported interest in exploring this as well as potential interest in looking into art or equine therapy options in her area as well. Therapist provided resources to several of pt?s local agencies providing these services. Risks/Concerns:: No suicidal ideation, plan, or intent noted as of this date 08/09/22 Progress Toward Goals/Plan:: Pt plans to discharge from IOP tx next week on 08/17/22. Pt has stressors related to her physical health/post concussion syndrome and navigating/understanding healthy boundaries, but overall pt feels much better and self-reports her mood is consistently more stable. Pt reports less anxiety, improved confidence and self-compassion, as well as increased engagement in activities she enjoys. Pt still struggles with negative thinking patterns that reinforce depression and anxiety but has improved significantly and is improving her ability to reach out for help in challenging these when she struggles. Pt will continue IOP through next week to reinforce healthy coping skills, establish aftercare, and improve self-compassion. Time Stopped:: 10:00
--- NOTE | 2022-08-10 09:02 | BH.SGPN.GN ---
Behaviors/Verbalizations/Mental Status: []Eye contact fair to good. Motor activity appropriate. Speech within normal limits. Affect congruent, mood irritable. Thoughts linear, logical, no signs of hallucinations or delusions. Reviewed client?s symptom tracker, suicidal ideation identified as a 2/5 which pt reports as related to her irritability, denies plan, or intent as of 08/10/2022. Client Response/Progress/Benefit: []Client responded well to session, attentive and willing to process with group. Identified current mental health wins as improved ability in managing her anxiety. Shared doing so by going on more consistent walks, spending time in the garden, as well as playing with her dog. Additional win noted as consistently tracking one hobby. Shared feeling a renewed sense of accomplishment in doing so. Current stressor noted as waking up feeling irritable without a clear trigger. Appeared to benefit from group support and encouragement, as well as brainstorming strategies for reducing irritability today. Client gave positive feedback to other group members as they shared. Recommended continued IOP tx to continue to increase overall functioning, improve engagement in healthy self-care and hobbies, and prevent decompensation. Narrative Note: []
--- NOTE | 2022-08-10 10:10 | BH.SGPN.GN ---
Behaviors/Verbalizations/Mental Status: []Pt alert and oriented, casually dressed and groomed. Eye contact fair. Motor activity appropriate. Speech within normal limits. Affect constricted, mood agitated. Thoughts linear, logical, no signs of hallucinations or delusions. Client Response/Progress/Benefit: []Pt was an active participant in group discussion and experiential activity. Attentive during psychoeducation on possible causes to developing and maintain unhealthy coping skills which can impact mental health. Pt contributed during interactive discussion identifying common unhealthy coping skills and identified personal ones as self-harm, stress eating, and binge-watching TV all day. Able to make connections between experiential activity (folder towers) and importance of having a solid base of internal and external coping skills. Benefited from increased awareness of internal and external coping skills and identifying unhealthy coping skills. Pt will continue IOP tx to increase emotional regulation skills, further improve daily functioning, and combat distortions. ?? Narrative Note: []
--- NOTE | 2022-08-13 09:00 | BH.SGPN.GN ---
Behaviors/Verbalizations/Mental Status: [] Eye contact is good. Motor activity is appropriate. Appearance is casual. Speech is Appropriate. Mood is depressed. Affect is congruent. Thoughts are linear and logical. No evidence of psychosis. Reviewed daily check in sheet and pt reports 1/5 for suicidal thoughts and 1/5 for intent. Therapist to meet with patient today. Client Response/Progress/Benefit: [] Pt participated when prompted. Attentive. Daily symptom tracker notes 3/5 for anxiety/irritability and 2/5 for anxiety.Emotion for today is tense. [employer] wins reported to be going on a walk with my dog. She continues to maintain an accomplishment journal which helps her identify positives and also goal-setting. She has been working on being more vulnerable around others and not feeling guilty about reaching out to support for help. Insight that isolating and not reaching out for fear of judgement have not been helping her progress. Progress noted per pt report. Benefited from group support, encouragement, and feedback. Will continue in IOP to prevent decompensation/re-admission to psych, maintain safety, and increase healthy coping. Narrative Note: []
--- NOTE | 2022-08-13 10:12 | BH.SGPN.GN ---
Behaviors/Verbalizations/Mental Status: []Pt alert and oriented, appropriate grooming/appearance. Eye contact fair. Motor activity appropriate. Speech within normal limits. Affect congruent, mood anxious and dysthymic. Thoughts linear, logical, no signs of hallucinations or delusions. Client Response/Progress/Benefit: []Pt was an active participant in group discussions. Attentive during psychoeducation. C during interactive discussions in which peers attempted to define crisis. Pt identified some examples of potential crisis. Group also worked together to identify unhealthy responses to crisis which included; isolation, self-harm, substance abuse, avoidance, and lashing out. Pt identified personal warning signs as negative self-talk, catastrophizing thoughts, and irritability. Benefited from increased understanding of crisis and awareness of personal responses to crisis. Pt will continue IOP tx to prevent decompensation and continue to promote healthy skill application, as well as improve use of thought challenging skills. Narrative Note: []
--- NOTE | 2022-08-15 12:00 | BH.COMM ---
Communication Note - Communication with Client Communication Note: Pt presented to [facility] today however did not attend groups due to post-concussive symptoms. She requested and was given a quiet room to minimize environmental stimuli which she stayed for a majority of the IOP day.
--- NOTE | 2022-08-15 14:44 | PCM.BH.PN_ITS ---
Progress Note Progress Note: Original Note: Progress Note Progress Note: And history of Present Illness/Interim History: The patient is a 32-year-old single female with a history of bipolar disorder and anxiety who is seen in follow-up at the [facility] behavioral health IOP program.? I last saw the patient over 3 weeks ago and at that time no medication changes were made.? The patient states that she had the start of her menstrual period on August 10, 2022 and she had a worsening of her depression which started about a week before her period and continues during her period.? She has occasional thoughts of self-harm and cutting in a few days ago she had passive, fleeting suicidal ideation which she attributes to her premenstrual exacerbation.? The patient states that her depression was a little better until the time of her period.? Her anxiety has improved.? She has been on oral contraceptive pills for she thinks maybe 3 months and they have been continuous and this has helped with menstrual cramps but she feels that the premenstrual symptoms she has emotionally have not changed at all.? She denies active suicidal ideation, plan for suicide, homicidal ideation, hallucinations or delusions. ? Current Psychiatric Medications: [] Wellbutrin XL 300 mg p.o. every morning; Prozac 20 mg p.o. daily (x7 weeks); Lamictal 300 mg p.o. nightly; Seroquel 150 mg p.o. nightly; Seroquel 25 mg p.o. as needed for anxiety but the patient is only taking it every 3 days or so one of them.? BuSpar 5 mg twice daily.? Vistaril 50 mg only about every other day 1 time now. ? Mental Status Examination: [] The patient is a 31-year-old female who appears normal for stated age and is mildly disheveled today with good hygiene.? She is ambulatory with a normal gait and has no psychomotor agitation or retardation.? She has improved greatly in her ability and willingness to give a history.? Eye contact is fair to good.? Speech is normal rate and rhythm and fluent with no pressure.? Mood is depressed.? Affect is consistent constricted and tearful at times.? Thought processes goal-directed and organized.? Thought content: There is evidence of passive, fleeting suicidal ideation several days ago and evidence of occasional passive thoughts of .? There is no evidence of active suicidal ideation, plan for suicide, homicidal ideation, hallucinations or delusions.? Reality testing is intact.? Judgment is intact.? Insight is fair to good.? Impulsivity is moderate. ? Diagnoses: [] ? 1.? Bipolar 2 disorder (currently depression) 2.? Generalized anxiety disorder 3.? Strong cluster B traits 4.? Anxiety over postconcussion syndrome ? Plan: [] The patient will continue the IOP program at [facility] as the structure, support, education and group therapy will hopefully prevent worsening of the patient's symptoms that might require hospitalization.? She felt safe during the interview and if it anytime she does not feel safe she will let us know or go to the emergency room.? The risk, options, possible complications and side effects of the medications were again discussed with the patient and she understands and accepts these.? She agrees to add 10 mg of Prozac daily from cycle day 20 for 12 days each month to see if this helps with the premenstrual worsening of her depression.? Prescription is sent in for this number, #12 with unknown number of refills.? She will continue to follow-up with her outpatient providers and I will see the patient in follow-up in several weeks and as needed. ? ? ?
--- NOTE | 2022-08-17 08:45 | BH.DS_ITS ---
Discharge Summary - Demographics Date of Admission:: 07/13/22 Discharge Date: 08/17/22 Presenting Problems at Admission:: The patient is a 32-year-old single female with a history of bipolar 2 disorder who is known to the [facility] program as she completed our program on April 12, 2021. The patient was referred for [facility] level of care after being admitted to [facility] inpatient unit from June 15-2022 due to depression with a self-interrupted suicide attempt (by hanging) when the patient was premenstrual, which she believes worsened her sx. She does continue to endorse passive SI, but is able to manage these thoughts and notes reduction in severity and frequency. Denies any active SI, plan, or intent. Client completed 1 weeks of PHP and did well with improving ability to utilize coping skills, manage post-concussion sx, practice more consistent self-care and self-compassionate self-talk, as well as continue to work on communicating more openly with supports which has resulted in symptom reduction. Client does however continue to report issues with guilt, worthlessness, depressive sx, social anxiety and difficulties making connections with others, difficulties applying independent coping skills, mood swings, and anxiety. Client?s functioning is improving, but it is still not at her baseline, therefore resulting in client transitioning to the [facility] level of care. Discharge Diagnoses:: 1.? Bipolar 2 disorder (currently depression). 2.? Generalized anxiety disorder. 3.? Strong cluster B traits. 4.? Anxiety over postconcussion syndrome Reason for Discharge:: Pt to discharge on this date as she has met the maximum potential benefit of tx. Due to pt inconsistent attendance and difficulties remaining in group for the full day of tx as a result of physical difficulties associated with her post concussive syndrome. At this time, pt is more appropriately suited to continue with outpatient counseling and [facility] aftercare. - Treatment Progress During Treatment & Response: Pt has made variable progress in tx since admission. She has been able to more successfully return to activities she enjoys, reports increased self-compassion, and has been able to remain out of inpatient hospitalization for the past 8 weeks. Pt is engaged in individual sessions and completes all homework. She has successfully begun an accomplishment log and reports this has aided in reducing negative self-talk as well. When present in groups, pt is attentive, takes notes, and contributes to small group discussions. However, pt continues to struggle significantly with physical sx of her post concussive syndrome which are often triggered by environmental stimuli. This has resulted in difficulties with consistent tx attendance, leaving groups to lay down, as well as difficulties concentrating at times. Due to this, pt progress has been significantly impeded as she has not been present for much of the group material presented. Pt additionally reported increased passive SI and shared beliefs this is related to her menstrual cycle as she struggles with significant PMDD. Pt DSM-5 scores may be reflective of this as well. Pt receptive of recent medication changes suggesting she add 10 mg of Prozac daily from cycle day 20 for 12 days each month to see if this helps with the premenstrual depression. Pt was receptive to feedback, consistent with homework, and willing to push herself despite anxiety and physical health restrictions. Pt plans to attend [facility] aftercare as well as follow up with her outpatient providers. Issues Still to be Addressed:: Understanding healthy boundaries, social anxiety and social skills, Negative core beliefs, ongoing difficulties in managing communication and conflict resolution with others Discharge Recommendations/Instructions:: Pt will follow up with her outpatient providers at [facility]. Pt sees Dr. Roca for medication management. Pt has a standing scheduled individual counseling appointment weekly. Pt will start IOP aftercare group on 08/23/22 which lasts eight weeks. Discharge Handout: Complete Discharge Handout with client on aftercare options and continuity of care.
--- NOTE | 2022-08-17 08:57 | BH.MDN ---
Multi-Disciplinary Note - Note 30-min Individual Time Started:: 09:18 Date: 08/17/22 Purpose of session/treatment goals addressed:: To address current stressors and strategies to help cope with these stressors. Another goal was to review tx progress, as well as discuss discharge and aftercare. Eye Contact:: Good Motor Activity:: Appropriate Appearance:: Disheveled, Casual Speech:: Appropriate Mood:: Euthymic, Anxious Affect:: Congruent Thoughts:: Linear, Logical, No evidence of hallucinations/delusions noted Staff Interventions:: motivational interviewing, CBT techniques, strengths perspective, treatment planning - aftercare planning Client Response:: Pt responded well to session, open to meeting with therapist. Reviewed aftercare plan and pt shared she plans to continue seeing her outpatient therapist weekly as well as attend the regular [facility] support group she has been going to. Discussed reviewing the various equine, art, and [facility] therapeutic resources given in last session. Shared a desire to look more into art specific therapy as she has recently been spending more time drawing and has found this to be a positive and enjoyable experience. Pt will begin the IOP aftercare program next week as well. Spent time reviewing areas of progress since beginning tx and pt identified increased self-acceptance, ability to begin forgiving others for past trauma, improved positive self-talk and confidence, getting back into activities she enjoys, as well as continuing to make progress on developing a more growth mindset. Pt shared she sees a lot of progress and pt is glad she followed through with [facility] despite several difficulties associated with post-concussion syndrome. Disclosed a current stressor as learning information regarding her older sister?s struggles with her own mental health and healthy decision making. Shared trying to work on accepting that her sister may not be in a place where she is ready and willing to accept help in managing her mental health. Reports complicated emotions regarding this relationship and described fear, anger, guilt, and sadness. Therapist normalized and aided in pt processing. Discussed the importance of healthy boundaries and focusing on using her supports, as well as what is in her control in the situation. Shared plans to continue using self-care, as well as reaching out to her outpatient providers and healthy familial supports to process and accept this stressor. Risks/Concerns:: Pt denies any suicidal ideations, plan, or intent as of this date 08/17/22. Reports adding the additional Prozac to manage PMDD symptoms has helped with eliminating intrusive thoughts of and hopelessness. Progress Toward Goals/Plan:: Pt to discharge on this date as she has met the maximum potential benefit of tx. Due to pt inconsistent attendance and difficulties remaining in group for the full day of tx as a result of physical difficulties associated with her post concussive syndrome. At this time, pt is more appropriately suited to continue with outpatient counseling and IOP aftercare.Pt will follow up with her outpatient providers at [facility]. Pt sees Dr. Roca for medication management. Pt has a standing scheduled individual counseling appointment weekly. Pt will start IOP aftercare group on 08/23/22 which lasts eight weeks. Time Stopped:: 09:53
--- NOTE | 2022-08-17 10:05 | BH.SGPN.GN ---
Behaviors/Verbalizations/Mental Status: []Pt alert and oriented, casually dressed and groomed. Eye contact good. Motor activity appropriate. Speech within normal limits. Affect congruent, mood anxious and euthymic. Thoughts linear, logical, no signs of hallucinations or delusions. Client Response/Progress/Benefit: []Pt responded well to session, attentive during psychoeducation on SMART goals (Specific, Measurable, Achievable, Realistic, and Time-bound). Participated in an interactive discussion with peers in which they worked together to define what a goal is and the benefits of having goals. Group identified benefits as; gives purpose, improves motivation, improves relationships, and personal growth. Participated in small group discussion identifying barriers to setting goals and following through with goals. Pt identified her personal barriers to include negative self-talk/ self-comparing and fear of failure. Benefited from increased awareness of benefits and strategies for goal-setting. Will d/c from IOP tx on this date and transition to the Aftercare program on 08/23/22. Narrative Note: []
--- NOTE | 2022-08-17 11:10 | BH.SGPN.GN ---
Behaviors/Verbalizations/Mental Status: []Pt alert and oriented, casually dressed, fair grooming. Eye contact fair. Motor activity appropriate. Speech within normal limits. Affect constricted, mood euthymic. Thoughts linear, logical, no signs of hallucinations or delusions. Client Response/Progress/Benefit: []Pt was engaged during discussion and willing to complete the worksheet challenging them to develop a personal SMART goal. Pt chose the goal of writing down three positives from her day every night before bed. Pt stated this will benefit them by practicing positive thinking. Pt identified barriers which included procrastination, depression, anxiety, despair, and discouragement. Identified for barrier of discouragement she will track progress and encourage herself by having a reward for accomplishing something. Pt receptive to identifying solutions for these barriers and willing to begin working on this goal. Benefited from this group by developing a short-term SMART goal related to mental health. Pt has made treatment progress since starting IOP and will discharge today.
--- NOTE | 2022-08-17 14:28 | BH.IGGP_ITS ---
Aftercare Plan - Demographics Treatment End Date:: 08/17/22 Psychiatrist:: Tammie Ortiz Psychiatrist Office #:: [phone] PHP/IOP Therapist:: Natty Motnerroso Therapist Phone #:: [phone] - Plan Details Progress/Aftercare Plan Details:: Berlin has made strides since starting IOP as shown by her self-report of reduced symptoms, ability to better challenge distortions, and overall increased ability to manage emotions and stressors. When Berlin started PHP, he was severely depressed, struggling with self-care, and was feeling hopeless. Now, Berlin is more actively using healthy coping skills, practicing self-care, challenging negative thoughts, and using the awareness she has gained to manage her emotions. In individual sessions, [place] was receptive to feedback, consistent with homework, and willing to push herself outside her comfort zone. Strategies for Success:: 1. Opposite action! continue using this skill when you want to isolate, avoid, lash out, or hide. 2. Self-care. Play in the garden, listen to music, relax, go out or stay in, continue to set boundaries, and SPEAK KINDLY TO YOURSELF. 3. Challenge distortions. Remember that thoughts are thoughts not facts. Challenge yourself to give yourself credit rather than minimizing. 4. Communicate with supports even though it is hard. 5. Continue to stay social, it has helped so much. 6. Self-compassion. You are just as worthy as anyone else of compassion, understanding, and annmarie. Never forget that. 7. Remember setbacks happen, but that does not mean progress is erased. 8. Keep wr iting and drawing and using your creative brain. 9. Keep up with therapy and review your binder. 10. Keep working on small steps! You got this! - Appointments Appointments/Referrals to Other Services:: Pt will follow up with her outpatient providers at [facility]. Pt sees Dr. Roca for medication management. Pt has a standing scheduled individual counseling appointment weekly. Pt will start IOP aftercare group on 08/23/22 which lasts eight weeks. Discharge Handout: Complete Discharge Handout with client on aftercare options and continuity of care. - Medications Home Medications: Home Medications bupropion HCl 150 mg 24 hr tablet, extended release (Wellbutrin XL) 300 mg PO DAILY 11/29/21 lamotrigine 150 mg tablet (Lamictal) 300 mg PO QHS 11/29/21 quetiapine 100 mg tablet (Seroquel) 150 mg PO QHS 11/29/21 quetiapine 25 mg tablet (Seroquel) 25 mg PO TID PRN PRN Anxiety 11/29/21 fluoxetine 20 mg capsule (Prozac) 20 mg 07/11/22 hydroxyzine pamoate 50 mg capsule 50 mg PO 4X/DAY PRN PRN Anxiety 07/11/22 norethindrone acetate 1 mg-ethinyl estradiol 20 mcg tablet (Junel) 1 tab PO DAILY 07/11/22 trazodone 50 mg tablet 50 mg PO QHS PRN PRN Insomnia 07/11/22 fluoxetine 10 mg capsule (Prozac) 10 mg PO DAILY 12 days #12 caps 08/15/22
== END 2022-08-17 13:34 | disposition home or self-care (01) ==
LOC: BHIOP 07:42
PROVIDERS: Referring Provider Psychiatry & Neurology Psychiatry; Visit Provider Psychiatry & Neurology Psychiatry
DX: F31.81 Bipolar II disorder (principal); F41.1 Generalized anxiety disorder
CPT/HCPCS: S9480; 90832; 90834; 90853

== ENCOUNTER 2022-08-23 08:00 | Outpatient (RCR) | payer OTHER, MEDICAID, SELFPAY ==
--- NOTE | 2022-08-23 10:57 | BH.MTP ---
Master Treatment Plan Patient Information Program Physician:: Dr. Tammie Fitzgerald Primary Therapist:: SHRUTHI Lua Psychiatric Diagnoses Psychiatric Diagnoses:: 1. Bipolar 2 disorder (currently depression). 2. Generalized anxiety disorder. 3. Strong cluster B traits. 4. Anxiety over postconcussion syndrome Diagnosis Code(s):: F 31.82 Estimated LOS Estimated LOS (in weeks):: 8 Problem/Goal #1 Problem/Goal #1 Stated Goal:: client will maintain or see a reduction in symptoms AEB client score on the DSM 5 cross-cutting measure and improve client's daily functioning. Objectives Objective #1: Stated Objective: Client will continue to consistently apply healthy coping skills to maintain progress made in IOP tx. Interventions: Through group therapy, client will review warning signs and triggers as well as healthy coping skills learned in IOP tx to successfully maintain gains while transitioning into outpatient therapy. Discharge Criteria: Client will have accomplished this goal when client's score on the DSM-5 cross-cutting measure has maintained or reduced over a 8 week period. Target Date: 10/11/22 Review Date: 09/13/22 Objective #2: Stated Objective: Client will learn and utilize 2-3 maintenance strategies to prevent decompensation from original IOP DSM-5 scores. Interventions: Through group therapy, client will be provided with education on healthy maintenance behaviors, relapse prevention techniques, and healthy coping strategies. Discharge Criteria: Client will have accomplished this goal when can report using at least 2 maintenance skills to prevent decompensation compared to original IOP DSM-5 scores Target Date: 10/11/22 Review Date: 09/13/22
--- NOTE | 2022-08-23 14:00 | BH.COMM ---
Communication Note Communication with Client Communication Note: Patient completed IOP and presents today to start relapse prevention group which meets once weekly (1.5 hours) for 8 weeks. Case discussed with Dr. Fitzgerald with plan to admit with dx of F31.01
== END 2022-08-24 23:59 ==
LOC: BHOG 08:00
PROVIDERS: Referring Provider Psychiatry & Neurology Psychiatry; Visit Provider Psychiatry & Neurology Psychiatry
DX: F31.81 Bipolar II disorder (principal); F41.1 Generalized anxiety disorder
CPT/HCPCS: 90853

== ENCOUNTER 2022-08-27 07:15 | Outpatient (RCR) | payer OTHER, MEDICAID, SELFPAY ==
--- NOTE | 2022-09-04 10:52 | BH.MTP ---
Master Treatment Plan Patient Information Program Physician:: Dr. Tammie Fitzgerald Primary Therapist:: SHRUTHI Lua Psychiatric Diagnoses Psychiatric Diagnoses:: 1. Bipolar 2 disorder (currently depression). 2. Generalized anxiety disorder. 3. Strong cluster B traits. 4. Anxiety over postconcussion syndrome Diagnosis Code(s):: F 31.81 Estimated LOS Estimated LOS (in weeks):: 8 Problem/Goal #1 Problem/Goal #1 Stated Goal:: client will maintain or see a reduction in symptoms AEB client score on the DSM 5 cross-cutting measure and improve client's daily functioning. Objectives Objective #1: Stated Objective: Client will continue to consistently apply healthy coping skills to maintain progress made in IOP tx. Interventions: Through group therapy, client will review warning signs and triggers as well as healthy coping skills learned in IOP tx to successfully maintain gains while transitioning into outpatient therapy. Discharge Criteria: Client will have accomplished this goal when client's score on the DSM-5 cross-cutting measure has maintained or reduced over a 8 week period. Target Date: 10/11/22 Review Date: 09/13/22 Objective #2: Stated Objective: Client will learn and utilize 2-3 maintenance strategies to prevent decompensation from original IOP DSM-5 scores. Interventions: Through group therapy, client will be provided with education on healthy maintenance behaviors, relapse prevention techniques, and healthy coping strategies. Discharge Criteria: Client will have accomplished this goal when can report using at least 2 maintenance skills to prevent decompensation compared to original IOP DSM-5 scores Target Date: 10/11/22 Review Date: 09/13/22
--- NOTE | 2022-09-06 14:00 | BH.SGPN.GN ---
Behaviors/Verbalizations/Mental Status: []Pt alert and oriented, casually dressed and groomed. Eye contact fair to good. Motor activity appropriate. Speech within normal limits. Affect congruent, mood content and anxious. Thoughts linear, logical, no signs of hallucinations or delusions. Client Response/Progress/Benefit: []Pt receptive of session, attentive and engaged throughout. Reports she has recently attended outpatient counseling. Pt is currently taking her psychiatric medication and following up with outpatient psychiatrist. Reports use of journaling, self-compassion, reaching out to supports to aid in continued maintenance and mood stability. Pt was attentive throughout the group discussion on the relationship between emotions and behaviors. Pt reports connecting with examples of ways emotions can dictate behaviors and consequences of this. Shared she struggles at times with knowing how to accept and express discomfort in healthy ways. Connected with psychoeducation portion reviewing 5 aspects of appropriately managing feelings. Noted wanting to work on the Identifying Feelings aspect and identified plans to practice looking at a feelings wheel and identifying her emotion daily to gain further awareness. Pt will continue with aftercare tx for ongoing support, to maintain gains, and promote continued mood stability. Narrative Note: []
--- NOTE | 2022-09-13 14:00 | BH.SGPN.GN ---
Behaviors/Verbalizations/Mental Status: []Pt alert and oriented, casually dressed and groomed. Eye contact good. Motor activity appropriate. Speech within normal limits. Affect congruent, mood calm. Thoughts linear, logical, no signs of hallucinations or delusions. Client Response/Progress/Benefit: []Pt responded well to session, attentive and engaged. Pt reports she has been taking her medications consistently and she met with a therapist this week. Pt has not had a psychiatrist appointment. Pt states she has been walking, listening to music, journaling, and practicing self-reflection to cope with emotions and maintain mood stability. Pt receptive to discussion and reading of the Chapters of My Life handout. Pt able to connect with the chapters and stated belief she is in chapter 5 which means pt is using coping skills consistently and wants to keep tracking her healthy habits. Pt shared to keep moving forward, she wants to remind herself to keep an accomplishment log. Pt appeared to benefit from connecting with peers and reflecting on her application of coping skills. Pt will continue IOP aftercare to promote gains made in IOP and reinforce healthy coping skills. Narrative Note: []
--- NOTE | 2022-09-20 14:00 | BH.SGPN.GN ---
Behaviors/Verbalizations/Mental Status: []Pt alert and oriented, neatly dressed and groomed. Eye contact good. Motor activity appropriate. Speech within normal limits. Affect flat, mood calm. Thoughts linear, logical, no signs of hallucinations or delusions. Client Response/Progress/Benefit: [] Pt receptive of session, engaged throughout. Pt reports she is consistent with medications and seeing her therapist. Pt reports walking in the [place], tracking positive habits, and watching movies helped with recent stressors. ?Receptive of discussion on personal accountability and its importance in maintaining mental health stability. Engaged in brainstorming strategies for improving ability to hold themselves accountable. Reported wanting to work on losing weight and making healthier breakfast choices. Pt shared she is data-driven, so marking it on a calendar and printing off recipes will hold pt accountable. Pt seemed to benefit from support from peers and increasing understanding of personal accountability benefits and strategies. Will continue IOP aftercare group to maintain gains and prevent decompensation. Narrative Note: []
--- NOTE | 2022-09-26 07:22 | BH.TPR ---
Treatment Plan Review Demographics Date of Admission:: 08/23/22 Date of Treatment Plan Review:: 09/13/22 Admitting Diagnoses:: Bipolar 2 disorder (currently depression) F31.81 2. Generalized anxiety disorder. 3. Strong cluster B traits. 4. Anxiety about post-concussion syndrome Current Diagnoses:: Bipolar 2 disorder (currently depression) F31.81 2. Generalized anxiety disorder. 3. Strong cluster B traits. 4. Anxiety about post-concussion syndrome Patient Status Patient's Response to Treatment:: Pt responding well to treatment AEB pt's consistent attendance, active engagement in group discussions, follow up with outpatient providers, and reporting use of skills outside treatment environment. Pt utilizes IOP aftercare to process current stressors, practice giving herself credit for daily accomplishments, continue to work on challenging negative thought patterns, and identify coping strategies. Status of Current Problems and Symptoms: Per pt's DSM-5, pt is reporting severe anxiety that has increased since IOP discharge. However, there is a discrepancy as during pt's check-ins, pt reports functioning better and utilizing numerous skills. Pt's biggest stressor this week was wanting to talk to her individual therapist about changing the structure of their sessions so pt can focus more on weekly goals. This could potential be the reason for increased anxiety as pt gets anxious about conflict. Progress Problem #1: Problem Name:: Pt will maintain or decrease symptoms from IOP admission data. Status of Goals:: Obj 1 - not complete due to situational stressor increasing pt's DSM-5 scores. . Obj 2 - complete with ongoing work encouraged. Pt has been consistently reporting self-care, thought challenging, and using healthy coping skills. Team Recommendations:: Recommended pt continue IOP aftercare group to show maintenance of progress. Will continue to encourage pt to attend regular outpatient counseling and psychiatry appointments as well. Pt also encouraged by peers and facilitators to advocate for herself in individual therapy to focus more on weekly goals to improve accountability.
== END 2022-09-24 23:59 ==
LOC: BHOG 07:15
PROVIDERS: Referring Provider Psychiatry & Neurology Psychiatry; Visit Provider Psychiatry & Neurology Psychiatry
DX: F31.81 Bipolar II disorder (principal); F41.1 Generalized anxiety disorder; F41.8 Other specified anxiety disorders
CPT/HCPCS: 90853

== ENCOUNTER 2022-09-25 07:14 | Outpatient (RCR) | payer OTHER, MEDICAID, SELFPAY ==
--- NOTE | 2022-10-04 14:00 | BH.SGPN.GN ---
Behaviors/Verbalizations/Mental Status: []Client alert and oriented, casually dressed and groomed. Eye contact fair to good. Motor activity appropriate. Speech within normal limits. Affect congruent, mood depressed and anxious. Thoughts linear, logical, no signs of hallucinations or delusions. Client Response/Progress/Benefit: []Receptive of session, engaged throughout. Pt reports she has remained consistent in attending outpatient counseling and psychiatry appointments, as well as maintaining medication compliance. Noted use of positive self-talk, opposite action, reaching out to supports, and journaling as coping skills aiding in ongoing mental health maintenance. Engaged and attentive during discussion of vulnerability and benefits of practicing vulnerability. Shared being vulnerable has not been easy for her as she struggles with fear of rejection or embarrassment. Group discussed ways we avoid feeling vulnerable and how this negatively affects mental health and relationships. Appeared to benefit from group support and discussion reflecting on the positive impact vulnerability can have on mental health. Identified plans to challenge herself to start a conversation with someone in one of her classes as a way in which she could practice being vulnerable in the next week. Pt will continue with aftercare tx to maintain gains and prevent decompensation. Narrative Note: []
--- NOTE | 2022-10-18 11:59 | BH.DS ---
Discharge Summary Demographics Date of Admission:: 08/23/22 Discharge Date: 10/18/22 Presenting Problems at Admission:: Client discharged from [facility] tx and transitioned to [facility] aftercare to maintain gains client made in [facility] and to reinforce healthy coping skills. At admission to [facility] aftercare, client reported experiencing mild to moderate symptoms of anxiety, depression, and irritability. Client was reporting ongoing issues with prioritizing self-care, managing her post-concussion sx, navigating interpersonal relationships, and consistently managing daily stressors. Ongoing difficulties in maintaining consistent with emotion regulation skills, self-compassion, as well as challenging distorted thought patterns. Discharge Diagnoses:: Bipolar 2 disorder Reason for Discharge:: Pt has completed the aftercare program and has met the maximum benefit of aftercare tx. Pt will continue with outpatient counseling and psychiatry for ongoing maintenance. Treatment Progress During Treatment & Response: Pt did well with attendance and remained attentive though passive in engagement. Pt contributed well during group discussions, often providing insight and supportive feedback. Pt was able to see a reduction of overall sx from [facility] admission to aftercare discharge of 43%, with a 100% reduction in SI, 100% reduction in irritability, 33% reduction in depression, and 29% reduction in sx of anxiety. Pt reports improved ability to manage daily stressors, communicate with supports, and challenge distorted thought patterns. Issues Still to be Addressed:: Distorted thoughts and ongoing issues with emotion regulation behaviors, negative self-talk, avoidance, ruminations, difficulty setting boundaries and communicating needs when feeling overwhelmed. Discharge Recommendations/Instructions:: Pt will follow up with her outpatient providers at [facility]. Pt sees Dr. Roca for medication management. Discharge Handout
== END 2022-10-18 15:16 | disposition home or self-care (01) ==
LOC: BHOG 07:14
PROVIDERS: Referring Provider Psychiatry & Neurology Psychiatry; Visit Provider Psychiatry & Neurology Psychiatry
DX: F31.81 Bipolar II disorder (principal)
CPT/HCPCS: 90853

== ENCOUNTER 2024-11-02 08:00 | Outpatient (RCR) | payer OTHER, MEDICAID, SELFPAY ==
--- NOTE | 2024-11-02 09:05 | BH.SGPN.GN ---
Behaviors/Verbalizations/Mental Status: [] Eye contact is poor. Motor activity is appropriate. Appearance is casual. Speech is Appropriate. Mood is depressed and anxious. Affect is congruent. Thoughts are linear and logical. No evidence of psychosis. Reviewed daily check in sheet and no reports of suicidal ideations or intent. Client Response/Progress/Benefit: [] Pt did not participate in group discussions. Declined to share however was attentive. Daily symptom tracker notes 5/5 for depression, anxiety, and irritability. Today was pt's first day in IOP level of care. Visibly anxious. No progress noted. Benefited from group support, encouragment and feedback on what to expect for first day/week in IOP level of care. Will continue in IOP to prevent decompensation, increase healthy coping, and improve functioning. Narrative Note: []
--- NOTE | 2024-11-02 10:10 | BH.SGPN.GN ---
Behaviors/Verbalizations/Mental Status: []Pt alert and oriented, casually dressed and groomed. Eye contact good. Motor activity appropriate. Speech within normal limits. Affect dysthymic, mood depressed. Thoughts linear, logical, no signs of hallucinations or delusions. Client Response/Progress/Benefit: [] Pt was an attentive and active participant, AEB taking notes and providing input in group discussion. Attentive during psychoeducation. Pt engaged during interactive discussion in which the group defined self-care and discussed its benefits. Group discussed barriers and benefits to self-care. Identified benefits as being more productive, feeling more grounded, feeling happier, less irritability, and being more capable. Pt participated in small groups where they worked to identify and challenged common self-care ?myths?. Benefited from increased awareness of self-care, its benefits, and the consequences of not utilizing self-care strategies. Pt connected with myths of self-care being selfish and too much energy. Will continue IOP tx to prevent decompensation, improve daily functioning, and reduce isolation. ?? Narrative Note: []
--- NOTE | 2024-11-02 13:53 | BH.COMM ---
Communication Note Communication with Client Communication Note: Met with pt to complete initial paperwork and administer the CSSR-S screening and risk assessment. Pt is a mild risk as pt denies any active SI, plan, or intent within the past month. Pt does have thoughts of and admits to passive SI almost every day. Pt shared I feel like that has been my life for the past 10 years and I don?t want to act on it.? Pt denies having thoughts of methods and no intent. Future oriented. Denies any self-harm or suicide attempts since her last [facility] admission. No access to weapons. Discussed case with Dr. Rivera and pt will be admitted to [facility] tx with a diagnosis of F31.81, Bipolar II disorder, most recent episode depressed.
--- NOTE | 2024-11-02 15:07 | BH.MDN_ITS ---
Multi-Disciplinary Note Note 45-min Individual: Time Started:: 12:00 Date: 11/02/24 Purpose of session/treatment goals addressed:: Met with pt to build rapport, gather information on current sx/triggers leading to hospitalization, and to begin to work on treatment plan goals. Eye Contact:: Good Motor Activity:: Appropriate Appearance:: Casual Speech:: Appropriate Mood:: Anxious and Depressed Affect:: Congruent Thoughts:: Linear, Logical and No evidence of hallucinations/delusions noted Staff Interventions:: motivational interviewing, rapport building, strengths perspective, treatment planning and goal setting Client Response:: Pt receptive of session and willing to meet with therapist following groups for the day. Pt did have to leave the group setting during the experiential activity due to post-concussion sx. Pt described difficulties with activities/movement triggering her sx and noted that she may have to take on observational role when the group is doing an activity to prevent sx from occurring. Pt reports that this has continued to be a frustration for her as she has been dealing with these sx since her concussion in 2019. Pt explained that she has had to reduce activity due to symptomology and depression making it difficult to be active. Pt had been active in [facility] at her [facility] but reports she has not attended these classes in a few weeks due to low motivation and worsening sx of depression. Pt reports that her depressive sx have been worsening over the past year since her outpatient therapist retired and she ended a friendship with her drier take off tender due to feeling she was experiencing inappropriate feelings towards him. Pt has not found a new provider yet and would like to work with someone who is [place]-based. Pt reports an additional recent stressor as her sister ?stalking? her. Describes her sister as struggling with severe mental illness and refusing help. Reports that she was recently ?kicked out of her penitentiary? and has been randomly showing up places pt is and following her car. Pt has avoided contact and gone to the police who noted they cannot assist with a restraining order until pt verbally asks her sister to stop contact first. Pt does not want to go this route as it would require her to make contact. Reports her other sister and parents have been supports and are aiding pt in managing her anxiety surrounding this. Pt notes that she would like to focus on managing her grief associated with the end of the friendship, find more social connections, get back into her hobbies and interests, as well as improve her consistency with personal hygiene routines. Risks/Concerns:: Denies active suicidal ideations, plan, or intent. Future-oriented. Reports ability to maintain safety and shared she will be spending the afternoon with her family which are protective factors. Long- standing fleeting SI. Progress Toward Goals/Plan:: Limited progress noted as this was pt's first day in tx. She presents as motivated to engage in both individual and group therapy. Feeling she is lacking a sense of purpose and worries for her future, recent stressor involving her estranged sister, resurgence of post-concussion syndrome sx, grieving loss of a relationship, and reengaging in ADLs are primary concerns. She endorses low motivation, negative self-talk, not showering or brushing teeth regularly, increased isolation, lack of energy, increased anxiety, crying spells, and oversleeping. Pt will continue in tx to prevent decompensation/prevent re-admission to psych unit, increase healthy coping, and to maintain safety. Time Stopped:: 12:47
--- NOTE | 2024-11-02 15:15 | BH.PSA ---
Source of Information Presenting Problems/Circumstances Problems, Referral Source, Mental Status, Client: Berlin is a 34y/o female who presented to [facility] IOP program for further evaluation and treatment of bipolar 2 disorder, anxiety, and PMDD. Patient presents to IOP self referred due to worsened symptoms of depression as she had completed this program 2 other times in the past. Berlin endorses recently struggling with increased depressed mood, irritability and she has been withdrawn, with low motivation and energy, is not taking care of self and has been isolating and poor personal hygiene. Experiencing hopelessness and negative intrusive thoughts about dying though no active thoughts of suicide, poor memory and difficulty concentrating. She reports she has been more anxious as well but that her anxiety is situational and is worse when she is depressed. Psychiatric Presentation Psych Issues & Need for Admission Psychiatric Issues:: Bipolar 2 disorder, currently depressed. Anxiety. Mood instability Past Psychiatric History MH Treatment Hx Treatment History: The patient has had several prior psychiatric admissions with the most recent one being at [facility] psychiatry inpatient unit June 15 through June 21, 2022 due to depression with self interrupted suicide attempt by hanging. [facility] in 2011. She had a suicide attempt in 2009 but does not wish to go into detail about this. She had a counselor or therapist name Nehemias Wick for weekly counseling which she feels has been helpful; however, he retired and pt has not found a new provider since. Retired 1 year ago. She also does not have a psychiatrist currently.Sees Dr. Byrd and is happy with her current provider First hospitalization:: 2009 following suicide attempt Most recent hospitalization:: [facility] psychiatry inpatient unit June 15 through June 21, 2022 depression Medication Trials:: Yes (Wellbutrin, buspar, hydroxyzine ) ECT Therapy:: No Age of first mental health symptoms: Reports she is always struggled with anxiety and depression but it 19 had her first manic episodes that persisted until she got treatment Describe (age, circumstance, etc) any past hospitalizations: see above Current providers for mental health treatment (counselor, psychiatrist, community case manager, etc.): Sees Dr. Byrd and is happy with her current provider. No counselor Development & Family of Origin Childhood Significant Childhood Events: Patient declined to talk about her childhood Family Who currently lives in your home?: Lives with her parents and dog Describe family composition:: Patient is the second youngest out of 5 with 3 sisters and 1 brother. Gets along with all siblings except 1 sister Family History Family Hx of Psychiatric or AOD Problems: Paternal grandfather and paternal aunt with history of depression, sister had a prior suicide attempt and bipolar disorder, brother has hx of alcohol use problems Ethnicity Sexuality Sexual Orientation: Heterosexual Spirituality Restorationism Do you currently identify with any organized presybeterian?: Oriental Orthodox Beliefs Is there a particular form of support from this community you can use for your recovery?: Yes (recently estranged from yarsani) Mental Status Memory Recent Memory: Fair Remote Memory: Fair Concentration Concentration: Fair Eye Contact Eye Contact: Fair Speech Speech: Congruent Thought Process Thought Process: Logical Insight: Fair Judgment: Fair Behavior: Normal Appearance Appearance: Disheveled Mood Mood: Anxious and Depressed Affect Affect: Constricted Suicide Assessment Suicidal Ideation Have you ever felt like hurting yourself?: Yes Please explain:: hx of two prior suicide attempts 2009 and 2022 Were you using ETOH/drugs at the time?: No Suicidal Intentional Rating Scale (SIRS): Suicidal thoughts (past) Physician Notification Violent Behavior/Abuse History Homicidal Ideation Do you have any homicidal thoughts? If so, explain:: No Abuse Have you ever been abused?: No Please explain:: Pt did not want to discuss remote hx Life Events Are there any other significant life events?: Hardships (post-concussion syndrome since 2019; Had previously found support through her arts and crafts teacher but stopped this last year) and Family illness (estranged from one sibling due to untreated mental health issues) Safety Do you ever feel threatened in your home? If yes, describe:: No Adult Social History Age 19 to Present Describe your current support system:: Parents, siblings, anthony, [facility], some friends Substance Use Substance Substance Use Type: None Leisure/Social Activities Interests What do you enjoy or might be interested in learning about?: Pt enjoys walking her dog, yoga, and art. Would like to learn ways to better manage mental health sx Education & Occupational Histo Education What is your level of education?: Some College Do you have any learning disabilities?: No Occupation List any current or past employment:: Disability for Bipolar Disorder Service Service Have you ever been in the ?: No Legal History Records Have you had any past legal charges?: No Do you have any current legal charges?: No Have you ever been incarcerated? If yes, describe:: No Court Orders Have you had any past court orders for psychiatric treatment?: No Do you have a present court order for psychiatric treatment?: No Problem Checklist Current Problem Areas Problem List: Depressed mood/sad, Anxiety, Pertinent health issues (post concussive syndrome) and Additional psychosocial stressors (estranged sister contacting her) Discharge Planning Needs Anticipated Follow-Up Mental Health Center (Name/Phone Number):: Needs connected Private Therapist/Psychiatrist:: Needs connected Family and Caregiver Contacts:: Mother Release of Information Signed:: Yes Material Specialist's Assessment Client's Needs What are the client's goals?: Pt hopes to be able to better manage mental health sx and see a reduction in depression Diagnoses Diagnoses Diagnosis #1:: Bipolar 2 Interpretive Summary Interpretive Summary Interpretive Summary: Berlin is a 34y/o female who presented to [facility] IOP program for further evaluation and treatment of bipolar 2 disorder, anxiety, and PMDD. Patient presents to IOP self referred due to worsened symptoms of depression as she had completed this program 2 other times in the past. Berlin endorses recently struggling with increased depressed mood, irritability and she has been withdrawn, with low motivation and energy, is not taking care of self and has been isolating and poor personal hygiene. Experiencing hopelessness and negative intrusive thoughts about dying though no active thoughts of suicide, poor memory and difficulty concentrating. She reports she has been more anxious as well but that her anxiety is situational and is worse when she is depressed. Not presently experiencing any manic symptoms but reports having multiple manic episodes between 2009 and 2011 with racing thoughts, being more outgoing, increased activity and goal-oriented activities. She was psychiatrically hospitalized multiple times and started on treatment with improvement of those symptoms and has not had a manic episode since though struggled intermittently with depression and anxiety. Reports her appetite is about the same, denies any panic attacks or history of eating disorder OCD. Patient denies any HI, no AH or VH, no crying spells. She is feeling very stressed and overwhelmed and notes a lot of this started when her sister came back into her life but she is beginning to leave her alone and she feels like this will begin to help symptoms to some extent. Patient also noted that she had 2 concussions in 2019 and 2020 and will have random postconcussive symptoms that come and go and she has had increased anxiety about that as well. Treatment Plan Recommendations Recommendations Guidelines Recommendations:: The patient will begin IOP in Behavioral Health at [facility]. The program's structure, support, education, and therapy aim to prevent deterioration of symptoms and avoid the need for PHP or inpatient hospitalization. I have a reasonable expectation that the patient will make practical improvements in their presenting symptoms and will be discharged to a lower level of care.
--- NOTE | 2024-11-02 15:16 | BH.MTP_ITS ---
Master Treatment Plan Patient Information Program Physician:: Dr. Maribell Rivera Primary Therapist:: SHRUTHI Lau Psychiatric Diagnoses Psychiatric Diagnoses:: Bipolar 2 Diagnosis Code(s):: F31.81 Estimated LOS Estimated LOS (in weeks):: 6 Problem/Goal #1 Problem/Goal #1 Stated Goal:: Client will reduce depression and worthlessness due to Bipolar Disorder through IOP Services. Description of Barriers: Client's negative thinking, distorted thoughts, difficulties opening up to others, anhedonia, and suspicion of others are potential barriers to treatment. Functional Impact: Berlin is a 34y/o female who presented to [facility] IOP program for further evaluation and treatment of bipolar 2 disorder, anxiety, and PMDD. Patient presents to IOP self referred due to worsened symptoms of depression as she had completed this program 2 other times in the past. Berlin endorses recently struggling with increased depressed mood, irritability and she has been withdrawn, with low motivation and energy, is not taking care of self and has been isolating and poor personal hygiene. Experiencing hopelessness and negative intrusive thoughts about dying though no active thoughts of suicide, poor memory and difficulty concentrating. She reports she has been more anxious as well but that her anxiety is situational and is worse when she is depressed. Objectives Objective #1: Stated Objective: Client will learn and utilize 2-3 healthy coping strategies to manage depressive symptoms as shown by reduced DSM-5 cross-cutting symptom measure score. Interventions: Therapist will utilize CBT techniques to assist client with understanding the connection between thoughts, feelings and behaviors. Education will be provided on behavioral activation. Therapist will assist client in learning internal coping strategies to manage depressive symptoms, along with helping client identify triggers. Discharge Criteria: Client will have achieved this goal when can verbalize and has practiced at least 2 healthy coping strategies and pt?s score on the DSM 5 cross cutting measure for depression has been decreased and per pt?s report daily functioning has improved. Target Date: 12/25/24 Review Date: 12/03/24 Objective #2: Stated Objective: Client will identify and replace 2-3 negative thinking patterns that reinforce depressive symptoms. Interventions: Therapist will assist client in developing an awareness of the cognitive messages that reinforce depressive thinking. Therapist will also assist client in challenging negative thinking patterns. Discharge Criteria: Client will have achieved this goal when can identify at least 2 negative thinking patterns, replace negative thinking with more positive, affirmative messages. Target Date: 12/25/24 Review Date: 12/03/24
--- NOTE | 2024-11-04 09:00 | BH.SGPN.GN ---
Behaviors/Verbalizations/Mental Status: [] Eye contact is good. Motor activity is appropriate. Appearance is casual. Speech is Appropriate. Mood is depressed and anxious. Affect is congruent. Thoughts are linear and logical. No evidence of psychosis. Reviewed daily check in sheet and pt reports o/5 for suicidal thoughts and 0/5 for intent. Client Response/Progress/Benefit: [] Pt participated when prompted. Attentive. Daily symptom tracker notes 5/5 for anxiety/irritability and 4/5 for depression. Emotion for today is tense. Mental health wins reported to be starting back in IOP tx and recognizing the need to return before symptoms got more severe. Additional win noted as reaching out to her sister and a friend for support with an ongoing stressor. Noted that her puppy?s energy levels have been an ongoing stressor and planning to look into once a week dog daycare to give herself a break. Progress noted per pt report challenging herself to reach out for support. Benefited from group support, encouragement, and feedback. Will continue in IOP to prevent decompensation, maintain safety, and increase healthy coping. Narrative Note: []
--- NOTE | 2024-11-04 10:10 | BH.SGPN.GN ---
Behaviors/Verbalizations/Mental Status: []Pt alert and oriented, disheveled in appearance. Eye contact poor. Motor activity appropriate. Speech within normal limits. Affect constricted, mood anxious. Thoughts linear, logical, no signs of hallucinations or delusions. Client Response/Progress/Benefit: []Pt was an passive participant in group discussion and activity. Attentive during psychoeducation. Along with peers, pt was able to identify barriers to taking action in their life. Identified several symptoms and stressors that pt feels are holding them back from progress. Pt able to identify how these things have negatively impacted progress. Benefited from increased self-awareness of obstacles. Pt will continue IOP to improve emotion regulation, challenge negative thoughts, and prevent decompensation.
--- NOTE | 2024-11-04 11:10 | BH.SGPN.GN ---
Behaviors/Verbalizations/Mental Status: []Pt alert and oriented, neatly dressed and groomed. Eye contact good. Motor activity appropriate. Speech within normal limits. Affect flat, mood depressed. Thoughts linear, logical, no signs of hallucinations or delusions. Client Response/Progress/Benefit: [] Pt responded well to session, taking notes and participating in worksheet discussion. Pt connected with the discussion on action steps, and this helped pt learn how to set goals differently. Pt set a SMART goal that pt will ?write down three things I did that were positive that day and use it to encourage myself.? Pt noted that she can use spiritual and motivational books as a resource as well. ?Appeared to benefit from identifying a small goal to benefit mental health. Pt is to continue IOP tx to increase distress tolerance, reduce negative self-talk, and reduce isolation. ? Narrative Note: []
--- NOTE | 2024-11-06 09:21 | PCM.BH.PSYEV ---
Intake Vital Signs 07/11/22 11:49 11/06/24 09:21 11/06/24 10:34 Height 1.7 m 1.7 m 1.7 m Weight: 86.183 kg BP 137/79 H Pulse 84 Intake Visit Reasons: Depression with anxiety Allergies No Known Allergies Allergy (Verified 11/06/24 09:29) Medications ?Medication ?Instructions ?Recorded ?Confirmed ?Type lamotrigine 150 mg tablet 300 mg PO QHS 11/29/21 11/06/24 History (Lamictal) quetiapine 100 mg tablet (Seroquel) 150 mg PO QHS 11/29/21 11/06/24 History quetiapine 25 mg tablet (Seroquel) 25 mg PO TID PRN PRN Anxiety 11/29/21 11/06/24 History fluoxetine 20 mg capsule 60 mg PO QDAY 11/06/24 11/06/24 History hydroxyzine pamoate 25 mg capsule 25 mg PO Q8H PRN anxiety 11/06/24 11/06/24 History (Vistaril) PFSH () Medical History (Updated 11/06/24 @ 14:[address] Maribell Rivera MD) Bipolar 2 disorder Generalized anxiety disorder Surgical History (Updated 11/29/21 @ 10:42 by Alayna Burgos) H/O wisdom tooth extraction HPI () History of Present Illness History provided by: patient Chief complaint: Depression/depressive symptoms HPI: Berlin is a 34y/o female who presented to [facility] IOP program for further evaluation and treatment of bipolar 2 disorder, anxiety, and PMDD. Patient presents to IOP self referred due to worsened symptoms of depression as she had completed this program 2 other times in the past. Berlin endorses recently struggling with increased depressed mood, irritability and she has been withdrawn, with low motivation and energy, is not taking care of self and has been isolating and poor personal hygiene. Experiencing hopelessness and negative intrusive thoughts about dying though no active thoughts of suicide, poor memory and difficulty concentrating. She reports she has been more anxious as well but that her anxiety is situational and is worse when she is depressed. Not presently experiencing any manic symptoms but reports having multiple manic episodes between 2009 and 2011 with racing thoughts, being more outgoing, increased activity and goal-oriented activities. She was psychiatrically hospitalized multiple times and started on treatment with improvement of those symptoms and has not had a manic episode since though struggled intermittently with depression and anxiety. Reports her appetite is about the same, denies any panic attacks or history of eating disorder OCD. Patient denies any HI, no AH or VH, no crying spells. She is feeling very stressed and overwhelmed and notes a lot of this started when her sister came back into her life but she is beginning to leave her alone and she feels like this will begin to help symptoms to some extent. Patient also noted that she had 2 concussions in 2019 and 2020 and will have random postconcussive symptoms that come and go and she has had increased anxiety about that as well. Current psychiatric medications: seroquel 150mg, [id number] qhs, prozac 20mg (was increased to 60 from 20 and she got very irritable so after 1 dose went back to 20 mg), also taking Seroquel as needed which she finds helpful Side effect concerns: None Past psychiatric treatment Hx: -First age experiencing symptoms: Reports she is always struggled with anxiety and depression but it 19 had her first manic episodes that persisted until she got treatment -Previous diagnoses: Bipolar disorder, anxiety, post concussion syndrome, PMDD -Psychiatrist: Sees Dr. Byrd and is happy with her current provider -Therapist: She is in therapy for a long time but her outpatient counselor retired over a year ago and she has yet to find a new counselor. Had been finding support through a machine quilt stuffer at [employer] however was increasingly emotionally attached to him so no longer sees him which has been difficult -Psychiatric hospitalizations: Admitted to [facility] psychiatry inpatient unit June 15 through June 21, 2022 due to depression with self interrupted suicide attempt by hanging. Has also been in the intensive outpatient treatment program 2 other times, once in 2021 and once in 2022. Also had previously endorsed being admitted over 10 times between 2009 and 2011, and 2009 attempted suicide (overdose on meds) with no other suicide attempts -Suicide attempts: Attempted to overdose on medicine in 2009 with no other attempts reported -NSSI: History of cutting was not cut since 2022 -Medication trials: Wellbutrin, cannot longer get name brand but gets SI on the generic so it was stopped, buspar got side effects and felt twitchy, hydroxyzine stopped d/t concerns it would affect her negative cognitively given her postconcussive symptoms -ECT or TMS?: None Medical Hx: -Medical problems: History of 2 concussions diagnosed with postconcussive syndrome -Surgeries: [place] teeth -Allergies: None -Medications: See home med list Substance use Hx: No -Alcohol: Denies -Drugs: Denies -Rehab: Denies -Tobacco use: No Family Hx: -Mental illness: Paternal grandfather and paternal aunt with history of depression -Suicide attempts or completions: Sister attempted suicide -Substance Use: Brother with alcohol use problems -General medical conditions: Unsure Psychosocial: -Born/raised: [facility] -Childhood: Patient declined to talk about her childhood -Siblings: Patient is the second youngest out of 5 with 3 sisters and 1 brother. Gets along with all siblings except 1 sister that was mentioned above -Current living situation and location: Lives with mom and dad in [place] -Marital status: Single -Children: No -Support system: Lives with parents -Highest level of education: Graduated high school, some college but did not graduate -Employment hx/Income: Doesn't work, has not worked since 2011 and is on disability for her bipolar disorder -Taoist affiliation: Had previously found support through her machine quilt stuffer but stopped this last year -Legal problems: Denies -Hx of abuse: Patient did not want to discuss any remote history Medical ROS: General: Denies fever HENT: Denies headache EYES: Denies acute changes in vision Resp: denies shortness of breath Cardiac: Denies chest pain GI: denies changes in bowel, denies nausea/vomiting : Denies changes in urination MSK: Denies weakness Neuro: Denies any numbness/tingling Heme: Denies any bleeding or bruising Skin: Denies rashes Psychiatric: As above Exam () Mental Status Exam- Psych () Appearance casually dressed, unkempt and slumped posture Attitude guarded Activity/Motor Behavior fidgeting and downcast eyes Speech regular rate and monotone Mood dysphoric Affect blunted Thought Process linear and coherent Thought Content no delusions and no hallucinations Suicidal Ideation none Homicidal Ideation none Attention intact Concentration intact Sensorium/Orientation awake and alert Memory/Cognition intact Insight questionable Judgement questionable Assessment & Plan () Assessment & Plan (1) Bipolar 2 disorder: Problem Details: currently depressed Plan: Patient reports depressed mood, irritability, withdrawn with low motivation and low energy, isolating, poor hygiene/difficulty with ADLs, hopelessness, negative intrusive thoughts about dying, poor memory and difficulty concentrating. She is presently on Seroquel 150 mg nightly, Lamictal 300 mg nightly and fluoxetine 20 mg daily. She has found Seroquel Lamictal helpful and has been on these doses for a while, went from fluoxetine 20 up to 60 and had increased irritability but only took this for 1 day. She would like to add a medication to help with her depression. First discussed increasing Seroquel but patient hesitant and said she feels like this dose has been helpful, discussed going up on Prozac to 40 mg instead of 60 as this may be better tolerated but she is unsure if she wants to increase that dose again. Discussed adding mirtazapine given she is unable to take the Wellbutrin anymore and she would like to add a medication to her regimen but is already on an SSRI, atypical antipsychotic, and Lamictal but she would like to look into this more. Also discussed that we could change Prozac to another SSRI as an additional option if she does not think that Prozac has been particularly helpful but she also is unsure about this. Discussed each option one by one but patient was not particularly inclined to try any of these and would like to think about it, options written down for patient so that she could think about this further and let us know. Medications: Discontinued fluoxetine Take 1 po daily for 12 days beginning one week before menses. Take in addition to 20 mg prozac. Discontinued Reason: Completed therapy 10 mg PO DAILY 12 days 12 caps 0RF Plan Detail Assessment: The patient will begin IOP in Behavioral Health at [facility]. The program's structure, support, education, and therapy aim to prevent deterioration of symptoms and avoid the need for PHP or inpatient hospitalization. I have a reasonable expectation that the patient will make practical improvements in their presenting symptoms and will be discharged to a lower level of care. Visit Details Comments: Spent a total of [ ] minutes on the date of the service which included [ ]. Charges/Coding Behavior Health Behavior Health Psychiatric Evaluation: 37164 Psych Diag Exam w/ Medical Services
--- NOTE | 2024-11-06 09:21 | BH.DR.ITP ---
Initial Treatment Plan Patient Information Visit Information: ADMISSION DATE: EXPECTED LOS: 6-8 weeks Diagnoses:: bipolar 2, current episode depressed Problems/Symptoms Problem #1:: bipolar 2, current episode depressed Symptom:: depressed mood, irritability, withdrawn with low motivation and low energy, isolating, poor hygiene/difficulty with ADLs, hopelessness, negative intrusive thoughts about dying, poor memory and difficulty concentrating
--- NOTE | 2024-11-06 09:30 | BH.NA_ITS ---
Physical Data Vital Signs Pulse Rate: 84 Blood Pressure: 137/79 Height/Weight Height: 1.7 m Weight:: 86.183 kg Weight in Pounds: 190.0 lbs Current Medication Compliance Medication Compliance Do you take your medication as prescribed?: Yes Functional Assessment Sleep Pattern Describe any problems with sleeping: Client states she has been sleeping about 8 hours per night. Sensory/Communication Assess Communication Problems Do you have difficulty understanding what people are saying?: No Medical Problems/History Neurological Conditions Neurological: Other (See comments) (had a concussion in 2019 and 2020 - states she still has symptoms from post concussion syndrome) Surgical History Surgical History Have you had any surgeries? If so, list type and date:: Yes (wisdom teeth extraction) Substance Abuse Substance Abuse Please describe substance abuse in the last 30 days:: Client denies alcohol, tobacco or substance use. Client states she occasionally drinks coffee. Mental Status Summary Mental Status Significant Findings/Observations on Appearance and Mood:: Client is alert and oriented x 4. Client is casually groomed. Client is cooperative with assessment. Client makes fair/poor eye contact. Clients voice has normal rate and volume. Client has a restricted affect. Client makes logical associations and has normal processing. Client denies delusions/hallucinations. Client denies SI at this time. Suicide Assessment Suicidal Ideation Are you currently or have you been suicidal in the past?: Yes Suicidal Intentional Rating Scale (SIRS): Suicidal thoughts (past) Physician Notification Past Psychiatric History MH Treatment Hx Past Psychiatric Medications:: lots per client, Wellbutrin Age of first mental health symptoms: Client was diagnosed with bipolar around age 19. Describe (age, circumstance, etc) any past hospitalizations: Client states she was hospitalized many times between [id number] until she was stabilized. Client was last hospitalized in May 2022 at [facility] for SI with plan. Current providers for mental health treatment (counselor, psychiatrist, behavioral health case manager, etc.): [facility] in [place] Risk Assessment Age Age: Less than 60 Mental Status Mental Status: Willing & able to ask for assistance when needed Physical Status Physical Status: No problems Impairments Impairments: None Elimination Elimination: Continent AND independent Gait or Balance Gait or Balance: Walks independently Hx of Falls History of falls in the past 6 months: No known history Medications/Substances Psychotropics:: Antidepressants, Antipsychotics and Mood stabilizers Medications/substances used within the past 24 hours or ordered to administer: 3 or more of the medications/substances listed above Total Score Total Points:: 2 RN Summary of Impressions Impressions Recommendations Impressions: Psychiatric Issues: Bipolar 2 disorder, generalized anxiety disorder Level of Care How do the client's current symptoms and functional deficits support need for this level of care?: Client was in IOP in November 2021 and June 2022. Client returns at this time due to depression impacting her ability to function. Client reports decreased energy and feeling a loss of purpose. Per chart, client recently saw her sister that she is estranged from and this was a stressor. Client denies SI at this time. IOP will promote gains and prevent further d ecompensation while providing social support and skills training. Nutritional Screen Height/Weight Height: 1.7 m Weight:: 86.183 kg Weight in Pounds: 190.0 lbs Nutrition Screening Normal Weight: 86.183 kg Normal/Usual Weight in Pounds: 190.0 lbs Have you lost weight without trying: No Have you been eating poorly because of a decreased appetite: No Recently been on tube feeds, TPN, or have any nutritional access device in place: No Have any large open wounds or wounds that are not healing: No Calculated Weight Change: 0 Change in weight Score: 0 MST Screening Tool Score: 0
--- NOTE | 2024-11-06 10:15 | BH.SGPN.GN ---
Behaviors/Verbalizations/Mental Status: []Pt alert and oriented, disheveled appearance. Eye contact fair. Motor activity appropriate. Speech within normal limits. Affect constricted, mood depressed Thoughts linear, logical, no signs of hallucinations or delusions. Client Response/Progress/Benefit: [] Pt was attentive during psychoeducation and participated in group activity. Group discussed what influences a person?s perspective and how perspective can positively or negatively impact mental health treatment. Group identified several factors that can influence perspective which include; mood, current stressors, sleep, health, hunger, and several others.?Pt appeared to benefit from increasing awareness of different perspectives and how they can affect mental health. Pt noted that their perspective today is ?positive. I feel confident and trust the people working at the program.? Pt will continue IOP tx to reinforce healthy coping skills, improve daily functioning, and reduce isolation. Narrative Note: []
[2024-11-06 10:34] VITALS: BP 137/79; PULSE 84
--- NOTE | 2024-11-06 11:10 | BH.SGPN.GN ---
Behaviors/Verbalizations/Mental Status: []Pt alert and oriented, disheveled in appearance. Eye contact poor. Motor activity appropriate. Speech within normal limits. Affect flat, mood dysthymic. Thoughts linear, logical, no signs of hallucinations or delusions. Client Response/Progress/Benefit: [] Pt was attentive and contributed to group discussion. Pt worked with group to identify strategies that can help with challenging negative perspective. Pt stated she wants to practice focusing on daily positives and identify daily gratitude to help challenge a negative perspective. Benefited from identifying strategies that can help with improving perspective and identifying one strategy to focus on to improve current perspective. Pt will continue IOP tx to increase consistent use of healthy coping skills, challenge negative thoughts, and prevent decompensation.
--- NOTE | 2024-11-09 09:05 | BH.SGPN.GN ---
Behaviors/Verbalizations/Mental Status: [] Eye contact is poor. Motor activity is appropriate. Appearance is disheveled. Speech is Appropriate. Mood is anxious. Affect is congruent. Thoughts are linear and logical. No evidence of psychosis. Reviewed daily check in sheet and no reports of suicidal ideations or intent. Client Response/Progress/Benefit: [] Pt participated when prompted. Attentive. Shared that it has been a struggle for her to complete tasks and be motivated due to resurgence of post-concussive symptoms. Primary motivation is her puppy who keeps her active and engaged in the day. He is great. Anxious today. Her long-time counselor left the agency and she is currently seeking a new therapist. Group provided support and empathized with this change. Group also provided suggestion and feedback from kayla experiences looking for a new therapist which was helpful. Limited progress mainly related to exacerbation of post-concussive symptoms. She asked to speak with this therapist after group about continuing in IOP and helping her schedule with a new therapist. Benefited from group support, encouragement,a nd feedback. Will be discharged from [facility] today at her request as environment is too stimulating which impacts her post-concussive symptoms. Refer to individual note. Narrative Note: [] Behaviors/Verbalizations/Mental Status: [] Eye contact is poor. Motor activity is appropriate. Appearance is disheveled. Speech is Appropriate. Mood is anxious. Affect is congruent. Thoughts are linear and logical. No evidence of psychosis. Reviewed daily check in sheet and no reports of suicidal ideations or intent. Client Response/Progress/Benefit: [] Pt participated when prompted. Attentive. Shared that it has been a struggle for her to complete tasks and be motivated due to resurgence of post-concussive symptoms. Primary motivation is her puppy who keeps her active and engaged in the day. He is great. Anxious today. Her long-time counselor left the agency and she is currently seeking a new therapist. Group provided support and empathized with this change. Group also provided suggestion and feedback from thier experiences looking for a new therapist which was helpful. Limited progress mainly related to exacerbation of post-concussive symptoms. She asked to speak with this therapist after group about continuing in IOP and helping her schedule with a new therapist. Benefited from group support, encouragement,a nd feedback. Will be discharged from [facility] today at her request as environment is too stimulating which impacts her post-concussive symptoms. Refer to individual note. Narrative Note: []
--- NOTE | 2024-11-09 10:10 | BH.MDN_ITS ---
Multi-Disciplinary Note Note 30-min Individual: Time Started:: 10:10 Date: 11/09/24 Purpose of session/treatment goals addressed:: Reviewed progress and current symptoms. Discharge planning. Eye Contact:: Fair Motor Activity:: Appropriate Appearance:: Disheveled Speech:: Appropriate Mood:: Anxious and Dysthymic Affect:: Congruent Thoughts:: Linear, Logical and No evidence of hallucinations/delusions noted Staff Interventions:: discharge planning Client Response:: Pt requested to speak to therapist. Pt reports an exacerbation of post-concussive symptoms (Headache, Dizziness, Fatigue, Difficulty concentrating, Memory problems, Irritability, Sleep disturbances, Sensitivity to light or noise, Nausea, Balance problems) which she attributes to increased stress related to her sister stalking her. According to pt its common for stress to impact her post-concussive symptoms. While she has found IOP to be beneficial in the past the environment currently is to overstimulating which has caused her to disengage from group discussions/activities. After a brief discussion it was agreed that IOP level of care is currently not the right setting due to exacerbation of post-concussive symptoms. She requested assistance in linking her with an outpatient therapist. Risks/Concerns:: No risks or concerns noted. Denies SI, plan, or intent. Future-oriented. Protective factors as her puppy and family. Progress Toward Goals/Plan:: No significant clinical progress has been observed during the past week. The patient has reported experiencing overstimulation, which she verbalized to staff multiple times over the past week. At one point, she requested to spend an entire group session in a quiet, dark room to manage post-concussive symptoms. She has consistently declined participation in self-care activities, mindfulness exercises, and group programming, citing symptom exacerbation. The patient has expressed a desire to discharge from the Intensive Outpatient Program (IOP) level of care. Despite current challenges, she maintains an optimistic outlook, stating, ?I?ve gotten through this all before.? She demonstrates insight into her condition, referencing past experiences with more severe exacerbations of post-concussive symptoms and mental health difficulties. She identified that limiting exposure to overstimulating environments, engaging in daily physical activity, and participating in individual therapy have been effective strategies in the past. This therapist contacted [facility], a local private practice, and scheduled an intake appointment for the patient with SHERRON Avila, on Saturday at 8:00 AM. The patient is also currently linked with a psychiatrist and has a scheduled appointment this week.Patient will be discharged from [facility] level of care today. Continued outpatient support will be provided through individual therapy and psychiatric follow-up. Time Stopped:: 10:40
--- NOTE | 2024-11-13 08:58 | BH.DS ---
Discharge Summary Demographics Date of Admission:: 11/09/24 Discharge Date: 11/13/24 Presenting Problems at Admission:: [place] is a 34y/o female who presented to [facility] program for further evaluation and treatment of bipolar 2 disorder, anxiety, and PMDD. Patient presents to IOP self referred due to worsened symptoms of depression as she had completed this program 2 other times in the past. [place] endorses recently struggling with increased depressed mood, irritability and she has been withdrawn, with low motivation and energy, is not taking care of self and has been isolating and poor personal hygiene. Experiencing hopelessness and negative intrusive thoughts about dying though no active thoughts of suicide, poor memory and difficulty concentrating. She reports she has been more anxious as well but that her anxiety is situational and is worse when she is depressed. Discharge Diagnoses:: Bipolar 2 disorder, Generalized Anxiety Disorder, PMDD Reason for Discharge:: Pt voluntarily discharged from IOP tx as pt continues to struggle with post concussion sx and notes these are impeding her ability to participate in group activities or focus during sessions. The patient has expressed a desire to discharge from the Intensive Outpatient Program (IOP) level of care. Despite current challenges, she maintains an optimistic outlook, stating, ?I?ve gotten through this all before.? She demonstrates insight into her condition, referencing past experiences with more severe exacerbations of post-concussive symptoms and mental health difficulties. She identified that limiting exposure to overstimulating environments, engaging in daily physical activity, and participating in individual therapy have been effective strategies in the past. Treatment Progress During Treatment & Response: No significant clinical progress has been observed during the past week. The patient has reported experiencing overstimulation, which she verbalized to staff multiple times over the past week. At one point, she requested to spend an entire group session in a quiet, dark room to manage post-concussive symptoms. She has consistently declined participation in self-care activities, mindfulness exercises, and group programming, citing symptom exacerbation. While she has found IOP to be beneficial in the past the environment currently is to overstimulating which has caused her to disengage from group discussions/activities. Issues Still to be Addressed:: mood instability, depression, anxiety Discharge Recommendations/Instructions:: Pt contacted [facility], a local private practice, and scheduled an intake appointment for the patient with SHERRON Avila, on Saturday at 8:00 AM. The patient is also currently linked with a psychiatrist and has a scheduled appointment this week. Discharge Handout
== END 2024-11-09 10:57 | disposition home or self-care (01) ==
LOC: BHIOP 08:00
PROVIDERS: Referring Provider Internal Medicine; Visit Provider Internal Medicine
DX: F31.81 Bipolar II disorder (principal)
CPT/HCPCS: S9480; 90832; 90834; 90853